=== PATIENT | female | born 1950 | race Caucasian/White ===

== ENCOUNTER → 2017-11-11 08:01 | Outpatient (CLI) | payer MEDICARE, SELFPAY ==
[2017-11-11 08:27] LABS: Absolute Lymphocyte Count 1.12 X10^3/ul (0.83-4.51); Absolute Neutrophil Count 3.6 X10^3/uL (2.0-7.7); Basophil# 0.02 X10^3/uL; Basophil% 0.4 % (0-1); Eosinophil# 0.36 X10^3/uL; Eosinophils% 6.4 % (0-5); Hematocrit 45.5 % (37-47); Hemoglobin 15.9 g/dl (12.0-15.0); Lymphocyte # 1.12 X10^3/ul (4.0); Mean Corp Hgb Conc 34.9 g/gl (32-36); Mean Corpuscular Hgb 30.3 pg (27.0-32.0); Mean Corpuscular Volume 86.7 fL (81-99); Mean Platelet Vol. 10.9 fl (6.2-12.0); Monocyte# 0.45 X10^3/uL; Neutrophil # 3.64 X10^3/uL (2.7-7.7); Platelet Count 216 K/mm3 (150-450); RBC Distribution Width CV 13.3 % (11.6-14.6); RBC Distribution Width SD 41.9 fl (35.1-43.9); Red Blood Count 5.25 M/mm3 (4.2-5.4); White Blood Count 5.6 K/mm3 (4.4-11.0)
[2017-11-11 08:28] LABS: POSITIVE COUNT NO; POSITIVE DIFFERENTIAL NO; POSITIVE MORPHOLOGY NO
[2017-11-11 08:55] LABS: ALB/GLOB Ratio 1.1 RATIO (0.9-2.4); AST(SGOT) 44 U/L (15-37); Alanine Aminotransfer ALT/SGPT 66 U/L (13-56); Albumin, Serum 3.8 g/dL (3.2-5.0); Alkaline Phosphatase 86 U/L (45-117); Anion Gap 10 (5-15); BUN 22 mg/dL (7-18); BUN/Creat Ratio 20.4 RATIO (10-20); Calcium,Total 8.9 mg/dL (8.5-10.1); Chloride 106 mmol/L (98-107); Creatinine, Serum 1.08 mg/dL (0.55-1.02); EST Glomerular Filtration Rate 54 mL/min (>60); Est Glom Filt Rate - Afr Amer 65 mL/min (>60); Globulin 3.5 g/dL (2.2-4.2); Glucose 168 mg/dL (74-106); Potassium 4.1 mmol/L (3.5-5.1); Protein, Total 7.3 g/dL (6.4-8.2); Sodium Level 140 mmol/L (136-145)
[2017-11-11 16:07] LABS: Xtra Tube EP Lab EXTRA TUBE
[2017-11-12 11:35] LABS: Carcinoembryonic Antigen 2139 2.3 ng/mL (0.0-4.7)
== END ==
PROVIDERS: Family Provider Family Medicine; PCP Family Medicine; Visit Provider Internal Medicine Hematology & Oncology
DX: C18.4 Malignant neoplasm of transverse colon (principal); C18.7 Malignant neoplasm of sigmoid colon; C55 Malignant neoplasm of uterus, part unspecified; Z15.09 Genetic susceptibility to other malignant neoplasm
CPT/HCPCS: 36415; 80053; 82378; 85025

== ENCOUNTER 2018-06-29 06:53 | Day surgery (SDC) | payer MEDICARE, SELFPAY ==
[2018-06-29 07:17] VITALS: BP 168/101; PULSE 64; RESP 16; TEMP 36.6; O2SAT 98; BMI 42.7
[2018-06-29 07:40] LABS: Bedside Glucose 136 mg/dL (70-110)
--- NOTE | 2018-06-29 08:06 | H&P.OPEN ---
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 Patient did have ileal rectal anastomosis done previously. Patient states occasionally she may have diarrhea or normal bowel movements but denies any blood. Past Medical/Surgical History - Planned Operation Planned Operative Procedure/s: flexible sigmoidoscopy Date of Operative Procedure: 06/29/18 Permit Signed: Yes S.O.S: No Is This Patient Having a Total Joint: No - Previous Hospitalizations/Surgeries HX Hospitalizations: No HX of Surgeries: LEFT KNEE SURGERY, LEFT TOTAL KNEE 2010. TUBES TIED, TONSILLECTOMY, APPENDECTOMY. HYSTERECTOMY, BSO, LYMPH NODE DISSECTION. LARGE ILLIAC REMOVED 2008. COLECTOMY 2013/ COLON CA. COLONOSCOPY 2015. BIOPSY MOLE MELANOMA/ ARM LEFT, 2016. COLONOSCOPY 04/2017 Any Problems With Anesthesia: No You/Your Family Experience Fever (Hyperthermia) With Anes: No Cholinesterase deficiency: No - Cardiovascular Hx Chest Pain within Last 2 months: No Hx of Irregular Heartbeat and/or Afib: No Hx Heart Attack: No Hx Congestive Heart Failure: No Hx Rheumatic Fever: No Hx Hypertension: Yes - STATES CONTROLLED WITH MED Hx Internal Defibrillator: No Hx Pacemaker: No Hx Cardiac Catheterization: No Hx Cardiac Surgery/Stents/Etc.: No Hx Stress Test: No Hx Pain in Legs when Walking/Leg Cramps: Yes - AT TIMES - Respiratory Chronic Cough: No HX of Shortness of Breath: Yes - SLIGHTLY SOB WITH 2 FLIGHTS STAIRS Hoarseness: No Hx Chronic Obstructive Pulmonary Disease (COPD): No Hx Asthma: No Hx Emphysema: No Hx Sleep Apnea: No Hx Respiratory Tract Infection/Cold (presently): No Do You Snore Loudly (louder than talking or can be heard): No Do You Often Feel Tired/ Fatigued/ Sleepy Dring Daytime?: No Has Anyone Observed You Stop Breathing During Sleep?: No Result (for STOP score): Negative Hx Smoking: No Smoking Status: Never smoker - Gastrointestinal Hx Gastroesophageal Reflux: No Hx Gastrointestinal Disorders: Yes - COLON CA, COLECTOMY Hx Gastrointestinal Bleed: No Hx Ulcer: No Hx Hiatal Hernia: No Difficulty Chewing/Swallowing: No Special diet followed at home: No Hx Unplanned Weight Loss of 20#: No - PLANNED WT LOSS 7 # HX Unplanned Weight Gain of 20#: No - Neurological Hx Seizures: No HX Syncope/Blackout Spells/Unconsciousness: Yes - PASSED OUT 3 YRS AGO, NOT SINCE Hx CVA/Stroke: No Hx Transient Ischemic Attacks (TIA): No Hx Multiple Sclerosis: No Hx Parkinson's Disease: No Hx Head/Neck Injury: No Hx Headaches: No Hx Back Injury/Pain: Yes - BACK PAIN OCCAS Recent Onset of Speech Difficulty: No Restless Legs: No Does patient have nerve stimulator: No - Blood Disorder Hx Leukemia: No Bleeding Tendencies: Yes - BRUISE EASILY Hx Deep Vein Thrombosis: No Hx High Cholesterol: Yes - ON MED Blood Transmitted Disease: No Hx Hepatitis: No Hx Cirrhosis: No Hx Anemia: No Hx Blood Disorders: No - Reproduction Is Patient Lactating: No Hx Hysterectomy: Yes Hx Tubal Ligation: Yes Are You Post Menopause: Yes - Genitourinary Hx Renal Disease: No - Musculoskeletal Hx Arthritis: Yes Hx Rheumatoid Arthritis: No Hx Gout: No Recent Onset of an Orthopedic Problem: No - Endocrine Hx Diabetes: No Thyroid Disease: Yes - MULTINODULAR GOITER PER HX Hx Steroid Therapy: No - Psycho/Social Hx Substance Use: No Hx Alcohol Use: No Hx Anxiety: No Hx Depression: No Mental Illness: No Hx Dementia: No - Miscellaneous Hx Cancer: Yes - UTERINE CA, COLON CA, SKIN CA,LYMPH NODE Recent Exposure to Contagious Disease: No Hx of C-Diff: No Any Loose Teeth: - PARTIAL Allergies rofecoxib [From Vioxx] Allergy (Intermediate, Verified 05/19/18 13:05) Unknown DIZZINESS - Discharge Is Pt Admitted From a Skilled Nursing, or a [facility]: No Who Could Help: family Special Equipment Used at Home: can ready lips After D/C, Where Do you Plan to Go: Return Home - From the PAT History Number of Risk Factors: 4 - Physical Exam General: Alert, Oriented x3, Cooperative, No apparent distress HEENT: Atraumatic Lungs: Normal air movement Cardiovascular: Regular rate Abdomen: Soft, Non Tender, Non-Distended Extremities: No clubbing, No cyanosis, No edema Vital Signs Temp Pulse Resp BP Pulse Ox 97.9 F 64 16 168/101 H 98 06/29/18 07:17 06/29/18 07:17 06/29/18 07:17 11/14/18 07:17 06/29/18 07:17 Oxygen Delivery Method Room Air Weight: 233 lb 7.512 oz Body Mass Index (BMI) 42.7 POC Glucose 06/29/18 07:24 POC Glucose 136 H Assessment/Plan [age]-year-old female with Pickens syndrome for a screening flexible proctoscopy Surgery Risks - Colonoscopy I discussed with the patient the risks of the procedure: Yes Risks Include but are not Limited To: Risks include but are not limited to: Bleeding, perforation requiring further surgery, inability to complete colonoscopy requiring barium enema. Patient no further questions at this time.
[2018-06-29 08:19] VITALS: BP 147/87; BP 178/90; O2SAT 95; O2SAT 96
--- NOTE | 2018-06-29 08:26 | OP.ENDO_ITS ---
Patient Name: Hermelinda López Procedure Date: 06/29/2018 7:56 AM Date of : 1950 Age: 67 Procedure: Colonoscopy Indications: High risk colon cancer surveillance: Personal history of sessile serrated colon polyp (less than 10 mm in size) with no dysplasia, High risk colon cancer surveillance: Personal history of hereditary nonpolyposis colorectal cancer (Pickens Syndrome) Providers: Isabel Santo MD Referring MD: Isabel Santo MD Medicines: None Patient Profile: Last Colonoscopy: June 2017. This is a 67 year old female. She is status post subtotal colectomy in the distant past. Complications: No immediate complications. Procedure: Pre-Anesthesia Assessment: - Prior to the procedure, a History and Physical was performed, and patient medications and allergies were reviewed. The patient's tolerance of previous anesthesia was also reviewed. The risks and benefits of the procedure and the sedation options and risks were discussed with the patient. All questions were answered, and informed consent was obtained. Prior Anticoagulants: The patient has taken no previous anticoagulant or antiplatelet agents. ASA Grade Assessment: II - A patient with mild systemic disease. After reviewing the risks and benefits, the patient was deemed in satisfactory condition to undergo the procedure. After I obtained informed consent, the scope was passed under direct vision. Throughout the procedure, the patient's blood pressure, pulse, and oxygen saturations were monitored continuously. The pediatric colonoscope was introduced through the anus and advanced to the ileorectal anastomosis. The colonoscopy was performed without difficulty. The patient tolerated the procedure well. The quality of the bowel preparation was good. Scope In: 8:10:40 AM Scope Out: 8:15:28 AM Total Procedure Duration Time 0 hours 4 minutes 48 seconds Findings: The perianal and digital rectal examinations were normal. The entire examined rectum appeared normal on direct and retroflexion views. Impression: - The entire examined rectum is normal on direct and retroflexion views. - No specimens collected. Recommendation: - Discharge patient to home. - Continue present medications. - Repeat colonoscopy in 2 years for surveillance. Procedure Code(s): --- Professional --- G0105, Colorectal cancer screening; colonoscopy on individual at high risk Diagnosis Code(s): --- Professional --- Z86.010, Personal history of colonic polyps Z85.038, Personal history of other malignant neoplasm of large intestine Z15.09, Genetic susceptibility to other malignant neoplasm CPT copyright 2017 [employer]. All rights reserved. The codes documented in this report are preliminary and upon inset cutter review may be revised to meet current compliance requirements. MD Isabel See MD 06/29/2018 8:25:40 AM This report has been signed electronically. Number of Addenda: 0 Note Initiated On: 06/29/2018 7:56 AM
== END 2018-06-29 08:44 | disposition home or self-care (01) ==
LOC: EN 06:53 → AC 06:55
PROVIDERS: Family Provider Family Medicine; PCP Family Medicine; Referring Provider Surgery; Visit Provider Surgery
DX: Z12.11 Encounter for screening for malignant neoplasm of colon (principal); Z15.09 Genetic susceptibility to other malignant neoplasm; M19.90 Unspecified osteoarthritis, unspecified site; Z86.010 Personal history of colon polyps; Z85.038 Personal history of other malignant neoplasm of large intestine; Z90.49 Acquired absence of other specified parts of digestive tract; Z85.42 Personal history of malignant neoplasm of other parts of uterus; Z85.828 Personal history of other malignant neoplasm of skin
CPT/HCPCS: G0121; 82962; J7120

== ENCOUNTER → 2018-08-01 09:56 | Outpatient (CLI) | payer MEDICARE, SELFPAY ==
--- NOTE | 2018-08-01 09:59 | BI_ITS ---
MAMMOGRAPHY - BILATERAL SCREENING REASON FOR EXAM: Female, 67 years old. Routine annual screening examination. PERTINENT HISTORY: Grandmother with breast cancer. TECHNIQUE: Digital bilateral breast grover (3D mammographic acquisition) in the CC and MLO projections. 2-D mediolateral oblique (MLO) and craniocaudad (CC) views of both breasts were obtained. CAD: Full Field Digital Mammography with Computer Added Detection was performed. COMPARISON: Comparison is made with prior examination dated July 29, 2017 and July 28, 2016. FINDINGS: Breast Composition: The breasts are almost entirely fatty. There are no dominant masses or suspicious calcifications. No other significant abnormalities are identified. There has been no significant change since the prior study. BI/SCREENING MAMM (CAD), BILAT IMPRESSION: Stable bilateral screening mammogram. Yearly follow-up mammogram recommended. (A) ASSESSMENT CATEGORY: BIRADS Category 1: Negative. A letter regarding these results will be sent to the patient by the facility within 30 days. Approximately 10% of breast cancers are not detected by mammography. A normal mammogram should not delay biopsy of a clinically suspicious abnormality. [id number] Electronically Signed: Howie De Paz MD at 11:05 EST Tel [phone], Service support ,
--- OUTSIDE RECORDS SUMMARY | 2018-11-02 22:23 | XMS RPT_ITS ---
:1950 Author Organization OHIP Support Name Relationship Address Phone SANTA LÓPEZ Unavailable [address] + [place] [address] R Unavailable Unavailable Unavailable LESLIE, SANTA Unavailable [address] + [place] [address] R Unavailable Unavailable Unavailable LESLIE, SANTA Unavailable [address] + [place] [address] R Unavailable Unavailable Unavailable LESILE, SANTA Unavailable Unavailable + LESLIE, SANTA Unavailable Unavailable + LESLIE, SANTA Unavailable Unavailable + LESLIE, SANTA Unavailable [address] + [place] [address] R Unavailable Unavailable Unavailable LESLIE, SANTA Unavailable [address] + [place] [address] R Unavailable Unavailable Unavailable LESLIE, SANTA Unavailable Unavailable + LESLIE, SANTA Unavailable Unavailable + LESLIE, SANTA Unavailable Unavailable + LESLIE, SANTA Unavailable Unavailable + LESLIE, SANTA Unavailable Unavailable + LESLIE, SANTA Unavailable Unavailable + LESLIE, SANTA Unavailable Unavailable + LESLIE, SANTA Unavailable Unavailable + LESLIE, SANTA Unavailable Unavailable + LESLIE, SANTA Unavailable [address] + [place] [address] R Unavailable Unavailable Unavailable LESLIE, SANTA Unavailable [address] + [place] [address] R Unavailable Unavailable Unavailable Care Team Providers Name Role Phone ANGELINA FOSTER, BRITTON Attending Unavailable ROSA ZAFAR, DR. CAIN Lamb Primary Care Unavailable ANGELINA FOSTER, BRITTON Attending Unavailable ROSA ZAFAR, DR. CAIN Lamb Primary Care Unavailable ANGELINA FOSTER, BRITTON Attending Unavailable ROSA ZAFAR, DR. CAIN Lamb Primary Care Unavailable ANGELINA FOSTER, BRITTON Attending Unavailable ROSA ZAFAR, DR. CAIN Lamb Primary Care Unavailable Isckarus, Mansour Attending Unavailable NAUMOFF, CAIN Primary Care Unavailable Prah, Tao Consulting Unavailable Prah, Tao Attending Unavailable NAUMOFF, CAIN Referring Unavailable NAUMOFF, CAIN Primary Care Unavailable Isckarus, Mansour Attending Unavailable NAUMOFF, CAIN Primary Care Unavailable Isckarus, Mansour Attending Unavailable Prah, Tao Consulting Unavailable Isckarus, Mansour Attending Unavailable NAUMOFF, CAIN Referring Unavailable NAUMOFF, CAIN Primary Care Unavailable Prah, Tao Consulting Unavailable Robotham, Isabel Attending Unavailable Robotham, Isabel Referring Unavailable ROSA, CAIN Primary Care Unavailable Robotham, Isabel Attending Unavailable PROBLEMS PROBLEMS DATE TYPE CONDITION / CODE ATTENDING STATUS SOURCE 08/01/2018 Unknown Z12.31 - Encounter Isckarus, Active Mike for screening [facility] mammogram for Hospital malignant neoplasm Repository of breast / Z12.31(ICD-10) 07/18/2018 Unknown Z85.038 - Personal Robotham, Active [place] history of other [facility] malignant neoplasm Hospital of large intestine / Repository Z85.038(ICD-10) 07/18/2018 Unknown Z86.010 - Personal Robotham, Active Mike history of colonic [facility] polyps / Hospital Z86.010(ICD-10) Repository 05/19/2018 Unknown C55 - Malignant Tao Peters Active [facility] neoplasm of uterus, Community part unspecified / Hospital C55(ICD-10) Repository 05/19/2018 Unknown C18.4 - Malignant PraTao cantu Active [facility] neoplasm of Community transverse colon / Hospital C18.4(ICD-10) Repository 05/19/2018 Unknown C18.7 - Malignant PraTao cantu Active [facility] neoplasm of sigmoid Community colon / Hospital C18.7(ICD-10) Repository 11/18/2017 Unknown Z15.09 - Genetic Isckarus, Active [place] susceptibility to Mansour Community other malignant Hospital neoplasm / Repository Z15.09(ICD-10) PROCEDURES PROCEDURES No Procedure Records FoundRESULTS RESULTS SCREENING MAMM (CAD), Observed: 08/01/2018 Status: F Source: [place]KE RIOS 10:00 AM [facility] REPOSITORY [facility] Imaging Services [address] [place] [address] SCREENING MAMM (CAD), BILAT MR#: [id number] Acct: [id number] Name: HERMELINDA LÓPEZ Rep #: [id number] : 1950 F 67 From: Howie De Paz MD PCP: Cain Knapp MD Status: REG CLI Study: SCREENING MAMM (CAD), BILAT Date of Exam: 08/01/18 Exam# [id number] Ordering Dr: Devendra Driver MD MAMMOGRAPHY - BILATERAL SCREENING REASON FOR EXAM: Female, 67 years old. Routine annual screening examination. PERTINENT HISTORY: Grandmother with breast cancer. TECHNIQUE: Digital bilateral breast grover (3D mammographic acquisition) in the CC and MLO projections. 2-D mediolateral oblique (MLO) and craniocaudad (CC) views of both breasts were obtained. CAD: Full Field Digital Mammography with Computer Added Detection was performed. COMPARISON: Comparison is made with prior examination dated July 29, 2017 and July 28, 2016. FINDINGS: Breast Composition: The breasts are almost entirely fatty. There are no dominant masses or suspicious calcifications. No other significant abnormalities are identified. There has been no significant change since the prior study. BI/SCREENING MAMM (CAD), BILAT IMPRESSION: Stable bilateral screening mammogram. Yearly follow-up mammogram recommended. (A) ASSESSMENT CATEGORY: BIRADS Category 1: Negative. A letter regarding these results will be sent to the patient by the facility within 30 days. Approximately 10% of breast cancers are not detected by mammography. A normal mammogram should not delay biopsy of a clinically suspicious abnormality. [id number] Electronically Signed: Howie De Paz MD at 11:05 EST Tel [phone], Service support , CC: Cain Knapp MD; Devendra Driver MD Beam Press Operator: Signed HISTORY AND PHYSICAL Observed: 06/29/2018 Status: F Source: [place] EXAM 2:41 PM [facility] REPOSITORY [facility] Medical Records Department [address] [place] [address] History and Physical 06/29/18 0806 MR#: [id number] Acct: [id number] Name: HERMELINDA LÓPEZ Rep #: [id number] : 1950 67 From: Isabel Santo MD PCP: Cain Knapp MD Status: [facility] Y Location: EN History of Present Illness Date of Admission: 06/29/18 The patient is a 67 year old F presents for a screening 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 Patient did have ileal rectal anastomosis done previously. Patient states occasionally she may have diarrhea or normal bowel movements but denies any blood. Past Medical/Surgical History - Planned Operation Planned Operative Procedure/s: flexible sigmoidoscopy Date of Operative Procedure: 06/29/18 Permit Signed: Yes S.O.S: No Is This Patient Having a Total Joint: No - Previous Hospitalizations/Surgeries HX Hospitalizations: No HX of Surgeries: LEFT KNEE SURGERY, LEFT TOTAL KNEE 2010. TUBES TIED, TONSILLECTOMY, APPENDECTOMY. HYSTERECTOMY, BSO, LYMPH NODE DISSECTION. LARGE ILLIAC REMOVED 2008. COLECTOMY 2013/ COLON CA. COLONOSCOPY 2015. BIOPSY MOLE MELANOMA/ ARM LEFT, 2017. COLONOSCOPY 04/2017 Any Problems With Anesthesia: No You/Your Family Experience Fever (Hyperthermia) With Anes: No Cholinesterase deficiency: No - Cardiovascular Hx Chest Pain within Last 2 months: No Hx of Irregular Heartbeat and/or Afib: No Hx Heart Attack: No Hx Congestive Heart Failure: No Hx Rheumatic Fever: No Hx Hypertension: Yes - STATES CONTROLLED WITH MED Hx Internal Defibrillator: No Hx Pacemaker: No Hx Cardiac Catheterization: No Hx Cardiac Surgery/Stents/Etc.: No Hx Stress Test: No Hx Pain in Legs when Walking/Leg Cramps: Yes - AT TIMES - Respiratory Chronic Cough: No HX of Shortness of Breath: Yes - SLIGHTLY SOB WITH 2 FLIGHTS STAIRS Hoarseness: No Hx Chronic Obstructive Pulmonary Disease (COPD): No Hx Asthma: No Hx Emphysema: No Hx Sleep Apnea: No Hx Respiratory Tract Infection/Cold (presently): No Do You Snore Loudly (louder than talking or can be heard): No Do You Often Feel Tired/ Fatigued/ Sleepy Dring Daytime?: No Has Anyone Observed You Stop Breathing During Sleep?: No Result (for STOP score): Negative Hx Smoking: No Smoking Status: Never smoker - Gastrointestinal Hx Gastroesophageal Reflux: No Hx Gastrointestinal Disorders: Yes - COLON CA, COLECTOMY Hx Gastrointestinal Bleed: No Hx Ulcer: No Hx Hiatal Hernia: No Difficulty Chewing/Swallowing: No Special diet followed at home: No Hx Unplanned Weight Loss of 20#: No - PLANNED WT LOSS 7 # HX Unplanned Weight Gain of 20#: No - Neurological Hx Seizures: No HX Syncope/Blackout Spells/Unconsciousness: Yes - PASSED OUT 3 YRS AGO, NOT SINCE Hx CVA/Stroke: No Hx Transient Ischemic Attacks (TIA): No Hx Multiple Sclerosis: No Hx Parkinson's Disease: No Hx Head/Neck Injury: No Hx Headaches: No Hx Back Injury/Pain: Yes - BACK PAIN OCCAS Recent Onset of Speech Difficulty: No Restless Legs: No Does patient have nerve stimulator: No - Blood Disorder Hx Leukemia: No Bleeding Tendencies: Yes - BRUISE EASILY Hx Deep Vein Thrombosis: No Hx High Cholesterol: Yes - ON MED Blood Transmitted Disease: No Hx Hepatitis: No Hx Cirrhosis: No Hx Anemia: No Hx Blood Disorders: No - Reproduction Is Patient Lactating: No Hx Hysterectomy: Yes Hx Tubal Ligation: Yes Are You Post Menopause: Yes - Genitourinary Hx Renal Disease: No - Musculoskeletal Hx Arthritis: Yes Hx Rheumatoid Arthritis: No Hx Gout: No Recent Onset of an Orthopedic Problem: No - Endocrine Hx Diabetes: No Thyroid Disease: Yes - MULTINODULAR GOITER PER HX Hx Steroid Therapy: No - Psycho/Social Hx Substance Use: No Hx Alcohol Use: No Hx Anxiety: No Hx Depression: No Mental Illness: No Hx Dementia: No - Miscellaneous Hx Cancer: Yes - UTERINE CA, COLON CA, SKIN CA,LYMPH NODE Recent Exposure to Contagious Disease: No Hx of C-Diff: No Any Loose Teeth: - PARTIAL Allergies rofecoxib [From Vioxx] Allergy (Intermediate, Verified 05/19/18 13:05) Unknown DIZZINESS - Discharge Is Pt Admitted From a Retirement, or a Retirement: No Who Could Help: family Special Equipment Used at Home: can ready lips After D/C, Where Do you Plan to Go: Return Home - From the PAT History Number of Risk Factors: 4 - Physical Exam General: Alert, Oriented x3, Cooperative, No apparent distress HEENT: Atraumatic Lungs: Normal air movement Cardiovascular: Regular rate Abdomen: Soft, Non Tender, Non-Distended Extremities: No clubbing, No cyanosis, No edema Vital Signs Temp Pulse Resp BP Pulse Ox 97.9 F 64 16 168/101 H 98 06/29/18 07:17 06/29/18 07:17 06/29/18 07:17 06/29/18 07:17 06/29/18 07:17 Oxygen Delivery Method Room Air Weight: 233 lb 7.512 oz Body Mass Index (BMI) 42.7 POC Glucose POC Glucose 136 H Assessment/Plan [age]-year-old female with Pickens syndrome for a screening flexible proctoscopy Surgery Risks - Colonoscopy I discussed with the patient the risks of the procedure: Yes Risks Include but are not Limited To: Risks include but are not limited to: Bleeding, perforation requiring further surgery, inability to complete colonoscopy requiring barium enema. Patient no further questions at this time. 06/29/18 1441 <Electronically signed by Isabel Santo MD> Date Isabel Santo MD Cosigner Signature: Date (if applicable) CC: Cain Knapp MD; Isabel Santo MD Signed OPERATIVE REPORT - Observed: 06/29/2018 Status: F Source: [place] ENDOSCOPY 8:26 AM [facility] REPOSITORY [facility] Medical Records Department [address] [place] [address] Operative Report - Endoscopy MR#: [id number] Acct: [id number] Name: HERMELINDA LÓPEZ Rep #: [id number] : 1950 67 From: Isabel Santo MD PCP: Cain Knapp MD Status: REG [facility] Patient Name: Hermelinda López Procedure Date: 06/29/2018 7:56 AM Date of : 1950 Age: 67 Procedure: Colonoscopy Indications: High risk colon cancer surveillance: Personal history of sessile serrated colon polyp (less than 10 mm in size) with no dysplasia, High risk colon cancer surveillance: Personal history of hereditary nonpolyposis colorectal cancer (Pickens Syndrome) Providers: Isabel Santo MD Referring MD: Isabel Santo MD Medicines: None Patient Profile: Last Colonoscopy: June 2017. This is a 67 year old female. She is status post subtotal colectomy in the distant past. Complications: No immediate complications. Procedure: Pre-Anesthesia Assessment: - Prior to the procedure, a History and Physical was performed, and patient medications and allergies were reviewed. The patient's tolerance of previous anesthesia was also reviewed. The risks and benefits of the procedure and the sedation options and risks were discussed with the patient. All questions were answered, and informed consent was obtained. Prior Anticoagulants: The patient has taken no previous anticoagulant or antiplatelet agents. ASA Grade Assessment: II - A patient with mild systemic disease. After reviewing the risks and benefits, the patient was deemed in satisfactory condition to undergo the procedure. After I obtained informed consent, the scope was passed under direct vision. Throughout the procedure, the patient's blood pressure, pulse, and oxygen saturations were monitored continuously. The pediatric colonoscope was introduced through the anus and advanced to the ileorectal anastomosis. The colonoscopy was performed without difficulty. The patient tolerated the procedure well. The quality of the bowel preparation was good. Scope In: 8:10:40 AM Scope Out: 8:15:28 AM Total Procedure Duration Time 0 hours 4 minutes 48 seconds Findings: The perianal and digital rectal examinations were normal. The entire examined rectum appeared normal on direct and retroflexion views. Impression: - The entire examined rectum is normal on direct and retroflexion views. - No specimens collected. Recommendation: - Discharge patient to home. - Continue present medications. - Repeat colonoscopy in 2 years for surveillance. Procedure Code(s): --- Professional --- G0105, Colorectal cancer screening; colonoscopy on individual at high risk Diagnosis Code(s): --- Professional --- Z86.010, Personal history of colonic polyps Z85.038, Personal history of other malignant neoplasm of large intestine Z15.09, Genetic susceptibility to other malignant neoplasm CPT copyright 2017 [employer]. All rights reserved. The codes documented in this report are preliminary and upon entry level marketing assistant review may be revised to meet current compliance requirements. MD Isabel See MD 06/29/2018 8:25:40 AM This report has been signed electronically. Number of Addenda: 0 Note Initiated On: 06/29/2018 7:56 AM 06/29/18 0826 Date Isabel Santo MD Cosigner Signature: Date (if indicated) CC: Cain Knapp MD; Isabel Santo MD Date Dictated: 06/29/18 0756 Date Transcribed: Beam Press Operator: WANG Signed BEDSIDE GLUCOSE Collected: 06/29/2018 Status: F Source: [place]KE 7:24 AM [facility] REPOSITORY TYPE CODE TESTS RESULT OUT OF REFERENCE UNITS RANGE LAB L501.080 70-110 mg/dL High BEDSIDE GLU 136 Result Comment: MANAGEMENT OF PATIENT CARE PER NURSING PROTOCOL Performed By: #### L501.080 #### [facility] Laboratory Point of Care [address] [place] [address] TSH Collected: 06/07/2018 Status: F Source: [facility] 3:47 PM [facility] [place] REPOSITORY TYPE CODE TESTS RESULT OUT OF RANGE REFERENCE UNITS LAB TSH(LOINC) 0.36-3.74 mcIU/mL TSH 1.03 Performed By: #### TSH, FT4, FT3 #### [facility] [address] [place] [address] FT4 Collected: 06/07/2018 Status: F Source: [facility] 3:47 PM [facility] [place] REPOSITORY TYPE CODE TESTS RESULT OUT OF RANGE REFERENCE UNITS LAB FT4(LOINC) 0.76-1.46 ng/dL Free T4 0.80 Performed By: #### TSH, FT4, FT3 #### [facility] [address] [place] [address] FT3 Collected: 06/07/2018 Status: F Source: [facility] 3:47 PM [facility] [place] REPOSITORY TYPE CODE TESTS RESULT OUT OF RANGE REFERENCE UNITS LAB FT3(LOINC) 2.30-4.00 pg/mL Free T3 2.90 Performed By: #### TSH, FT4, FT3 #### [facility] [address] [place], [place] [id number] ONCOLOGY VISIT REPORT Observed: 05/19/2018 Status: F Source: [place] 1:49 PM [facility] REPOSITORY [facility] [address] [place] [address] OFFICE VISIT Date of Service: 05/19/18 1304 MR#: [id number] Acct: [id number] Name: HERMELINDA LÓPEZ Rep #: [id number] : 1950 From: Devendra Driver MD Age/Sex: 67/F Location: OMD Status: Signed - Problem List (1) Pickens syndrome Status: Chronic (2) Uterine cancer Status: Chronic Comment: 2002 (3) Cancer of transverse colon Status: Chronic Comment: stage ii, 2013 (4) Cancer of sigmoid colon Status: Chronic Comment: stage II, 2013 - Date of Service Date of Service:: 05/19/18 - Chief Complaint Pickens syndrome follow-up - History of Present Illness 67 YOF with Pickens Syndrome and H/O: 1. 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 Date of diagnosis: April 2014. S/P total colectomy with ileorectal anastomosis. 2. Invasive moderately differentiated adenocarcinoma of the uterus, endometrioid type, with superficial myometrial invasion and confined to the inner one-third of the myometrium (T1B, N0, M0). S/P hysterectomy, BSO and lymph node dissection. Date of diagnosis: 12/18/2002. 3. 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 Date of diagnosis: 10/01/2005. S/P 7 cycles of carbo/Taxol, completed 02/25/2006. 4. Recurrent adenocarcinoma involving the left iliac node. S/P CT-guided core biopsy 09/28/2008. S/P XRT completed 02/01/2009. 5. Multinodular goiter. F/U with Dr Marion (ENT) - Past Medical/Social History Past Medical History Other Past Medical History: Deaf in Right Ear; wears hearing aid left ear Cancer: Colon cancer,Uterine cancer,Skin Other Cancer History: History of chemo (2005), radiation (2008 for lymph node involvement) 2013-large intestine removed d/t colon cancer 2 sons from Colon Cancer Past Surgical History Surgical: Colon resection,Hysterectomy,Knee replacement Other Surgical History: total hysterectomy 2002 (uterine ca) Large intestine removed to remove colon cancer 2013 Family History Paternal Past Medical History: Congestive heart failure Maternal Past Medical History: Unknown Maternal History of Cancer: Bladder cancer,Skin cancer Social History Smoking Status Never smoker Review of Systems Constitutional:: Denies: Fever, Sweats, Weight loss, Appetite change, Chills Cardiovascular:: Reports: Dyspnea on exertion - Chronic. Denies: Chest pain, Palpitations, Orthopnea, PND, Shortness of breath Respiratory: Reports: Shortness of breath upon exertion. Denies: Cough, Hemoptysis, Shortness of Breath, Wheezing Gastrointestinal:: Reports: Diarrhea, Constipation - Bouts of diarrhea and constipation O depending on what I eat. Denies: Abdominal pain, Nausea, Vomiting, Hematochezia Genitourinary: Denies: Dysuria, Hematuria, 15, Flank pain Musculoskeletal:: Denies: Back pain, Myalgia, Arthralgia Skin: Denies: Rash, Skin Changes, Wounds Neurological:: Reports: Hearing loss - Chronic. Denies: Headache, Dizziness, Visual changes, Tinnitus Psychiatric: Denies: Anxiety, Depression, Homicidal Ideations, Suicidal Ideations Vital Signs Height 5 ft 2 in Weight: 111.856 kg Weight in Pounds 246.6 lbs Pulse Ox 98 - Physical Exam General: Alert, Oriented x3, No apparent distress, - - Hard of hearing Obese ECOG 1 HEENT: Atraumatic, PERRLA, EOMI, Normocephalic Oropharynx:: Dry mucosa Neck:: Supple, Trachea midline. Negative for: JVD, bilateral Cardiac:: Regular rate, Regular rhythm, Normal S1, Normal S2. Negative for: Murmur Lungs: Clear to auscultation, Excusion symmetrical. Negative for: Rhonchi, Wheezes Abdomen:: Soft, Non-tender, Non-distended. Negative for: Hepatosplenomegaly Extremities:: - - Lower extremities with evidence for chronic venous insufficiency no ulcerations. Negative for: Cyanosis, Edema Neurological: Neuro grossly intact Skin:: Negative for: Lesions, Rash, Petechiae, Ecchymosis Psychiatric:: Appropriate affect, Euthymic Lymphatics:: Negative for: Cervical lymphadenopathy, Supraclavicular lymphadenopathy, Axillary lymphadenopathy Laboratory Data: Reviewed in EMR CBC, CMP Pathology Data: Urine cytology November 2017 no malignant cells seen Assessment and Plan Pickens syndrome is an autosomal dominant disorder caused by a germline mutation in one of several DNA mismatch repair genes. Pickens syndrome is characterized by an increased risk of colorectal cancer (CRC). Individuals with Pickens syndrome also have an increased risk of extracolonic malignancies, the most common of which is endometrial cancer. Other sites of cancer include the ovary, stomach, small bowel, hepatobiliary system, renal pelvis, and ureter, brain, and skin. There may also be an increased risk of breast, prostate, and pancreatic cancer in individuals with Pickens syndrome. Individuals with Pickens syndrome should undergo screening for CRC and extracolonic cancers. - Annual colonoscopy starting between the ages of 20 and 25 years, or two to five years prior to the earliest age of CRC diagnosis in the family, whichever comes first. In patients with Pickens syndrome undergoing surgery for CRC total colectomy with ileorectal anastomosis and annual endoscopic surveillance of the remaining rectum - Annual screening for endometrial and ovarian cancer beginning at age 30 to 35 years, or three to five years earlier than the earliest age of diagnosis of these cancers in the family - Upper endoscopy with biopsy of the gastric antrum starting at 30 to 35 years and treatment of Helicobacter pylori infection when found on biopsy. Repeat upper endoscopy every two to three years in individuals with risk factors for gastric cancer. - Annual urinalysis examination beginning at age 30 to 35 years. - Annual physical examination including careful skin and neurological examination beginning at age 25 to 30 years. - Aspirin significantly reduces the incidence of cancer in Pickens syndrome. However, further studies are needed to identify the optimal dose and to clarify the overall benefits in CRC prevention and cardiovascular endpoints compared with potential risks such as bleeding. Recommendations: Screenin- F/U with Dr Santo for lower GI endoscopy 06/2018 +/- EGD (last colonoscopy was 06/2017, EGD was 06/2017) 2- Mammo due 07/2018. 3- Urine cytology is due 11/2018. 4- Dermatology for skin cancer screen. annual to schedule 5- F/U with Dr Marion (ENT) reg. Thyroid as instructed Prevention: Take one baby ASA daily. Patient was seen impression and recommendations reviewed follow- up in 6 months Medications: Prescriptions This Visit Medication Instructions Recorded Furosemide [Lasix] 20 mg PO DAILY 05/13/17 Glimepiride [Amaryl] 1 mg PO DAILY 11/18/17 Primary Care Provider: Referring Provider: 05/19/18 2343 <Electronically signed by Devendra Driver MD> Date Devendra Driver MD Cosigner Signature: Date (if applicable) CC: CBC W/DIFF, AUTOMATED Collected: 05/12/2018 Status: F Source: [place] 8:27 AM [facility] REPOSITORY Order Comment: Reason for Laboratory Test . TYPE CODE TESTS RESULT OUT OF RANGE REFERENCE UNITS LAB L100.1000 4.4-11.0 K/mm3 Normal WBC 5.5 LAB L100.1200 4.2-5.4 M/mm3 Normal RBC 5.10 LAB L100.1300 12.0-15.0 g/dl High HGB 15.6 LAB L100.1400 37-47 % Normal HCT 44.3 LAB L100.1500 81-99 fL Normal MCV 86.9 LAB L100.1600 27.0-32.0 pg Normal MCH 30.6 LAB L100.1700 32-36 g/gl Normal MCHC 35.2 LAB L100.1810 11.6-14.6 % Normal RDW CV 13.6 LAB L100.1820 35.1-43.9 fl Normal RDW SD 42.6 LAB L100.1900 150-450 K/mm3 Normal PLT 213 LAB L100.2000 6.2-12.0 fl Normal MPV 11.0 LAB L100.2100 47-70 % Normal NEUT% 58.6 LAB L100.2200 19-41 % Normal LY% 26.0 LAB L100.2300 0-10 % Normal MONO% 7.5 LAB L100.2400 0-5 % High EO% 7.3 LAB L100.2500 0-1 % Normal BASO% 0.4 LAB L100.2550 0.0-0.9 % Normal IM GRAN % 0.200 Result Comment: IG% - Immature Granulocytes (promyelocytes, myelocytes and metamyelocytes) > 1% indicates that a LEFT SHIFT is Present. LAB L100.2620 2.0-7.7 X10 3/uL Normal Absolute Neut 3.2 LAB L100.2720 0.83-4.51 X10 3/ul Normal Absolute Lymph 1.42 Performed By: #### L100.0100, L500.4050 #### [facility] [address] [facility]. [place], [place], [address] COMPREHENSIVE METABOLIC Collected: 05/12/2018 Status: F Source: [facility] 8:27 AM [facility] REPOSITORY Order Comment: Reason for Laboratory Test . TYPE CODE TESTS RESULT OUT OF RANGE REFERENCE UNITS LAB L501.0100 74-106 mg/dL High GLU 132 Result Comment: Fasting Glucose result greater than or equal to 126 mg/dL suggests DIABETES MELLITUS per A.D.A. criteria. Please note revised GLUCOSE reference range effective 2017. LAB L501.1000 7-18 mg/dL High BUN 21 LAB L501.1100 0.55-1.02 mg/dL High CREAT,SERUM 1.09 Result Comment: The validity of the calculated GFR AND GFRAA in patients over 70 years has not been determined. Clinical correlation is essential. LAB L501.1110 >60 mL/min Low EST GFR 53 Result Comment: Non- GFR Calc LAB L501.1115 >60 mL/min Normal EST GFR - AA 64 Result Comment: GFR Calc LAB L501.1255 ml/min Normal Estimated CRCL 39.61 LAB L501.1300 10-20 RATIO Normal BUN/CRE 19.3 LAB L501.1500 6.4-8. g/dL Normal 2 T PROT 7.1 LAB L501.1800 3.2-5. g/dL Normal 0 ALB 3.9 LAB L501.1950 2.2-4. g/dL Normal 2 GLOB 3.2 LAB L501.2000 0.9-2. RATIO Normal 4 A/G 1.2 LAB L501.2200 8.5-10 mg/dL Normal .1 CA 8.9 LAB L501.4100 15-37 U/L Normal AST 23 LAB L501.4305 45-117 U/L Normal ALK P 76 LAB L501.4405 13-56 U/L Normal ALT 38 LAB L501.4600 0.20-1 mg/dL Normal .00 T BILI 0.90 LAB L501.5300 136-14 mmol/L Normal 5 NA 139 LAB L501.5600 3.5-5. mmol/L Normal 1 K 4.1 LAB L501.5900 98-107 mmol/L Normal CL 106 LAB L501.6100 21.0-3 mmol/L Normal 2.0 CO2 26.0 LAB L501.6200 5-15 Normal GAP 7 Performed By: #### L100.0100, L500.4050 #### [facility] [address] [facility]. [place], [place], [address] NM THYROID IMAGING Observed: 03/21/2018 Status: F Source: [place] W/UPTAKE MULTIPLE 1:00 PM [facility] REPOSITORY ORIGINAL NM THYROID IMAGING W/UPTAKE MULTIPLE Clinical Statement: HYPERTHYROIDISM Technique: Radiopharmaceutical: I 123 PO Dose: 261uCi Anterior and anterior oblique pinhole images Iodine uptake measurements at 6 and 24 hours Comparison study: Thyroid ultrasound 02/15/2018 Report: The 6 hour iodine uptake is 6.9 The 24 hour iodine uptake is 12.0 The thyroid gland appears normal in size. There is decreased iodine uptake which produces suboptimal imaging of the thyroid. There is a heterogenous appearance of the thyroid which correlates with findi ngs on the comparison ultrasound. Impression: Decreased iodine uptake (6.9% and 12.0% at 6 and 24 hours, respectively) and heterogenous appearance of the thyroid. The low iodine uptake is discordant with the clinical history of hyperthy roidism. Correlation with symptoms and laboratory values recommended. I have personally reviewed the images of this examination and agree with the resident's findings and interpretation. Interpreted By: Alejo Roblero MD Preliminary Report By: Claudio Kelsey MD Electronically Signed By: Alejo Roblero MD Dictated Date: 03/22/2018 9:48:20 AM Prelim Date: 03/22/2018 3:08:16 PM Sign Date: 03/22/2018 4:56:18 PM US THYROID Observed: 02/15/2018 Status: F Source: [place] 2:00 PM [facility] REPOSITORY ORIGINAL US THYROID CLINICAL STATEMENT: HYPERTHYROIDISM COMPARISON: 04/27/2017 FINDINGS: Size right thyroid lobe: 5.1 x 2.0 x 2.0 cm Size left thyroid lobe: 5.8 x 1.7 x 1.6 cm Size isthmus: 0.4 cm Estimated total number of nodules greater than or equal to 1 cm: 5 Previously visualized nodule in isthmus is no longer visualized. Nodule 1: Size: 2.0 x 1.9 x 1.2 cm, minimally decreased in size Location: Left Lower Composition: mixed cystic and solid: 1 point Echogenicity: hypoechoic: 2 points Shape: wider than tall: 0 points Margins: smooth: 0 points Echogenic foci: macrocalcifications: 1 point ACR Total Points: 4; ACR TI-RADS risk category: TR4 - moderately suspicious nodule. Nodule 2: Size: 1.8 x 1.7 x 1.2 cm, slightly decreased in size Location: Left Lower Composition: solid or almost completely solid: 2 points Echogenicity: isoechoic: 1 point Shape: wider than tall: 0 points Margins: ill-defined: 0 points Echogenic foci: none: 0 points ACR Total Points: 3; ACR TI-RADS risk category: TR3 - mildly suspicious nodule. Nodule 3: Size: 1.6 x 1.2 x 0.7 cm, slightly increased in size Location: Right Lower. Previously this was labeled to be within the isthmus Composition: solid or almost completely solid: 2 points Echogenicity: isoechoic: 1 point, most of the lesion Shape: wider than tall: 0 points Margins: smooth: 0 points Echogenic foci: none: 0 points ACR Total Points: 3; ACR TI-RADS risk category: TR3 - mildly suspicious nodule. Nodule 4: Size: 1.9 x 1.8 x 0.9 cm, slightly increased in size Location: Right Lower Composition: solid or almost completely solid: 2 points Echogenicity: hypoechoic: 2 points Shape: wider than tall: 0 points Margins: smooth: 0 points Echogenic foci: none: 0 points ACR Total Points: 4; ACR TI-RADS risk category: TR4 - moderately suspicious nodule. IMPRESSION: 1. Nodule 1: ACR TI-RADS 2017 Category 4. Recommend: Ultrasound- guided fine needle aspiration 2. Nodule 2: ACR TI-RADS 2017 Category 3. Recommend: Follow- up ultrasound in 1 year. 3. Nodule 3: ACR TI-RADS 2017 Category 3. Recommend: Follow- up ultrasound in 1 year. 4. Nodule 4: ACR TI-RADS 2017 Category 4. Recommend: Ultrasound- guided fine needle aspiration ACR TI-RADS 2017 Recommendations: TR1: No FNA or follow up TR2: No FNA or follow up TR3: FNA if >/= 2.5 cm, follow up if 1.5 - 2.4 cm in 1, 3, and 5 years TR4: FNA if >/= 1.5 cm, follow up if 1.0 - 1.4 cm in 1, 2, 3, and 5 years TR5: FNA if >/= 1.0 cm, follow up if 0.5 - 0.9 cm every year for 5 years *ACR TI-RADS recommends that no more than two nodules with the highest ACR TI-RADS total point should be biopsied and no more than four nodules should be followed. Interpreted By: Leonie Mcgarry MD Preliminary Report By: Leonie Mcgarry MD Electronically Signed By: Leonie Mcgarry MD Dictated Date: 02/17/2018 9:16:02 AM Prelim Date: 02/17/2018 9:16:02 AM Sign Date: 02/17/2018 10:37:35 AM CBC Collected: 02/11/2018 Status: F Source: [facility] 8:57 AM [facility] [place] REPOSITORY TYPE CODE TESTS RESULT OUT OF REFERENCE UNITS RANGE LAB WBC(LOINC) 4.60-10.80 10 3/mcL WBC 6.80 LAB RBCCT(LOINC 4.20-5.40 10 6/mcL ) RBC 5.27 LAB HGB(LOINC) 12.0-16.0 G/dL Hgb 16.0 LAB HCT(LOINC) 37.0-47.0 % Hct 46.2 LAB MCV(LOINC) 80.0-94.0 fL MCV 87.7 LAB MCH(LOINC) 27.0-31.2 pg MCH 30.3 LAB MCHC(LOINC) 33.0-37.0 G/dL MCHC 34.6 LAB RDW(LOINC) 11.5-14.5 % RDW 13.5 LAB PLT(LOINC) 130-400 10 3/mcL Platelet 223 LAB MPV(LOINC) 7.4-10.4 fL MPV 9.4 Performed By: #### CBC, ADIFF, ANEU, CMP, GFR, FT4, FT3, TSH, TSIG #### [address] [address] #### VIDH, MCRSO #### [address] [address] .AUTO DIFF Collected: 02/11/2018 Status: F Source: [facility] 8:57 AM [facility] [place] REPOSITORY TYPE CODE TESTS RESULT OUT OF REFERENCE UNITS RANGE LAB REYES(LOINC) 37.0-80.0 % Neutrophil % 63.4 LAB LYM(LOINC) 10.0-50.0 % Lymphocyte % 22.1 LAB MON(LOINC) 1.7-13.0 % Monocyte % 7.4 LAB EO(LOINC) 0.0-7.0 % Eosinophil % 6.6 LAB BAS(LOINC) 0.0-2.5 % Basophil % 0.5 LAB ABLYM(LOIN 0.77-3.85 10 3/mcL C) Lymphocyte, 1.50 Absolute LAB SRIKANTH(LOINC 0.15-1.00 10 3/mcL ) Monocyte, 0.50 Absolute LAB AEOS(LOINC 0.00-0.40 10 3/mcL ) Eosinophil, 0.40 Absolute LAB ABAS(LOINC 0.00-0.19 10 3/mcL ) Basophil, 0.00 Absolute Performed By: #### CBC, ADIFF, ANEU, CMP, GFR, FT4, FT3, TSH, TSIG #### [address] [address] #### [facility], [facility] #### [place] [id number] .NEUABS Collected: 02/11/2018 Status: F Source: [facility] 8:57 AM [facility] [place] REPOSITORY TYPE CODE TESTS RESULT OUT OF REFERENCE UNITS RANGE LAB ANEU(LOINC) 2.85-6.16 10 3/mcL Neutrophil, 4.30 Absolute Performed By: #### CBC, ADIFF, ANEU, CMP, GFR, FT4, FT3, TSH, TSIG #### [address] [address] #### ALTA, MCRSO #### [place] [address] CMP Collected: 02/11/2018 Status: F Source: [facility] 8:57 AM [facility] [place] REPOSITORY TYPE CODE TESTS RESULT OUT OF REFERENCE UNITS RANGE LAB GLU(LOINC) 80-115 mg/dL Glucose High Level 209 LAB NA(LOINC) 136-146 mEq/L Sodium Level 139 LAB K(LOINC) 3.5-5.1 mEq/L Potassium Level 4.5 LAB CL(LOINC) 98-107 mEq/L Chloride 100 LAB CO2(LOINC) 23-31 mEq/L CO2 28 LAB EBAL(LOINC mEq/L ) Electrolyte Balance 11.0 LAB BUN(LOINC) 7.0-18.0 mg/dL BUN High 19.3 LAB CRE(LOINC) 0.6-1.2 mg/dL Creatinine Lvl (s) 1.0 LAB BC(LOINC) 7-27 ratio BUN/Creatinine 19 Ratio LAB CA(LOINC) 8.4-10.2 mg/dL Calcium Lvl 9.9 LAB PROT(LOINC 6.0-8.3 G/dL ) Total Protein 6.9 LAB ALB(LOINC) 3.4-4.8 G/dL Albumin Level 4.3 LAB GLB(LOINC) G/dL Globulin 2.6 LAB AG(LOINC) 1.1-2.5 ratio A/G Ratio 1.7 LAB BILT(LOINC 0.2-1.0 mg/dL ) Bili Total 0.7 LAB AP(LOINC) 40-135 IU/L Alk Phos 85 LAB AST(LOINC) 10-40 IU/L AST/SGOT 21 LAB ALT(LOINC) 10-35 IU/L ALT/SGPT 30 Performed By: #### CBC, ADIFF, ANEU, CMP, GFR, FT4, FT3, TSH, TSIG #### [facility] [address] [place], [place] [address] #### VI, [facility] #### [address] [address] .GFR Collected: 02/11/2018 Status: F Source: [facility] 8:57 AM [facility] REPOSITORY TYPE CODE TESTS RESULT OUT OF REFERENCE UNITS RANGE LAB GFRAA(LOINC ml/min/1.73 ) sqm GFR >60 Gambian Result Comment: GFR Population mean for , Non- Americans Ages 20-29 = 116 mL/min/1.73 sq.m. Ages 30-39 = 107 mL/min/1.73 sq.m. Ages 40-49 = 99 mL/min/1.73 sq.m. Ages 50-59 = 93 mL/min/1.73 sq.m. Ages 60-69 = 85 mL/min/1.73 sq.m. Ages 70+ = 75 mL/min/1.73 sq.m. Chronic Kidney Disease: Less than 60 mL/min/1.73 square meters End Stage Renal Disease: Less than 15 mL/min/1.73 square meters LAB GFRNO(LOINC) ml/min/1.73sqm GFR Non- 56 Result Comment: GFR Population mean for , Non- Americans Ages 20-29 = 116 mL/min/1.73 sq.m. Ages 30-39 = 107 mL/min/1.73 sq.m. Ages 40-49 = 99 mL/min/1.73 sq.m. Ages 50-59 = 93 mL/min/1.73 sq.m. Ages 60-69 = 85 mL/min/1.73 sq.m. Ages 70+ = 75 mL/min/1.73 sq.m. Chronic Kidney Disease: Less than 60 mL/min/1.73 square meters End Stage Renal Disease: Less than 15 mL/min/1.73 square meters Performed By: #### CBC, ADIFF, ANEU, CMP, GFR, FT4, FT3, TSH, TSIG #### [address] [address] #### VISHYAM, MCRSO #### [place] [address] FT4 Collected: 02/11/2018 Status: F Source: [facility] 8:57 AM [facility] [place] REPOSITORY TYPE CODE TESTS RESULT OUT OF RANGE REFERENCE UNITS LAB FT4(LOINC) 0.6-1.7 ng/mL Free T4 1.1 Performed By: #### CBC, ADIFF, ANEU, CMP, GFR, FT4, FT3, TSH, TSIG #### [address] [address] #### [place], [facility] #### [place] [address] FT3 Collected: 02/11/2018 Status: F Source: [facility] 8:57 AM [facility] [place] REPOSITORY TYPE CODE TESTS RESULT OUT OF RANGE REFERENCE UNITS LAB FT3(LOINC) 2.3-4.0 pg/mL Free T3 3.8 Performed By: #### CBC, ADIFF, ANEU, CMP, GFR, FT4, FT3, TSH, TSIG #### [address] [address] #### AL[place], [facility] #### [place] [address] TSH Collected: 02/11/2018 Status: F Source: [facility] 8:57 AM [facility] [place] REPOSITORY TYPE CODE TESTS RESULT OUT OF RANGE REFERENCE UNITS LAB TSH(LOINC) 0.27-4.20 mcIU/mL Low TSH 0.04 Result Comment: Below normal(expected)range Performed By: #### CBC, ADIFF, ANEU, CMP, GFR, FT4, FT3, TSH, TSIG #### [address] [address] #### VIDH, [place]CR[place] #### [place] [address] VIDH Collected: 02/11/2018 Status: F Source: [facility] 8:57 AM [facility] [place] REPOSITORY TYPE CODE TESTS RESULT OUT OF RANGE REFERENCE UNITS LAB VIDH(LOINC) ng/mL Vit. D 28 25-Hydroxy Result Comment: Interpretive Values Based on Total 25(OH)D: Severe Deficiency <20 ng/mL Mild to Moderate Deficiency 20-30 ng/mL Optimum Levels 30-100 ng/mL Toxicity Possible >100 ng/mL Performed By: #### CBC, ADIFF, ANEU, CMP, GFR, FT4, FT3, TSH, TSIG #### [place] [address] #### VIDH, MCRSO #### [place] [address] MCRS1 Collected: 02/11/2018 Status: F Source: [facility] 8:57 [facility] REPOSITORY TYPE CODE TESTS RESULT OUT OF REFERENCE UNITS RANGE LAB MCRSO(LOIN 0-35 IU/mL C) Microsomal Ab <10 Result Comment: This result represents Anti-TPO antibodies which are synonymous with microsomal antibodies. Performed By: #### CBC, ADIFF, ANEU, CMP, GFR, FT4, FT3, TSH, TSIG #### [place] [address] #### VIDH, MCRSO #### [place] [address] TSI Collected: 02/11/2018 Status: F Source: [facility] 8:57 [facility] REPOSITORY TYPE CODE TESTS RESULT OUT OF REFERENCE UNITS RANGE LAB TSI(LOINC) <150 Thyroid Stim. 26 Imm-Glob. Result Comment: Performed By: [facility] [address] [place] [address] Mechanical Fitter: Claudette Mcleod#: [id number] Phone#: Performed By: #### CBC, ADIFF, ANEU, CMP, GFR, FT4, FT3, TSH, TSIG #### [address] [place], [place] [address] #### VIDH, [facility] #### [facility] [address] [place], [place] [address] ONCOLOGY VISIT REPORT Observed: 11/18/2017 Status: F Source: [place] 11:56 AM [facility] REPOSITORY [facility] [place] [address] OFFICE VISIT Date of Service: 11/18/17 1118 MR#: [id number] Acct: [id number] Name: HERMELINDA LÓPEZ Rep #: [id number] : 1950 From: Devendra Driver MD Age/Sex: 66/F Location: OMD Status: Signed - Problem List (1) Pickens syndrome Status: Chronic (2) Uterine cancer Status: Chronic Comment: 2002 (3) 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 Date of diagnosis: April 2014. S/P total colectomy with ileorectal anastomosis. 2. Invasive moderately differentiated adenocarcinoma of the uterus, endometrioid type, with superficial myometrial invasion and confined to the inner one-third of the myometrium (T1B, N0, M0). S/P hysterectomy, BSO and lymph node dissection. Date of diagnosis: 12/18/2002. 3. 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 Date of diagnosis: 10/01/2005. S/P 7 cycles of carbo/Taxol, completed 02/25/2006. 4. Recurrent adenocarcinoma involving the left iliac node. S/P CT-guided core biopsy 09/28/2008. S/P XRT completed 02/01/2009. 5. Multinodular goiter. F/U with Dr Marion (ENT) - Past Medical/Social History Past Medical History Other Past Medical History: Deaf in Right Ear; wears hearing aid left ear Cancer: Colon cancer,Uterine cancer Other Cancer History: History of chemo (2005), radiation (2008 for lymph node involvement) 2013-large intestine removed d/t colon cancer 2 sons from Colon Cancer Past Surgical History Surgical: Colon resection,Hysterectomy,Knee replacement Other Surgical History: total hysterectomy 2002 (uterine ca) Large intestine removed to remove colon cancer 2013 Family History Paternal Past Medical History: Congestive heart failure Maternal Past Medical History: Unknown Maternal History of Cancer: Bladder cancer,Skin cancer Social History Smoking Status Never smoker Review of Systems Constitutional:: Denies: Fever, Sweats, Weight loss, Appetite change, Chills Cardiovascular:: Denies: Chest pain, Palpitations, Dyspnea on exertion, Orthopnea, PND, Shortness of breath Respiratory: Denies: Cough, Hemoptysis, Shortness of Breath, Wheezing Gastrointestinal:: Denies: Abdominal pain, Nausea, Vomiting, Diarrhea, Constipation, Hematochezia Genitourinary: Denies: Dysuria, Hematuria, 15, Flank pain Musculoskeletal:: Reports: Arthritis - DJD, Arthralgia. Denies: Back pain, Myalgia Skin: Denies: Rash, Skin Changes, Wounds Neurological:: Reports: Hearing loss - Unchanged. Denies: Headache, Dizziness, Visual changes, Tinnitus Psychiatric: Denies: Anxiety, Depression, Homicidal Ideations, Suicidal Ideations Vital Signs Height 5 ft 2 in Weight: 114.94 kg Weight in Pounds 253.4 lbs Pulse Ox 95 - Physical Exam General: Alert, Oriented x3, No apparent distress, - - Obese ECOG 1 HEENT: Atraumatic, PERRLA, EOMI, Normocephalic Oropharynx:: Dry mucosa Neck:: Supple, Trachea midline. Negative for: JVD, bilateral Cardiac:: Regular rate, Regular rhythm, Normal S1, Normal S2. Negative for: Murmur Lungs: Clear to auscultation, Excusion symmetrical. Negative for: Rhonchi, Wheezes Abdomen:: Soft, Non-tender, Non-distended. Negative for: Hepatosplenomegaly Extremities:: - - DJD. Negative for: Cyanosis, Edema Neurological: Neuro grossly intact Skin:: Negative for: Lesions, Rash, Petechiae, Ecchymosis Psychiatric:: Appropriate affect, Euthymic Lymphatics:: Negative for: Cervical lymphadenopathy, Supraclavicular lymphadenopathy, Axillary lymphadenopathy Laboratory Data: Reviewed in EMR CBC and CMP Assessment and Plan Pickens syndrome is an autosomal dominant disorder caused by a germline mutation in one of several DNA mismatch repair genes. Pickens syndrome is characterized by an increased risk of colorectal cancer (CRC). Individuals with Pickens syndrome also have an increased risk of extracolonic malignancies, the most common of which is endometrial cancer. Other sites of cancer include the ovary, stomach, small bowel, hepatobiliary system, renal pelvis, and ureter, brain, and skin. There may also be an increased risk of breast, prostate, and pancreatic cancer in individuals with Pickens syndrome. Individuals with Pickens syndrome should undergo screening for CRC and extracolonic cancers. - Annual colonoscopy starting between the ages of 20 and 25 years, or two to five years prior to the earliest age of CRC diagnosis in the family, whichever comes first. In patients with Pickens syndrome undergoing surgery for CRC total colectomy with ileorectal anastomosis and annual endoscopic surveillance of the remaining rectum - Annual screening for endometrial and ovarian cancer beginning at age 30 to 35 years, or three to five years earlier than the earliest age of diagnosis of these cancers in the family - Upper endoscopy with biopsy of the gastric antrum starting at 30 to 35 years and treatment of Helicobacter pylori infection when found on biopsy. Repeat upper endoscopy every two to three years in individuals with risk factors for gastric cancer. - Annual urinalysis examination beginning at age 30 to 35 years. - Annual physical examination including careful skin and neurological examination beginning at age 25 to 30 years. - Aspirin significantly reduces the incidence of cancer in Pickens syndrome. However, further studies are needed to identify the optimal dose and to clarify the overall benefits in CRC prevention and cardiovascular endpoints compared with potential risks such as bleeding. Recommendations: Screenin- F/U with Dr Santo for lower GI endoscopy 06/2018 +/- EGD (last colonoscopy was 06/2017, EGD was 06/2017) 2- Mammo due 07/2018. 3- Urine cytology is due now for 2018. 4- Dermatology for skin cancer screen. annual scheduled 5- F/U with Dr Marion (ENT) reg. Thyroid as instructed Prevention: Take one baby ASA daily. Medications: Prescriptions This Visit Medication Instructions Recorded Furosemide [Lasix] 20 mg PO DAILY 05/13/17 Primary Care Provider: Referring Provider: 11/18/17 9676 <Electronically signed by Devendra Driver MD> Date Devendra Driver MD Cosigner Signature: Date (if applicable) CC: CYTOLOGY, BODY FLUID / Collected: 11/18/2017 Status: F Source: [place] 11:52 AM [facility] REPOSITORY Order Comment: Reason for Laboratory Test ROUTINE CHECK - URINE Specimen Source: URINE TYPE CODE TESTS RESULT OUT OF RANGE REFERENCE UNITS LAB L350.1000 SEE Normal PATHOLOGY CYTOLOGY,BF REPORT /CSF Result Comment: Specimen submitted to Anatomical Pathology Department for testing. Performed By: #### L350.1000 #### [facility] [address] [place], [address] CYTOSPIN ON FLUID Observed: 11/18/2017 Status: F Source: [place] 12:00 AM [facility] REPOSITORY Patient: HERMELINDA LÓPEZ : 1950 (66/F) Acct Num: [id number] Phys: Tao Peters MD Unit Num: [id number] Loc: OMD Specimen: [id number] Received: 11/18/17 - 1324 Spec Type: CYSPIN FL TISSUES TISSUES: Urine COMMENT Clinical correlation and appropriate follow up are necessary. CYTOLOGY GROSS Received is 70 ml of bright yellow fluid labeled with the patient's name and and designated per the requisition as urine. Submitted for cytology preparation. 11/18/17 TC:5 CPT: 54342 CYTOLOGY STUDY Slides are reviewed. The specimen predominantly consists of benign squamous cells, a few urothelial cells, neutrophils and organisms consistent with bacteria. DIAGNOSIS CYTOLOGY Urine for cytology (cytospin): Negative for malignant cells. SJ:jos 11/19/17 HEADER OPERATION: Not noted PRE-OP DIAGNOSIS: Pickens syndrome, history of cancer TISSUE SUBMITTED: Urine for cytology Signed Pavel Adrian 11/19/17 <signature on file> Performed By: #### PCYSPIN #### [facility] [address] [place], [address] CBC W/DIFF, AUTOMATED Collected: 11/11/2017 Status: F Source: [place] 8:07 AM [facility] REPOSITORY TYPE CODE TESTS RESULT OUT OF RANGE REFERENCE UNITS LAB L100.1000 4.4-11.0 K/mm3 Normal WBC 5.6 LAB L100.1200 4.2-5.4 M/mm3 Normal RBC 5.25 LAB L100.1300 12.0-15.0 g/dl High HGB 15.9 LAB L100.1400 37-47 % Normal HCT 45.5 LAB L100.1500 81-99 fL Normal MCV 86.7 LAB L100.1600 27.0-32.0 pg Normal MCH 30.3 LAB L100.1700 32-36 g/gl Normal MCHC 34.9 LAB L100.1810 11.6-14.6 % Normal RDW CV 13.3 LAB L100.1820 35.1-43.9 fl Normal RDW SD 41.9 LAB L100.1900 150-450 K/mm3 Normal PLT 216 LAB L100.2000 6.2-12.0 fl Normal MPV 10.9 LAB L100.2100 47-70 % Normal NEUT% 65.0 LAB L100.2200 19-41 % Normal LY% 20.0 LAB L100.2300 0-10 % Normal MONO% 8.0 LAB L100.2400 0-5 % High EO% 6.4 LAB L100.2500 0-1 % Normal BASO% 0.4 LAB L100.2550 0.0-0.9 % Normal IM GRAN % 0.200 Result Comment: IG% - Immature Granulocytes (promyelocytes, myelocytes and metamyelocytes) > 1% indicates that a LEFT SHIFT is Present. LAB L100.2620 2.0-7.7 X10 3/uL Normal Absolute Neut 3.6 LAB L100.2720 0.83-4.51 X10 3/ul Normal Absolute Lymph 1.12 Performed By: #### L100.0100 #### [facility] [address] [place], [address] COMPREHENSIVE METABOLIC Collected: 11/11/2017 Status: F Source: [place] 8:07 AM [facility] REPOSITORY Order Comment: Reason for Laboratory Test ROUTINE CHECK TYPE CODE TESTS RESULT OUT OF RANGE REFERENCE UNITS LAB L501.0100 74-106 mg/dL High GLU 168 Result Comment: Fasting Glucose result greater than or equal to 126 mg/dL suggests DIABETES MELLITUS per A.D.A. criteria. Please note revised GLUCOSE reference range effective 2017. LAB L501.1000 7-18 mg/dL High BUN 22 LAB L501.1100 0.55-1.02 mg/dL High CREAT,SERUM 1.08 Result Comment: The validity of the calculated GFR AND GFRAA in patients over 70 years has not been determined. Clinical correlation is essential. LAB L501.1110 >60 mL/min Low EST GFR 54 Result Comment: Non- GFR Calc LAB L501.1115 >60 mL/min Normal EST GFR - AA 65 Result Comment: GFR Calc LAB L501.1300 10-20 RATIO High BUN/CRE 20.4 LAB L501.1500 6.4-8.2 g/dL T Normal PROT 7.3 LAB L501.1800 3.2-5.0 g/dL Normal ALB 3.8 LAB L501.1950 2.2-4.2 g/dL Normal GLOB 3.5 LAB L501.2000 0.9-2.4 RATIO Normal A/G 1.1 LAB L501.2200 8.5-10.1 mg/dL CA Normal 8.9 LAB L501.4100 15-37 U/L High AST 44 LAB L501.4305 45-117 U/L Normal ALK P 86 LAB L501.4405 13-56 U/L High ALT 66 Result Comment: Please note revised ALT reference range effective 2017. LAB L501.4600 0.20-1.00 mg/dL Normal T BILI 0.90 LAB L501.5300 136-145 mmol/L Normal NA 140 LAB L501.5600 3.5-5.1 mmol/L Normal K 4.1 LAB L501.5900 98-107 mmol/L Normal CL 106 LAB L501.6100 21.0-32.0 mmol/L Normal CO2 24.0 LAB L501.6200 5-15 Normal GAP 10 Performed By: #### L500.4050 #### [facility] [address] [place], [place], [address] #### L3100.2275 #### [facility] (refer to report for specific site) refer to report for address and phone number CEA SERIAL MONITOR Collected: 11/11/2017 Status: F Source: LAGRANGE 8:07 AM [facility] REPOSITORY Order Comment: Reason for Laboratory Test ROUTINE CHECK TYPE CODE TESTS RESULT OUT OF RANGE REFERENCE UNITS LAB L3100.2310 0.0-4.7 ng/mL Normal CEA 2139 2.3 Result Comment: Adilene ECLIA methodology Nonsmokers <3.9 Smokers <5.6 Performed at: [address] [id number] Mechanical Fitter: Willy Guillory PhD, Phone: [phone] LAB L3764.4421 Normal CEA SM GRAPH Result Comment: Scanned image report available in EMR Performed By: #### L500.4050 #### [facility] [address], [place], [address] #### L3100.2275 #### [facility] (refer to report for specific site) refer to report for address and phone number ALLERGIES ALLERGIES DATE TYPE / CODE NAME / CODE REACTION SEVERITY SOURCE 05/19/2018 Drug rofecoxib/F0 Unknown MO [facility] Allergy/4160 [id number]([facility] [address](SNOMED ORM) Repository CT) ENCOUNTERS ENCOUNTERS ADMIT/DISCHARGE ACCOUNT NUMBER ADMITTING ENCOUNTER LOCATION SOURCE CLASS 08/01/2018 [id number] Ambulatory [facility] ding:OPBI Repository 06/29/2018/06/29/20 [id number] Ambulatory [address] ding:ENRoom: Repository AC17 06/29/2018/06/29/20 [id number] Ambulatory BMSBuilding: [place] [address] BMS.CF.[facility] Repository 06/07/2018/06/07/20 [id number] Ambulatory [address] ding:OLAB [facility] Repository 05/19/2018 [id number] Ambulatory BMSBuilding: [place] BMS.CF.[facility] Repository 05/19/2018 [id number] Ambulatory [facility] ding:OMD Repository 03/21/2018/03/21/20 [id number] Ambulatory [address] ding:RAD Foundation Repository 02/15/2018/02/16/20 [id number] Ambulatory [address] ding:RAD [facility] Repository 02/11/2018/02/12/20 [id number] Ambulatory [address] ding:OLAB [facility] Repository 11/18/2017 [id number] Ambulatory BMSBuilding: [place] BMS.CF.[facility] Repository 11/11/2017 [id number] Ambulatory [facility] ding:LAB Repository PAYERS PAYERS ENCOUNTER GUARANTOR PAYER SUBSCRIBER SOURCE 08/01/2018 HERMELINDA Zheng Primary Insurance:AETNA HERMELINDA L Mike [id number] MCRPolicy Number: GEISERDOB: Formerly [facility] ANGELICA GARCIABLBTQTEffective [id number], [place] Date:8044-15-63Uo Box Repository [address]Kvt: [phone] [place] [phone] () [address]WP: 08/01/2018 Secondary NOT GIVENUNK Mike Insurance:SELF PAY Community INSURANCEPolicy Number: Hospital Effective Repository Date:2017-11-18 06/29/2018 HERMELINDA Zheng Primary Insurance:AETNA HERMELINDA Zheng [place] [id number] MCRPolicy Number: GEISERDOB: Formerly [facility] ANGLEICA HUTTONBTQTEffective [id number], [place] Date:8441-96-32Ih Box Repository [address]Rgc: [phone] [place] [phone] () [phone]: 06/29/2018 Secondary NOT GIVENUNK [place] Insurance:SELF PAY Community INSURANCEPolicy Number: Hospital Effective Repository Date:2018-05-23 06/29/2018 HERMELINDA L Primary Insurance:AETNICK Zheng [place] [id number] MCRPolicy Number: GEISERDOB: Community ANGELICA OLIVIERQWILYffective [id number], [place] Date:0567-24-02Yg Box Repository [address]Uvj: [phone] CHE[place] [phone] (HP) [phone]: 06/29/2018 Secondary NOT GIVENUNK [place] Insurance:SELF PAY Community INSURANCEPolicy Number: Hospital Effective Repository Date:2018-06-29 06/07/2018 HERMELINDA Zheng Primary Insurance:AETNA HERMELINDA L [facility] GEISERDOB: [facility]OB: [facility] [place] Number: [id number] Repository ANGELICA Eng [facility], Date[facility]2018-06-07 - [place], [place] [address]Qtr: [id number] Name:[facility] [address]Cll: [address] CHEMA Bateman (HP)Tel: [phone]: [phone]) (HP) (WP) [phone] (WP) 05/19/2018 HERMELINDA Zheng Primary Insurance:BLU Zheng Mike [id number] MCRPolicy Number: GEISERDOB: [place] OLIVIERQWILYffective [id number], [place] Date:9267-48-58Ch Box Repository [address]Ylv: [phone] [place] [phone] (HP) [phone]: 05/19/2018 Secondary NOT GIVENUNK [place] Insurance:SELF PAY Community INSURANCEPolicy Number: Hospital Effective Repository Date:2018-05-19 05/19/2018 HERMELINDA L Primary Insurance:AETNA HERMELINDA Zheng Mike [id number] MCRPolicy Number: GEISERDOB: Formerly [facility] ANGELICA HUTTONBTQTEffective [id number], [place] Date:6052-43-23Ep Box Repository [address]Dru: [phone], [place] [phone] (HP) [phone]: 05/19/2018 Secondary NOT GIVENUNK Mike Insurance:SELF PAY Community INSURANCEPolicy Number: Hospital Effective Repository Date:2016-11-10 03/21/2018 HERMELINDA L Primary Insurance:AETNA HERMELINDA L [facility] GEISERDOB: MEDICARE HMO AMEPolicy GEISERDOB: [facility] [place] Number: [id number] Repository ANGELICA OLIVIERQWILYffeanthony [facility], Date:2018-03-10 [place], [place] [address]Mdf: [id number] Name:[facility] [address]Nwz: [id number] [place] [address] (HP)Tel: [phone]: [phone]) (HP) (WP) [phone] (WP) 02/15/2018 HERMELINDA L Primary Insurance:AETNA HERMELINDA Zheng [facility] GEISERDOB: MEDICARE HMO AMEPolicy GEISERDOB: [facility] [place] Number: [id number] Repository ANGELICA OLIVIERQWILYffective [facility], Date:2018-02-10 - [place], [place] [address]Jfc: [id number] Name:[facility] [address]Hoa: [address] [place] [address] (HP)Tel: [phone]: [phone]) (HP) (WP) [phone] (WP) 02/11/2018 HERMELINDA L Primary Insurance:AETNA HERMELINDA Zheng [facility] GEISERDOB[facility] GE[facility]: [facility] [place] Number: [id number] Repository ANGELICA ALMANZA, Date:2018-02-11 - [place] [address]Jyk: [id number] Name:[place] [address]Wss: [address] CHEMA Bateman (HP)Tel: [phone]: [phone] (HP) (WP) [phone] (WP) 11/18/2017 HERMELINDA L Primary Insurance:AETNA HERMELINDA Zheng Mike [id number] Cristian MCRPolicy Number: GEISERDOB: Community [place]var[place] SOYQTEffective [id number], Date:6326-53-39Eh Box Repository [place] [address]Eit: [id number] [place] [address]WP: [phone] (HP) [phone] 11/18/2017 Secondary NOT GIVENUNK [place] Insurance:SELF PAY Community INSURANCEPolicy Number: Hospital Effective Repository Date:2017-11-18 11/11/2017 HERMELINDA L Primary Insurance:AETNA HERMELINDA Zheng Mike [id number] Cristian MCRPolicy Number: GEISERDOB: Community [place] SOYQTEffective [id number], Date:0368-74-32OJ BOX Repository [place] [address]Qsg: [id number] [place] [address]WP: [phone] (HP) [phone] 11/11/2017 Secondary NOT GIVENUNK Mike Insurance:SELF PAY Community INSURANCEPolicy Number: Hospital Effective Repository Date:2017-11-11
== END ==
PROVIDERS: Family Provider Family Medicine; PCP Family Medicine; Visit Provider Internal Medicine Hematology & Oncology
DX: Z12.31 Encounter for screening mammogram for malignant neoplasm of breast (principal)
CPT/HCPCS: 77063; 77067

== ENCOUNTER → 2019-08-07 09:43 | Outpatient (CLI) | payer MEDICARE, SELFPAY ==
[2018-11-24 13:09] VITALS: BMI 43.5
--- NOTE | 2019-08-07 09:43 | BI_ITS ---
MAMMOGRAPHY - BILATERAL SCREENING 3-D TOMOSYNTHESIS REASON FOR EXAM: Female, 68 years old. FM HX MAT GMA 40, P/H OF UTERINE AND COLON CA 2013, MELANOMA EXCISED FROM ARM 07/2017 PERTINENT HISTORY: Maternal grandmother with breast cancer.. TECHNIQUE: 2-D mammograms and 3-D Tomosynthesis of the breast (s) were performed. CAD was performed. COMPARISON: 08/01/2018, 07/29/2017 FINDINGS: The breast composition is almost entirely fat. Small benign nodule in the left upper outer quadrant measuring 4.9 x 6.9 MM dating back to 07/29/2017, likely benign due to intramammary lymph node. Scattered benign calcifications are seen. No dense spiculated masses or suspicious microcalcifications are identified. No architectural distortion is identified. There is no skin thickening or retraction. There has been no significant change since the prior study. BI/SCREEN MAMM (CAD) W/LATASHA BILAT IMPRESSION: No mammographic signs of malignancy. Routine yearly mammograms recommended. ASSESSMENT CATEGORY: BIRADS Category 2: Benign. A letter regarding these results will be sent to the patient by the facility within 30 days. FOLLOW UP RECOMMENDATION: Yearly follow up mammogram recommended. (A) Approximately 10% of breast cancers are not detected by mammography. A normal mammogram should not delay biopsy of a clinically suspicious abnormality. Electronically Signed: Chino Wills MD at 21:37 EST Tel [phone], Service support ,
== END ==
PROVIDERS: Family Provider Family Medicine; PCP Family Medicine; Referring Provider Internal Medicine Hematology & Oncology; Visit Provider Internal Medicine Hematology & Oncology
DX: Z12.31 Encounter for screening mammogram for malignant neoplasm of breast (principal); Z80.3 Family history of malignant neoplasm of breast
CPT/HCPCS: 77063; 77067

== ENCOUNTER 2020-07-03 06:40 | Day surgery (SDC) | payer MEDICARE, SELFPAY ==
[2020-06-11 09:22] VITALS: BMI 45.5
--- NOTE | 2020-07-03 07:00 | HP_ITS ---
Intake Vital Signs 06/11/20 Height 5 ft 2 in 06/11/20 Weight: 249 lb 06/11/20 BMI 45.5 06/11/20 BP 160/89 H 06/11/20 Blood Pressure Location Rt brachial 06/11/20 Position Sitting Intake Visit Reasons: C-Scope Rectal Bleeding Chief Complaint: c-scope/egd Senior Editor Required: No Is patient in pain?: No Allergies rofecoxib [From Vioxx] Allergy (Intermediate, Verified 06/11/20 09:23) Unknown Medications Atenolol [Tenormin (Beta Yolanda)] 50 mg PO BID 02/26/14 [History Confirmed 02/26/20] Atorvastatin Calcium [Lipitor] 40 mg PO DAILY 02/26/14 [History Confirmed 02/26/20] Calcium Carbonate/Vitamin D3 [Calcium 600 + Vit D Tablet] 2 ea PO DAILY 02/26/14 [History Confirmed 02/26/20] Multivitamins,Ther W-Minerals [Multivitamin With Minerals (BKC)] 1 tab PO DAILY 02/26/14 [History Confirmed 02/26/20] Naproxen Sodium [Aleve] 1 - 2 mg PO DAILY PRN 02/26/14 [History Confirmed 02/26/20] Furosemide [Lasix] 20 mg PO DAILY 05/13/17 [History Confirmed 02/26/20] Cholecalciferol (Vitamin D3) [Vitamin D3] 5,000 unit PO DAILY 05/19/18 [History Confirmed 02/26/20] Cyanocobalamin [Vitamin B12] 500 mcg PO DAILY@0800 05/19/18 [History Confirmed 02/26/20] Methimazole [Tapazole] 2.5 mg PO DAILY 05/19/18 [History Confirmed 02/26/20] metFORMIN HCl [Glucophage] 500 mg PO BIDCM 05/19/18 [History Confirmed 02/26/20] Betamethasone/Propylene Glyc [Betamethasone Dp Aug 0.05% Oin] 15 gm TP DAILY PRN 11/24/18 [History Confirmed 02/26/20] nystatin 100,000 unit/gram topical powder TOPICAL 02/26/20 [History Confirmed 02/26/20] cyclosporine 0.05 % eye drops in a dropperette 1 drp OPHTHALMIC Q12H 06/11/20 [History Confirmed 06/11/20] PFSH Medical History Cancer of sigmoid colon (Chronic) Cancer of transverse colon (Chronic) Uterine cancer (Chronic) Pickens syndrome (Chronic) Foot fracture, right (Acute) Hyperlipidemia (Acute) Iliac node removal (Acute) Melanoma (Acute) Hypertension (Chronic) Surgical History History of appendectomy (Acute) History of colectomy (Acute) History of hysterectomy (Acute) History of tonsillectomy (Acute) History of tubal ligation (Acute) Family History Son Colon cancer Father Heart disease Grandmother Breast cancer Social History (Updated 06/11/20 @ 10:[address] Isabel Santo MD) Smoking Status: Never smoker HPI HPI HPI: AUGUSTIN NELSON, is a 69 F who presents to the office today for HPI HPI Surgical H&P: Yes HPI: AUGUSTIN NELSON, is a 69 F who presents to the office today for EGD and proctoscopy for Pickens syndrome. The patient has had blood per rectum twice once on 10 May and another in May on the only a little bit when she wipes. Patient denies any abdominal pain or any reflux or heartburn. Patient states she does have a little bit of a cough with the colder air. Patient states she has diarrhea about 11 times a day ever since her surgery in 2013 is wondering if there is anything that she could eat or take to help this. She had been told to try some higher fiber foods. ROS General General: Yes weight change and colon cancer; no fatigue, breast cancer or weakness HEENT HEENT: No difficulty swallowing, eye injury, eye surgery, swollen glands or hoarseness Endo Endocrine: Yes thyroid disease and diabetes mellitus; no thyroid cancer, Hair loss, heat intolerance or cold intolerance Breast Breast: No left breast lump, right breast lump, nipple discharge, breast pain, abnormal mammogram, abnormal US or breast enlargement Musc Musculoskeletal: Yes back problems and arthritis; no rheumatoid arthritis, gout or joint pain Cardio Cardiovascular: Yes high blood pressure; no pacemaker, heart disease, atrial fibrillation, heart attack, heart stent, palpitations, shortness of breat with exertion or chest pain Psych Psychiatric: No depression, anxiety or hearing voices Resp Respiratory: Yes shortness of breath, No sleep apnea, No cough, No COPD, No asthma, No emphysema, No wheezing Gastro Gastrointestinal: No abdominal pain, No nausea or vomiting, Yes diarrhea, No constipation, No blood in stool, No acid reflux, No hemorrhoids, No ulcers, No gallbladder problem, No black,tarry stools Neuro Neurologic: No weakness Exam Const General: cooperative, healthy appearing, comfortable Chest Breast Palpation: No nipple discharge Resp Effort & Inspection: normal respiratory effort Cardio Rate: regular rate GI Palpation: soft, no guarding, nontender Rectal Exam: other (Deferred) Assessment & Plan Problems 1. Pickens syndrome Z15.09 Plan Did discuss with patient due to her total colectomy with the ileorectal pouch she is going to have diarrhea would recommend Imodium; however, patient states she initially did take Imodium and that never did work after the surgery. Did discuss with patient would not recommend high-fiber foods etc. she can make the diarrhea worse recommend maybe trying lower fiber diarrhea. Patient also question whether weight loss would help. Did discuss that weight loss would help with her diabetes and not think it would do a lot for her diarrhea as the stool in the small bowel is typically liquid and the large bowel does remove a large amount of liquid from the stool so without having a large bowel she will have diarrhea. Patient expressed understanding. I have discussed the above with the patient. I have offered the patient EGD and proctoscopy for screening for Pickens syndrome for evaluation. I have explained the risks/benefits of the procedure and described the procedure. I have discussed the risks with the patient, including but not limited to: infection, bleeding, perforation of the GI tract requiring emergency surgery, inability to complete the procedure, injury to any internal organs, complications of anesthesia, etc. - the patient understands and agrees to proceed. I have answered all the patient's questions to the patient's satisfaction and the patient has no further questions. The patient has been given instructions for the colon cleansing preparation-1 day of clears, MiraLAX Dulcolax split prep with only 2 Dulcolax as patient has a hard time doing the enemas. Isabel Santo M.D. Pager: [phone] [facility] [address] [place] [address], [facility], [address] [place] [id number] Office: [phone] . Plan Detail Follow Up We will schedule EGD and colonoscopy Coding Level of Care Code Off vis,est,level 3 Diagnoses Pickens syndrome Z15.09 COVID (Procedure Consent) Procedure Criteria Procedure Criteria: Yes Elective The surgeon/proceduralist and patient have discussed in detail the risk of exposure to and/or potential harm posed by the COVID-19 virus with having a surgery/procedure at this time versus the risk of? delaying the surgery/procedure. It is not possible to know either the risk of delaying the surgery or procedure or chance of getting an infection with perfect accuracy, but a joint decision was made between the patient and the surgeon/proceduralist ?to proceed at this time with the scheduled surgery/procedure as indicated on the consent form. I have re-examined the patient. There are no clinical changes since date of exam.
[2020-07-03 07:23] VITALS: BP 146/79; PULSE 72; RESP 16; TEMP 36.6; O2SAT 98; BMI 44.9
[2020-07-03] MEDS: Lactated Ringers 1,000 ML 100 ML IV (07:36)
--- NOTE | 2020-07-03 08:00 | IMM_PTH ---
PATIENT: AUGUSTIN NELSON LOC: EN U#:[id number] AGE/SX: 69/F ROOM: RE07/03/[address]: Dr. Isabel Santo MD : 1950 BED: DIS: 07/03/2020 SPEC #: [id number] RECD: 07/04/20 09:10 STATUS: BASILIO REJeremy #: [id number] FILIPPO: 07/03/20 08:[address]: Isabel Santo DEPT: IMMUNOHISTOCHEMISTRY RECD BY: Jaelyn Bautista ENTERED: 07/04/20 09:10 SP TYPE: IMMUNO OTHR DR: Dr. Irving Knapp MD Tissues: A - Stomach, NOS C - Esophageal mucous membrane Procedures: H Pylori (initial) PHYSICIAN & [place] [address] SPECIMEN INFORMATION: Tissue Source: A - Antrum biopsy, C - GE junction biopsy Clinical Info: Pickens syndrome Specimen Number: [id number] A & C CPT code: 27208 x2 METHODOLOGY: Deparaffinized sections of prefer/formalin-fixed tissue or PAP/DQ stained slides are incubated with monoclonal/polyclonal antibodies/oligonucleotide probes. Localization is made via biotin free immunoperoxidase method. Appropriate controls are performed and reacted as expected. Results on target cell population are indicated in the following table: RESULTS: ANTIBODY / CLONE RESULT Block A H Pylori (polyclonal) negative Block C P53 (DO-7) negative These tests were developed and their performance characteristics determined by [facility]. They may not have been cleared or approved by the U.S. Food and Drug Administration. The FDA has determined that such clearance or approval is not necessary. The above immunohistochemical/dualISH markers are ordered and reviewed by the pathologist. INTERPRETATION: A. Antrum, biopsy: Negative for Helicobacter pylori organisms. C. GE junction, biopsy: No evidence of dysplasia. AM:jos 07/08/20
--- NOTE | 2020-07-03 08:00 | EGD_PTH ---
PATIENT: AUGUSTIN NELSON LOC: EN U#:[id number] AGE/SX: 69/F ROOM: RE07/03/[address]: Dr. Isabel Santo MD : 1950 BED: DIS: 07/03/2020 SPEC #: [id number] RECD: 07/03/20 13:27 STATUS: BASILIO ZEKE #: [id number] FILIPPO: 07/03/20 08:[address]: Isabel Santo DEPT: SURGICAL PATHOLOGY RECD BY: Karla Brennan ENTERED: 07/04/20 07:32 SP TYPE: EGD BIOPSY LOUISE DR: Dr. Irving Knapp MD Tissues: A - Gastric mucous membrane B - Gastric mucous membrane C - Gastric mucous membrane Procedures: Special Stain Group II Surgery Specimen Level IV Alcian Blue/PAS (control) HEADER OPERATION: Colonoscopy, EGD ([facility]) PRE-OP DIAGNOSIS: Pickens syndrome TISSUE SUBMITTED: A - Antrum biopsy for histo and H. pylori, B - Gastric polyp biopsy, C - GE junction biopsy MICROSCOPIC DIAGNOSIS A. Gastric antrum, biopsy: Chronic gastritis. See comment. B. Gastric polyp, biopsy: Suggestive of hyperplastic polyp. See comment. C. GE junction, biopsy: Chronic inflammation. Focal changes of reflux. Focal goblet cell metaplasia. No evidence of dysplasia. See comment. AM:jos 07/05/20 COMMENT A. The results of immunohistochemistry for Helicobacter pylori will be reported separately ([id number]). B. The specimen consists of superficial gastric mucosa only. C. Immunohistochemistry ([id number]) supports the above diagnosis. Alcian blue/PAS stain with matched control supports the above diagnosis. MICROSCOPIC DESCRIPTION Slides are reviewed. GROSS DESCRIPTION A - Received in fixative is one container labeled with the patient's name and designated antrum biopsy. The specimen consists of one irregular fragment of light caicedo soft tissue that measures 0.5 x 0.3 x 0.1 cm. The specimen is totally submitted in one cassette. B - Received in fixative is one container labeled with the patient's name and designated gastric polyp biopsy. The specimen consists of one irregular fragment of light caicedo soft tissue that measures 0.3 x 0.3 x 0.1 cm. The specimen is totally submitted in one cassette. C - Received in fixative is one container labeled with the patient's name and designated GE junction biopsy. The specimen consists of one irregular fragment of light caicedo soft tissue that measures 0.3 x 0.2 x 0.1 cm. The specimen is totally submitted in one cassette. / AM:jos 07/04/20 TC:3 CPT: 13754 x3, 97463
[2020-07-03 08:06] LABS: Bedside Glucose 189 mg/dL (70-110)
[2020-07-03 08:29] VITALS: BP 146/79; BP 149/104; PULSE 70; RESP 16; TEMP 36.5; O2SAT 95
[2020-07-03 08:35] VITALS: BP 141/93; BP 146/79; PULSE 68; RESP 16; O2SAT 96
[2020-07-03 08:40] VITALS: BP 146/79; BP 151/91; PULSE 68; RESP 16; O2SAT 95
[2020-07-03 08:45] VITALS: BP 135/92; BP 146/79; PULSE 68; RESP 16; TEMP 36.6; O2SAT 98
[2020-07-03 09:05] VITALS: BP 146/79
--- NOTE | 2020-07-03 09:36 | OP.EGD_ITS ---
Patient Name: Hermelinda López Procedure Date: 07/03/2020 7:30 AM Date of : 1950 Age: 69 Procedure: Upper GI endoscopy Indications: Screening procedure, Hereditary nonpolyposis colorectal cancer (Pickens Syndrome) Providers: Isabel Santo MD Referring MD: Irving Knapp Medicines: Monitored Anesthesia Care Patient Profile: This is a 69 year old female. Complications: No immediate complications. Procedure: Pre-Anesthesia Assessment: - Prior to the procedure, a History and Physical was performed, and patient medications and allergies were reviewed. The patient's tolerance of previous anesthesia was also reviewed. The risks and benefits of the procedure and the sedation options and risks were discussed with the patient. All questions were answered, and informed consent was obtained. Prior Anticoagulants: The patient has taken no previous anticoagulant or antiplatelet agents. ASA Grade Assessment: Per anesthesia. After reviewing the risks and benefits, the patient was deemed in satisfactory condition to undergo the procedure. After obtaining informed consent, the endoscope was passed under direct vision. Throughout the procedure, the patient's blood pressure, pulse, and oxygen saturations were monitored continuously. The gastroscope was introduced through the mouth, and advanced to the second part of duodenum. The upper GI endoscopy was accomplished without difficulty. The patient tolerated the procedure well. Scope In: 8:08:53 AM Scope Out: 8:16:25 AM Total Procedure Duration Time 0 hours 7 minutes 32 seconds Findings: The Z-line was variable. Biopsies were taken with a cold forceps for histology. A few less than 5 mm sessile polyps with no bleeding and no stigmata of recent bleeding were found in the gastric body. The polyp was removed with a cold biopsy forceps. Resection and retrieval were complete. Striped mildly erythematous mucosa without bleeding was found in the gastric antrum. Biopsies were taken with a cold forceps for histology. Biopsies were taken with a cold forceps for Helicobacter pylori cultures. The examined duodenum was normal. The cardia and gastric fundus were normal on retroflexion. Impression: - Z-line variable. Biopsied. - A few gastric polyps. Resected and retrieved. - Erythematous mucosa in the antrum. Biopsied. - Normal examined duodenum. Recommendation: - Await pathology results. - Discharge patient to home. - Resume previous diet. - Continue present medications. - Repeat upper endoscopy in 2 years for screening purposes. Procedure Code(s): --- Professional --- 65544, PT, Esophagogastroduodenoscopy, flexible, transoral; with biopsy, single or multiple Diagnosis Code(s): --- Professional --- K22.8, Other specified diseases of esophagus K31.7, Polyp of stomach and duodenum K31.89, Other diseases of stomach and duodenum Z13.810, Encounter for screening for upper gastrointestinal disorder C18.9, Malignant neoplasm of colon, unspecified Z15.09, Genetic susceptibility to other malignant neoplasm CPT copyright 2017 [employer]. All rights reserved. The codes documented in this report are preliminary and upon director sales and trade marketing review may be revised to meet current compliance requirements. MD Isabel See MD 07/03/2020 8:37:51 AM This report has been signed electronically. Number of Addenda: 0 Note Initiated On: 07/03/2020 7:30 AM
--- NOTE | 2020-07-03 09:36 | OP.CCLET_ITS ---
07/03/2020 Irving Knapp Re : Upper GI endoscopy procedure for Hermelinda López Dear Ra This procedure was performed on Friday, July 03, 2020. My impressions and recommendations are as follows: Impressions : - Z-line variable. Biopsied. - A few gastric polyps. Resected and retrieved. - Erythematous mucosa in the antrum. Biopsied. - Normal examined duodenum. Recommendations : - Await pathology results. - Discharge patient to home. - Resume previous diet. - Continue present medications. - Repeat upper endoscopy in 2 years for screening purposes. My findings are described in the full procedure note, which is enclosed. If I can be of further assistance, please feel free to contact me at Doctor phone number(s): , Work: . Sincerely, MD Isabel See MD 07/03/2020 8:37:51 AM This report has been signed electronically.
--- NOTE | 2020-07-03 09:37 | OP.COLON_ITS ---
Patient Name: Hermelinda López Procedure Date: 07/03/2020 8:16 AM Date of : 1950 Age: 69 Procedure: Colonoscopy Indications: High risk colon cancer surveillance: Personal history of colon cancer, High risk colon cancer surveillance: Personal history of hereditary nonpolyposis colorectal cancer (Pickens Syndrome) Providers: Isabel Santo MD Referring MD: Irving Knapp Medicines: Monitored Anesthesia Care Patient Profile: This is a 69 year old female. Last Colonoscopy: June 2018. Complications: No immediate complications. Procedure: Pre-Anesthesia Assessment: - Prior to the procedure, a History and Physical was performed, and patient medications and allergies were reviewed. The patient's tolerance of previous anesthesia was also reviewed. The risks and benefits of the procedure and the sedation options and risks were discussed with the patient. All questions were answered, and informed consent was obtained. Prior Anticoagulants: The patient has taken no previous anticoagulant or antiplatelet agents. ASA Grade Assessment: Per anesthesia. After reviewing the risks and benefits, the patient was deemed in satisfactory condition to undergo the procedure. After I obtained informed consent, the scope was passed under direct vision. Throughout the procedure, the patient's blood pressure, pulse, and oxygen saturations were monitored continuously. The pediatric colonoscope was introduced through the anus and advanced to the ileocolonic anastomosis. The colonoscopy was performed without difficulty. The patient tolerated the procedure well. The quality of the bowel preparation was good. Scope In: 8:18:37 AM Scope Out: 8:24:29 AM Total Procedure Duration Time 0 hours 5 minutes 52 seconds Findings: Hemorrhoids were found on perianal exam. The exam was otherwise without abnormality. Non-bleeding internal hemorrhoids were found. The hemorrhoids were Grade I (internal hemorrhoids that do not prolapse). Impression: - Hemorrhoids found on perianal exam. - The examination was otherwise normal. - Non-bleeding internal hemorrhoids. - No specimens collected. Recommendation: - Repeat colonoscopy in 2 years for screening purposes. - Continue present medications. Procedure Code(s): --- Professional --- G0105, PT, Colorectal cancer screening; colonoscopy on individual at high risk Diagnosis Code(s): --- Professional --- Z85.038, Personal history of other malignant neoplasm of large intestine Z15.09, Genetic susceptibility to other malignant neoplasm K64.0, First degree hemorrhoids CPT copyright 2017 [employer]. All rights reserved. The codes documented in this report are preliminary and upon supervisor pigment making review may be revised to meet current compliance requirements. MD Isabel See MD 07/03/2020 8:42:13 AM This report has been signed electronically. Number of Addenda: 0 Note Initiated On: 07/03/2020 8:16 AM
--- NOTE | 2020-07-03 09:37 | OP.CCLET_ITS ---
07/03/2020 Irving Knapp Re : Colonoscopy procedure for Hermelinda López Dear Ra This procedure was performed on Friday, July 03, 2020. My impressions and recommendations are as follows: Impressions : - Hemorrhoids found on perianal exam. - The examination was otherwise normal. - Non-bleeding internal hemorrhoids. - No specimens collected. Recommendations : - Repeat colonoscopy in 2 years for screening purposes. - Continue present medications. My findings are described in the full procedure note, which is enclosed. If I can be of further assistance, please feel free to contact me at Doctor phone number(s): , Work: . Sincerely, MD Isabel See MD 07/03/2020 8:42:13 AM This report has been signed electronically.
== END 2020-07-03 09:15 | disposition home or self-care (01) ==
LOC: EN 06:40 → AC 06:41
PROVIDERS: PCP Family Medicine; Referring Provider Family Medicine; Visit Provider Surgery
PROC: 0DJD8ZZ Inspection of Lower Intestinal Tract, Via Natural or Artificial Opening Endoscopic (ICD-10-PCS; CPT 45378; principal; 2020-07-03 07:55)
DX: Z12.11 Encounter for screening for malignant neoplasm of colon (principal); K64.0 First degree hemorrhoids; K22.8 Other specified diseases of esophagus; K31.7 Polyp of stomach and duodenum; K31.89 Other diseases of stomach and duodenum; E78.5 Hyperlipidemia, unspecified; I10 Essential (primary) hypertension; E11.9 Type 2 diabetes mellitus without complications; E03.9 Hypothyroidism, unspecified; Z80.0 Family history of malignant neoplasm of digestive organs; Z20.828 Contact with and (suspected) exposure to other viral communicable diseases; Z79.899 Other long term (current) drug therapy; Z79.84 Long term (current) use of oral hypoglycemic drugs; Z85.038 Personal history of other malignant neoplasm of large intestine; Z85.42 Personal history of malignant neoplasm of other parts of uterus; Z85.820 Personal history of malignant melanoma of skin; Z85.3 Personal history of malignant neoplasm of breast; Z15.09 Genetic susceptibility to other malignant neoplasm
CPT/HCPCS: 43239; G0105; 82962; 87426; 88305; 88313; 88342; J7120

== ENCOUNTER → 2020-08-13 10:50 | Outpatient (CLI) | payer MEDICARE, SELFPAY ==
[2020-02-19 12:53] VITALS: BMI 44.9
--- NOTE | 2020-08-13 10:52 | BI_ITS ---
MAMMOGRAPHY - BILATERAL SCREENING REASON FOR EXAM: Female, 69 years old. Routine annual screening examination. PERTINENT HISTORY: AM HX OF MATERNAL GRANDMOTHER @ AGE 40 - NO PREV SURG''S - HX OF UTERINE 2001 Tamp; COLON CANCER 2013 - MELANOMA OF THE ARM 07/2017 TECHNIQUE: Digital bilateral breast latasha (3D mammographic acquisition) in the CC and MLO projections. 2-D mediolateral oblique (MLO) and craniocaudad (CC) views of both breasts were obtained. CAD: Full Field Digital Mammography with Computer Added Detection was performed. COMPARISON: 08/07/2019 and 08/01/2018 FINDINGS: Breast Composition: The breasts are almost entirely fatty. There are no dominant masses or suspicious calcifications. No other significant abnormalities are identified. BI/SCREEN MAMM (CAD) W/LATASHA BILAT IMPRESSION: Stable bilateral screening mammogram. Yearly follow-up mammogram recommended. (A) ASSESSMENT CATEGORY: BIRADS Category 2: Benign. A letter regarding these results will be sent to the patient by the facility within 30 days. Approximately 10% of breast cancers are not detected by mammography. A normal mammogram should not delay biopsy of a clinically suspicious abnormality. [id number] Electronically Signed: Alan Scott, at 15:22 EST Tel , Service support ,
== END ==
PROVIDERS: PCP Family Medicine; Referring Provider Internal Medicine Hematology & Oncology; Visit Provider Internal Medicine Hematology & Oncology
DX: Z12.31 Encounter for screening mammogram for malignant neoplasm of breast (principal); C18.7 Malignant neoplasm of sigmoid colon
CPT/HCPCS: 77063; 77067

== ENCOUNTER → 2021-08-14 10:32 | Outpatient (CLI) | payer MEDICARE, SELFPAY ==
[2021-02-24 13:37] VITALS: BMI 45.8
--- NOTE | 2021-08-14 10:34 | BI_ITS ---
MAMMOGRAPHY - BILATERAL SCREENING 3-D TOMOSYNTHESIS REASON FOR EXAM: Female, 70 years old. ANNUAL SCREENING PERTINENT HISTORY: No significant family history. TECHNIQUE: 2-D mammograms and 3-D Tomosynthesis of the breast (s) were performed. CAD was performed. COMPARISON: 08/13/2020 FINDINGS: The breast composition is composed of scattered fibroglandular density. Scattered benign calcifications are seen. No dense spiculated masses or suspicious microcalcifications are identified. No architectural distortion is identified. There is no skin thickening or retraction. There has been no significant change since the prior study. BI/SCRN MAMM (CAD)W/LATASHA BILAT IMPRESSION: No mammographic signs of malignancy. Routine yearly mammograms recommended. ASSESSMENT CATEGORY: BIRADS Category 1: Negative. A letter regarding these results will be sent to the patient by the facility within 30 days. FOLLOW UP RECOMMENDATION: Yearly follow up mammogram recommended. (A) Approximately 10% of breast cancers are not detected by mammography. A normal mammogram should not delay biopsy of a clinically suspicious abnormality. Electronically Signed: Cong Adams MD at 11:28 EST Tel , Service support ,
== END ==
PROVIDERS: PCP Family Medicine; Visit Provider Internal Medicine Hematology & Oncology
DX: Z12.31 Encounter for screening mammogram for malignant neoplasm of breast (principal); C18.7 Malignant neoplasm of sigmoid colon; C55 Malignant neoplasm of uterus, part unspecified
CPT/HCPCS: 77063; 77067

== ENCOUNTER 2021-08-25 14:51 | Outpatient (CLI) | payer MEDICARE, SELFPAY ==
--- NOTE | 2021-08-25 14:52 | VDLE_ITS ---
Reason For Study: SWELLING/ RT POP MASS RIGHT LEFT GSV is normal. CFV is compressible, spontaneous, phasic, CFV is compressible, spontaneous, phasic, competent, and demonstrates normal competent and demonstrates normal augmentation. augmentation. FV is compressible, spontaneous, phasic, competent and demonstrates normal augmentation. POP V is compressible, spontaneous, phasic, competent and demonstrates normal augmentation. T/P Trunk is compressible. PTV is compressible. RT PerV is compressible. There is an unvascularized, hyperechoic structure noted in the Pop Space measuring .94 x 1.01cm. Procedure Exam performed in department. This is a venous duplex using B-mode, color flow and spectral Doppler. A preliminary report was called and/or faxed to [facility]ELAS[facility]. VL/Venous Duplex US, Unilateral Interpretation Summary There is no evidence of right lower extremity deep vein thrombosis. Right great saphenous vein appears patent and compressible segmentally. Right popliteal space hyper echoic structure measuring at least 0.94 x 1.01 cm. Vascular flow was not identified. Etiology is not dete rmined and clinical correlation or additional imaging would be appropriate. Normal flow patterns left common femoral vein Ordering Physician: Leni Velasquez Referring Physician: CAIN LEE Performed By: Vidhya Howell, ABRAM, RVT
--- NOTE | 2021-08-25 15:20 | RAD_ITS ---
EXAM: XR RIGHT KNEE COMPLETE, 4 OR MORE VIEWS : 1950 CLINICAL INDICATION: popliteal mass -- popliteal fossa TECHNIQUE: Four or more views of the right knee. This report was created using [employer] [place] technology. COMPARISON: None. FINDINGS: BONES/JOINTS: Moderate tricompartmental degenerative changes. No acute fracture. No subluxation. Normal alignment. No sclerotic or destructive changes observed. SOFT TISSUES: No soft tissue mass is appreciated by plain film. No soft tissue swelling or gas. No radiopaque foreign body. RAD/Knee 4 or More Views IMPRESSION: No acute findings. Moderate tricompartmental degenerative changes. at 0319 Reported and signed by: Kal Siegel MD Electronically Signed: Kal Siegel MD at 3:18 EST Tel , Service support ,
== END 2021-08-25 23:59 | disposition short-term general hospital (02) ==
PROVIDERS: PCP Family Medicine; Visit Provider Nurse Practitioner Family
DX: R22.41 Localized swelling, mass and lump, right lower limb (principal); M17.11 Unilateral primary osteoarthritis, right knee
CPT/HCPCS: 73564; 93971

== ENCOUNTER 2021-09-04 13:48 | Outpatient (CLI) | payer MEDICARE, SELFPAY ==
--- NOTE | 2021-09-04 13:53 | CT_ITS ---
STUDY: CT RIGHT KNEE WITHOUT CONTRAST REASON FOR EXAM: Female, 70 years old. Right knee mass. RADIATION DOSAGE (If Supplied By Facility): CTDIvol = ( 15.35 ) mGy, DLP = ( 549.49 ) mGycm TECHNIQUE: The patient was scanned in a multi detector CT scanner. Transaxial imaging was performed without intravenous contrast administration. Sagittal and coronal images were reconstructed. Individualized dose optimization techniques were used for this CT. COMPARISON: None. FINDINGS: Degenerative spur formation along the distal medial femoral condyle as well as the medial tibial plateau. Moderate degree of narrowing of the medial compartment of the knee joint. Degenerative spur formation along the lateral femoral condyle and lateral tibial plateau. There is preservation of the articular joint space of the lateral knee compartment. Moderate degree of osteoarthritis of the patellofemoral joint with spur formation. Normal proximal tibiofibular articulation. There is no joint effusion. There is no demonstrated abnormal enhancement. The quadriceps tendon is grossly normal. The patellar tendon is grossly normal. Normal Hoffa''s fat pad. The soft tissues are unremarkable. CT/Extremity Lower WITH Contrast IMPRESSION: Degenerative changes as described. No mass lesion is seen. Electronically Signed: Howie De Paz MD at 15:00 EST , Service support ,
[2021-09-04 14:40] LABS: CREATININE FINGERSTICK 0.9 mg/dL (0.55-1.02); EGFR FINGERSTICK > 60.0000 mL/min (>60)
== END 2021-09-04 23:59 | disposition short-term general hospital (02) ==
LOC: CT 13:51
PROVIDERS: PCP Family Medicine; Referring Provider Nurse Practitioner Family; Visit Provider Nurse Practitioner Family
DX: R22.41 Localized swelling, mass and lump, right lower limb (principal)
CPT/HCPCS: 73701; Q9967; A4216

== ENCOUNTER 2022-07-06 05:55 | Day surgery (SDC) | payer MEDICARE, SELFPAY ==
[2022-07-06 06:47] VITALS: BP 171/97; PULSE 119; RESP 16; TEMP 36.6; O2SAT 95; BMI 42.6
[2022-07-06] MEDS: Lactated Ringers 1,000 ML 15 ML IV (06:55)
--- NOTE | 2022-07-06 06:55 | EKG12_ITS ---
Test Reason : PRE OP Blood Pressure : / mmHG Vent. Rate : 111 BPM Atrial Rate : 111 BPM P-R Int : 156 ms QRS Dur : 088 ms QT Int : 330 ms P-R-T Axes : 037 040 026 degrees QTc Int : 448 ms Sinus tachycardia Otherwise normal ECG When compared with ECG of 09-JAN-2011 08:37, Vent. rate has increased BY 50 BPM Confirmed by PEDRO FOSTER, KI ([id number]), editor magazine ZECHARIAH MARINELLI ([id number]) on 07/10/2022 11:13:03 AM Referred By: Noah Brambila Confirmed By:KI VASQUEZ MD
--- NOTE | 2022-07-06 07:16 | PCM.HP.BLA ---
History and Physical Date of Admission: 07/06/22 Date of Service:? 04/21/22 MR#: [id number] Acct: [id number] Name:AUGUSTIN TAMAYO Rep #: [id number] : 1950 ? ? Provider: Dr. Isabel Santo MD Age/Sex:? 71/F ? ? Location: [facility] Status: Signed Intake Vital Signs ? 04/21/2209:12 Height 5 ft 2 in Weight: 238 lb 4 oz BMI 43.5 BP 128/83 H Blood Pressure Location Rt brachial Position Sitting Respiration 18 Pulse 87 Pulse Source NIBP Temp 97 F L Temp Source Temporal Pulse Oximetry (%) 97 Oxygen Delivery Method room air Intake Visit Reasons:?EGD/CSCOPE Chief Complaint: discuss EGD/ c-scope Senior Director Marketing Required: No Is patient in pain?: No Allergies rofecoxib [From Vioxx] Allergy (Intermediate, Verified 04/21/22 09:13) Unknown Medications atorvastatin 10 mg tablet 40 mg PO DAILY 02/26/14 [History Confirmed 04/21/22] calcium carbonate 600 mg-vitamin D3 10 mcg (400 unit) tablet 2 ea PO DAILY 02/26/14 [History Confirmed 04/21/22] multivitamin,zz-myjx-klkweonb 27 mg-0.4 mg tablet 1 tab PO DAILY 02/26/14 [History Confirmed 04/21/22] furosemide 20 mg tablet 20 mg PO DAILY 05/13/17 [History Confirmed 04/21/22] cholecalciferol (vitamin D3) 125 mcg (5,000 unit) capsule 5,000 unit PO DAILY 05/19/18 [History Confirmed 04/21/22] cyanocobalamin (vitamin B-12) 500 mcg tablet 500 mcg PO DAILY@0800 05/19/18 [History Confirmed 04/21/22] methimazole 5 mg tablet 2.5 mg PO DAILY hyperthyroid 05/19/18 [History Confirmed 04/21/22] nystatin 100,000 unit/gram topical powder 1 dose topical PRN PRN Rash/Topical Irritation 02/26/20 [History Confirmed 04/21/22] cyclosporine 0.09 % eye drops in a dropperette (Cequa) 1 drp ophthalmic (eye) Q12H 08/25/21 [History Confirmed 04/21/22] triamcinolone acetonide 0.1 % topical cream 1 applic topical DAILY 08/25/21 [History Confirmed 04/21/22] dulaglutide 1.5 mg/0.5 mL subcutaneous pen injector (Trulicity) 1.5 mg subcut QWEEK 02/23/22 [History Confirmed 04/21/22] irbesartan 150 mg tablet ea PO 04/21/22 [History Confirmed 04/21/22] Is last menstrual period known: No Post menopausal: Yes Patient : No PFSH Medical History? Cancer of sigmoid colon Cancer of transverse colon Foot fracture, right Hyperlipidemia Hypertension Iliac node removal Pickens syndrome Mass of right knee Melanoma Uterine cancer Surgical History? History of appendectomy History of colectomy History of hysterectomy History of tonsillectomy History of tubal ligation Family History? Son Colon cancer ?? ? oldest and youngest sons had colon cancerFather Heart diseaseGrandmother Breast cancerBrother Colon cancer Multiple sclerosis PacemakerSister?? NHL (non-Hodgkin's lymphoma) Social History? Smoking Status:? Never smoker second hand exposure:? No alcohol intake:? never substance use type:? does not use caffeine:? Yes reginald/zoroastrianism:? Nazarene seatbelt use:? always do you feel safe at home:? Yes HPI HPI HPI: 71-year-old female presents for screening EGD and colonoscopy due to Pickens syndrome.? Patient is deaf but is able to communicate very well by reading lips.? 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 Patient states her diarrhea has improved quite a bit from previous due to coming off the metformin as she only has diarrhea or loose stools maybe once or twice a day versus the previous 11.? Patient denies any chronic abdominal pain/nausea/vomiting/reflux. ROS General General: Yes colon cancer; No fatigue HEENT HEENT: No difficulty swallowing Resp Respiratory: No shortness of breath Gastro Gastrointestinal: No abdominal pain, No nausea or vomiting, Yes diarrhea (Improved after coming off metformin), No blood in stool and No acid reflux Exam Const General: cooperative, healthy appearing and comfortable Orientation: oriented x3 HENMT Ears: hearing grossly impaired bilaterally (Patient is deaf but reads lips very well) Resp Effort & Inspection: normal respiratory effort Cardio Rate: regular rate GI Inspection: non-distended Palpation: soft and nontender COVID (Procedure Consent) Procedure Criteria Procedure Criteria: Yes Elective The surgeon/proceduralist and patient have discussed in detail the risk of exposure to and/or potential harm posed by the COVID-19 virus with having a surgery/procedure at this time versus the risk of? delaying the surgery/procedure. It is not possible to know either the risk of delaying the surgery or procedure or chance of getting an infection with perfect accuracy, but a joint decision was made between the patient and the surgeon/proceduralist ?to proceed at this time with the scheduled surgery/procedure as indicated on the consent form. Assessment and Plan Assessment and Plan (1) Pickens syndrome: ?Status:?Chronic ? ? ? Orders: Orders Colonoscopy 04/21/22 ? ? EGD 04/21/22 ? ? Plan I have discussed the above with the patient. I have offered the patient EGD and proctoscopy (as patient has not ileorectal anastomosis status post total colectomy) for evaluation. I have explained the risks/benefits of the procedure and described the procedure.? I have discussed the risks with the patient, including but not limited to:? infection, bleeding, perforation of the GI tract requiring emergency surgery, inability to complete the procedure, injury to any internal organs, complications of anesthesia, etc. - the patient understands and agrees to proceed. I have answered all the patient's questions to the patient's satisfaction and the patient has no further questions. The patient has been given instructions for the colon cleansing preparation. ? Patient unable to do the enemas prefers to use the MiraLAX Dulcolax split prep only used 2 Dulcolax tabs 1 day of clears. Isabel Santo M.D. Pager: [phone] [facility] [address] [place] [address], [address] [place] [address] Office: [phone] Coding Level of Care Code Off vis,est,level 3 Diagnoses Pickens syndrome? Z15.09 04/22/22 1513 <Electronically signed by Isabel Santo MD> Date Isabel Santo MD
[2022-07-06 07:20] LABS: Bedside Glucose 202 mg/dL (74-106)
--- NOTE | 2022-07-06 07:30 | IMM_PTH ---
PATIENT: AUGUSTIN NELSON LOC: EN U#:[id number] AGE/SX: 71/F ROOM: RE07/06/[address]: Dr. Isabel Santo MD : 1950 BED: DIS: 07/06/2022 SPEC #: [id number] RECD: 07/06/22 13:42 STATUS: BASILIO REQ #: [id number] FILIPPO: 07/06/22 07:[address]: Isabel Santo DEPT: IMMUNOHISTOCHEMISTRY RECD BY: Jaelyn Bautista ENTERED: 07/06/22 13:43 SP TYPE: IMMUNO OTHR DR: Dr. Noah Brambila, DO Tissues: A - Stomach, NOS Procedures: H Pylori (initial) PHYSICIAN & INSTITUTION [place] [id number] SPECIMEN INFORMATION: Tissue Source: A ? Antrum biopsy Clinical Info: Pickens syndrome Specimen Number: [id number] CPT code: 49949 METHODOLOGY: Deparaffinized sections of prefer/formalin-fixed tissue or PAP/DQ stained slides are incubated with monoclonal/polyclonal antibodies/oligonucleotide probes. Localization is made via biotin free immunoperoxidase method. Appropriate controls are performed and reacted as expected. Results on target cell population are indicated in the following table: RESULTS: ANTIBODY / CLONE RESULT Block A H Pylori (polyclonal) negative These tests were developed and their performance characteristics determined by [facility]. They may not have been cleared or approved by the U.S. Food and Drug Administration. The FDA has determined that such clearance or approval is not necessary. The above immunohistochemical/dualISH markers are ordered and reviewed by the Pathologist. INTERPRETATION: Antrum, biopsy: Negative for Helicobacter pylori organisms. AM:jos 07/07/2022
--- NOTE | 2022-07-06 07:30 | EGD_PTH ---
PATIENT: AUGUSTIN NELSON LOC: EN U#:[id number] AGE/SX: 71/F ROOM: RE07/06/[address]: Dr. Isabel Santo MD : 1950 BED: DIS: 07/06/2022 SPEC #: [id number] RECD: 07/06/22 10:49 STATUS: BASILIO ZEKE #: [id number] FILIPPO: 07/06/22 07:[address]: Isabel Santo DEPT: SURGICAL PATHOLOGY RECD BY: Karla Brennan ENTERED: 07/06/22 11:45 SP TYPE: EGD BIOPSY OT DR: Dr. Noah Brambila, DO Tissues: A - Gastric mucous membrane B - Gastric mucous membrane C - Stomach, NOS D - Rectum, NOS E - Rectum, NOS F - Rectum, NOS Procedures: Special Stain Group II Surgery Specimen Level IV Alcian Blue/PAS (control) HEADER OPERATION: Colonoscopy, EGD (MAC), biopsy, polypectomy PRE-OP DIAGNOSIS: Pickens syndrome TISSUE SUBMITTED: A ? Antrum biopsy for histo and H. pylori, B ? Gastric polyp biopsy, C ? Gastroesophageal junction biopsy, D ? Ileorectal polyp x2, E ? Rectal polyp 1 cm, F ? Rectal polyp base biopsies MICROSCOPIC DIAGNOSIS A. Gastric antrum, biopsy: Mild chronic gastritis. See comment. B. Gastric polyp, biopsy: Fundic gland polyp. C. Gastroesophageal junction, biopsy: Chronic inflammation. No evidence of goblet cell metaplasia. See comment. D. Ileorectal polyp, biopsy: Fragments of hyperplastic polyp with focal adenomatous change. E. Rectal polyp, biopsy: Tubular adenoma. F. Rectal polyp base, biopsy: Fragments of colonic mucosa with hyperplastic change. AM:jos 07/07/2022 COMMENT A. The results of immunohistochemistry for Helicobacter pylori will be reported separately ([id number]). C. Alcian blue/PAS stain with matched control supports the above diagnosis. MICROSCOPIC DESCRIPTION Slides are reviewed. GROSS DESCRIPTION A - Received in fixative is one container labeled with the patient's name and designated antrum biopsy. The specimen consists of one irregular fragment of light caicedo soft tissue that measures 0.3 x 0.3 x 0.1 cm. The specimen is totally submitted in one cassette. B - Received in fixative is one container labeled with the patient's name and designated gastric polyp biopsy. The specimen consists of one irregular fragment of light caicedo soft tissue that measures 0.4 x 0.4 x 0.1 cm. The specimen is totally submitted in one cassette. C - Received in fixative is one container labeled with the patient's name and designated GE junction biopsy. The specimen consists of two irregular fragments of light caicedo soft tissue that in aggregate measure 0.5 x 0.2 x 0.1 cm. The specimen is totally submitted in one cassette. D - Received in fixative is one container labeled with the patient's name and designated ileorectal polyp. The specimen consists of multiple irregular fragments of light caicedo soft tissue that in aggregate measure 1 x 0.5 x 0.1 cm. The specimen is totally submitted in one cassette. E - Received in fixative is one container labeled with the patient's name and designated rectal polyp. The specimen consists of a pink-red polyp measuring 1 x 1.2 x 1 cm. The apparent base is inked. The polyp is serially sectioned and submitted entirely in one cassette. F - Received in fixative is one container labeled with the patient's name and designated rectal polyp base biopsy. The specimen consists of multiple irregular fragments of light caicedo soft tissue that in aggregate measure 1.2 x 0.5 x 0.1 cm. The specimen is totally submitted in one cassette. / SJ:rg 07/06/2022 TC:1 CPT: 22405 x6, 72148
[2022-07-06 08:18] VITALS: BP 171/97; BP 98/82; PULSE 96; RESP 18; TEMP 36.4; O2SAT 95
[2022-07-06 08:20] VITALS: BP 122/88; BP 171/97; PULSE 96; RESP 18; O2SAT 93
--- NOTE | 2022-07-06 08:21 | OP.EGD_ITS ---
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 Complications: No immediate complications. Procedure: Pre-Anesthesia Assessment: - Prior to the procedure, a History and Physical was performed, and patient medications and allergies were reviewed. The patient's tolerance of previous anesthesia was also reviewed. The risks and benefits of the procedure and the sedation options and risks were discussed with the patient. All questions were answered, and informed consent was obtained. Prior Anticoagulants: The patient has taken no previous anticoagulant or antiplatelet agents. ASA Grade Assessment: Per anesthesia. After reviewing the risks and benefits, the patient was deemed in satisfactory condition to undergo the procedure. After obtaining informed consent, the endoscope was passed under direct vision. Throughout the procedure, the patient's blood pressure, pulse, and oxygen saturations were monitored continuously. The colonoscope was introduced through the mouth, and advanced to the second part of duodenum. The upper GI endoscopy was accomplished without difficulty. The patient tolerated the procedure well. Scope In: 7:32:35 AM Scope Out: 7:39:25 AM Total Procedure Duration Time 0 hours 6 minutes 50 seconds Findings: The Z-line was irregular and was found 37 cm from the incisors. Biopsies were taken with a cold forceps for histology. Mildly erythematous mucosa without bleeding was found in the gastric antrum. Biopsies were taken with a cold forceps for histology. Biopsies were taken with a cold forceps for Helicobacter pylori testing. The examined duodenum was normal. The cardia and gastric fundus were normal on retroflexion. A few less than 5 mm semi-sessile polyps with no bleeding and no stigmata of recent bleeding were found in the gastric body. The polyp was removed with a cold biopsy forceps. Resection and retrieval were complete. Impression: - Z-line irregular, 37 cm from the incisors. Biopsied. - Erythematous mucosa in the antrum. Biopsied. - Normal examined duodenum. - A few gastric polyps. Resected and retrieved. Recommendation: - Await pathology results. - Repeat upper endoscopy in 2 years for screening purposes. - Continue present medications. Procedure Code(s): --- Professional --- 11194, PT, Esophagogastroduodenoscopy, flexible, transoral; with biopsy, single or multiple Diagnosis Code(s): --- Professional --- K22.8, Other specified diseases of esophagus K31.89, Other diseases of stomach and duodenum Z13.810, Encounter for screening for upper gastrointestinal disorder CPT copyright 2017 [employer]. All rights reserved. The codes documented in this report are preliminary and upon icd 9 coder review may be revised to meet current compliance requirements. MD Isabel See MD 07/06/2022 8:20:44 AM This report has been signed electronically. Number of Addenda: 0 Note Initiated On: 07/06/2022 7:20 AM
--- NOTE | 2022-07-06 08:21 | OP.CCLET_ITS ---
07/06/2022 Noah Brambila Do Re : Upper GI endoscopy procedure for Hermelinda López Dear Dr. Brambila This procedure was performed on Wednesday, July 06, 2022. My impressions and recommendations are as follows: Impressions : - Z-line irregular, 37 cm from the incisors. Biopsied. - Erythematous mucosa in the antrum. Biopsied. - Normal examined duodenum. - A few gastric polyps. Resected and retrieved. Recommendations : - Await pathology results. - Repeat upper endoscopy in 2 years for screening purposes. - Continue present medications. My findings are described in the full procedure note, which is enclosed. If I can be of further assistance, please feel free to contact me at Doctor phone number(s): , Work: . Sincerely, MD Isabel See MD 07/06/2022 8:20:44 AM This report has been signed electronically.
--- NOTE | 2022-07-06 08:27 | OP.CCLET_ITS ---
07/06/2022 Noah Brambila Do Re : Colonoscopy procedure for Hermelinda López Dear Dr. Brambila This procedure was performed on Wednesday, July 06, 2022. My impressions and recommendations are as follows: Impressions : - One 4 mm polyp at the anastomosis, removed with a hot snare. Resected and retrieved. - One less than 5 mm polyp at the anastomosis, removed with a cold biopsy forceps. Resected and retrieved. - One 10 mm polyp in the rectum, removed with a hot snare. Resected and retrieved. - Two less than 5 mm polyps in the rectum, removed with a cold biopsy forceps. Resected and retrieved. - The examination was otherwise normal. Recommendations : - Discharge patient to home. - Resume previous diet. - Continue present medications. - Await pathology results. - Repeat colonoscopy 6 month- 1 year for surveillance based on pathology results. My findings are described in the full procedure note, which is enclosed. If I can be of further assistance, please feel free to contact me at Doctor phone number(s): , Work: . Sincerely, MD Isabel See MD 07/06/2022 8:27:05 AM This report has been signed electronically.
--- NOTE | 2022-07-06 08:27 | OP.COLON_ITS ---
Patient Name: Hermelinda López Procedure Date: 07/06/2022 7:41 AM Date of : 1950 Age: 71 Procedure: Colonoscopy Indications: Pickens Syndrome Providers: Isabel Santo MD Referring MD: Noah Brambila Do Medicines: Monitored Anesthesia Care Patient Profile: This is a 71 year old female. Last Colonoscopy: within the past 3 years. Complications: No immediate complications. Procedure: Pre-Anesthesia Assessment: - Prior to the procedure, a History and Physical was performed, and patient medications and allergies were reviewed. The patient's tolerance of previous anesthesia was also reviewed. The risks and benefits of the procedure and the sedation options and risks were discussed with the patient. All questions were answered, and informed consent was obtained. Prior Anticoagulants: The patient has taken no previous anticoagulant or antiplatelet agents. ASA Grade Assessment: Per anesthesia. After reviewing the risks and benefits, the patient was deemed in satisfactory condition to undergo the procedure. After I obtained informed consent, the scope was passed under direct vision. Throughout the procedure, the patient's blood pressure, pulse, and oxygen saturations were monitored continuously. The colonoscope was introduced through the anus and advanced to the ileocolonic anastomosis. The colonoscopy was performed without difficulty. The patient tolerated the procedure well. The quality of the bowel preparation was good. Scope In: 7:41:47 AM Scope Out: 8:09:33 AM Total Procedure Duration Time 0 hours 27 minutes 46 seconds Findings: The perianal and digital rectal examinations were normal. A 4 mm polyp was found in the anastomosis. The polyp was semi-sessile. The polyp was removed with a hot snare. Resection and retrieval were complete. A less than 5 mm polyp was found in the anastomosis. The polyp was sessile. The polyp was removed with a cold biopsy forceps. Resection and retrieval were complete. A 10 mm polyp was found in the rectum. The polyp was pedunculated. The polyp was removed with a hot snare. Resection and retrieval were complete. Two sessile polyps were found in the rectum. The polyps were less than 5 mm in size. These polyps were removed with a cold biopsy forceps. Resection and retrieval were complete. The exam was otherwise without abnormality. Impression: - One 4 mm polyp at the anastomosis, removed with a hot snare. Resected and retrieved. - One less than 5 mm polyp at the anastomosis, removed with a cold biopsy forceps. Resected and retrieved. - One 10 mm polyp in the rectum, removed with a hot snare. Resected and retrieved. - Two less than 5 mm polyps in the rectum, removed with a cold biopsy forceps. Resected and retrieved. - The examination was otherwise normal. Recommendation: - Discharge patient to home. - Resume previous diet. - Continue present medications. - Await pathology results. - Repeat colonoscopy 6 month- 1 year for surveillance based on pathology results. Procedure Code(s): --- Professional --- 71884, PT, Colonoscopy, flexible; with removal of tumor(s), polyp(s), or other lesion(s) by snare technique 15721, 59, Colonoscopy, flexible; with biopsy, single or multiple Diagnosis Code(s): --- Professional --- D12.6, Benign neoplasm of colon, unspecified K62.1, Rectal polyp Z15.09, Genetic susceptibility to other malignant neoplasm CPT copyright 2017 [employer]. All rights reserved. The codes documented in this report are preliminary and upon invoice coder review may be revised to meet current compliance requirements. MD Isabel See MD 07/06/2022 8:27:05 AM This report has been signed electronically. Number of Addenda: 0 Note Initiated On: 07/06/2022 7:41 AM
[2022-07-06 08:30] VITALS: BP 132/85; BP 171/97; PULSE 95; RESP 18; O2SAT 93
[2022-07-06 08:35] VITALS: BP 152/85; BP 171/97; PULSE 90; RESP 18; TEMP 36.4; O2SAT 95
[2022-07-06 08:55] VITALS: BP 171/97
== END 2022-07-06 09:06 | disposition home or self-care (01) ==
LOC: EN 05:57 → AC 06:00
PROVIDERS: Visit Provider Surgery
PROC: 0DJ08ZZ Inspection of Upper Intestinal Tract, Via Natural or Artificial Opening Endoscopic (ICD-10-PCS; CPT 43235; principal; 2022-07-06 07:25)
DX: Z12.11 Encounter for screening for malignant neoplasm of colon (principal); D12.8 Benign neoplasm of rectum; K31.89 Other diseases of stomach and duodenum; K29.50 Unspecified chronic gastritis without bleeding; K31.7 Polyp of stomach and duodenum; E78.5 Hyperlipidemia, unspecified; I10 Essential (primary) hypertension; Z79.899 Other long term (current) drug therapy; Z15.09 Genetic susceptibility to other malignant neoplasm; Z85.038 Personal history of other malignant neoplasm of large intestine
CPT/HCPCS: 45385; 45380; 43239; 82962; 88305; 88313; 88342; 93005; J7120; A4216; J2405

== ENCOUNTER → 2022-08-18 | Outpatient (CLI) | payer MEDICARE, SELFPAY ==
--- NOTE | 2022-08-18 09:41 | BI_ITS ---
MAMMOGRAPHY - BILATERAL SCREENING REASON FOR EXAM: Female, 71 years old. Routine annual screening examination. PERTINENT HISTORY: Grandmother with breast cancer. Past history of uterine carcinoma and colon carcinoma. TECHNIQUE: Digital bilateral breast latasha (3D mammographic acquisition) in the CC and MLO projections. 2-D mediolateral oblique (MLO) and craniocaudad (CC) views of both breasts were obtained. CAD: Full Field Digital Mammography with Computer Added Detection was performed. COMPARISON: Comparison is made with prior study dated 08/14/2021 and 08/13/2020. FINDINGS: Breast Composition: There are scattered areas of fibroglandular density. There are no dominant masses or suspicious calcifications. No other significant abnormalities are identified. There has been no significant change since the prior study. BI/SCRN MAMM (CAD)W/LATASHA BILAT IMPRESSION: Stable bilateral screening mammogram. Yearly follow-up mammogram recommended. (A) ASSESSMENT CATEGORY: BIRADS Category 1: Negative. A letter regarding these results will be sent to the patient by the facility within 30 days. Approximately 10% of breast cancers are not detected by mammography. A normal mammogram should not delay biopsy of a clinically suspicious abnormality. [id number] Electronically Signed: Howie De Paz MD at 12:41 EST ,
== END | disposition home or self-care (01) ==
LOC: OPBI 09:39
PROVIDERS: Visit Provider Internal Medicine Hematology & Oncology
DX: Z12.31 Encounter for screening mammogram for malignant neoplasm of breast (principal)
CPT/HCPCS: 77063; 77067

== ENCOUNTER → 2023-03-01 | Outpatient (CLI) | payer MEDICARE, SELFPAY ==
--- NOTE | 2023-03-01 09:35 | US_ITS ---
Ultrasound right upper quadrant CLINICAL HISTORY: Pain COMPARISON: TECHNIQUE: A limited abdominal sonogram was performed. FINDINGS: Study is limited secondary to overlying bowel gas. Liver: Liver measures 19.1 cm in greatest longitudinal dimension. There is diffuse increased echogenicity in the liver suggestive of fatty infiltration. There is a negative Richards''s sign. Gallbladder: 2 large gallstones are noted measuring 1.9 cm and 3.5 cm in greatest dimension. Common bile duct appears within normal limits. Right kidney: The kidney measures 10.7 x 4.2 x 5.0 cm and appears unremarkable. Limited evaluation of the pancreas appears unremarkable although the pancreatic tail is obscured by bowel gas. US/Abdomen Limited IMPRESSION: Limited study secondary to overlying bowel gas. Gallstones. Hepatomegaly and fatty infiltration of the liver. Electronically Signed: Gilberto Baugh, at 11:02 EDT ,
== END | disposition home or self-care (01) ==
PROVIDERS: Referring Provider Internal Medicine Hematology & Oncology; Visit Provider Internal Medicine Hematology & Oncology
DX: R10.11 Right upper quadrant pain (principal)
CPT/HCPCS: 76705

== ENCOUNTER 2023-07-07 06:56 | Day surgery (SDC) | payer MEDICARE, SELFPAY ==
--- NOTE | 2023-07-06 08:30 | COLBX_PTH ---
PATIENT: AUGUSTIN NELSON LOC: EN U#:[id number] AGE/SX: 72/F ROOM: RE07/07/[address]: Dr. Isabel Santo MD : 1950 BED: DIS: 07/07/2023 SPEC #: [id number] RECD: 07/07/23 12:07 STATUS: BASILIO ZEKE #: [id number] FILIPPO: 07/06/23 08:[address]: Isabel Santo DEPT: SURGICAL PATHOLOGY RECD BY: Geovanna Salas ENTERED: 07/07/23 12:07 SP TYPE: COLON BX OTHR DR: Dr. Noah Brambila, DO Tissues: Rectum, NOS Procedures: Surgery Specimen Level IV HEADER OPERATION: Proctoscopy with polyp biopsy PRE-OP DIAGNOSIS: Pickens syndrome, polyps, total colectomy TISSUE SUBMITTED: Rectal polyp MICROSCOPIC DIAGNOSIS Rectal polyp, biopsy: Tubular adenoma. AM:jos 07/09/2023 MICROSCOPIC DESCRIPTION Slides are reviewed. GROSS DESCRIPTION Received in fixative is one container labeled with the patient's name and designated rectal polyp. The specimen consists of one irregular fragment of light caicedo soft tissue that measures 0.5 x 0.5 x 0.1 cm. The specimen is totally submitted in one cassette. / AM:jos 07/07/2023 TC:5 CPT: 52553
--- NOTE | 2023-07-07 07:20 | H&P.OPEN ---
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 Patient had a colonoscopy 06/2022 had 4-5 polyps?tubular adenoma and hyperplastic polyps- removed at that time. Patient presents for surveillance. Patient denies any chronic abdominal pain nausea or vomiting. Patient denies any blood in her stool. 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 Chronic kidney disease Diabetes Family hx of colon cancer Foot fracture, right High cholesterol History of Kelly's palsy History of renal disease Hyperlipidemia Hypertension Iliac node removal Leg cramps Pickens syndrome Mass of right knee Melanoma Non-smoker Profound hearing loss Restless legs Shortness of breath on exertion Thyroid disease Uterine cancer Wears hearing aid Wears partial dentures Home Medications atorvastatin 10 mg tablet 40 mg PO DAILY 02/26/14 [History Last Taken 06/01/16] calcium carbonate 600 mg-vitamin D3 10 mcg (400 unit) tablet 2 ea PO DAILY 02/26/14 [History Last Taken Unknown] multivitamin,md-gdhv-zliwnxth 27 mg-0.4 mg tablet 1 tab PO DAILY 02/26/14 [History Last Taken Unknown] furosemide 20 mg tablet 20 mg PO DAILY 05/13/17 [History Last Taken Unknown] cholecalciferol (vitamin D3) 125 mcg (5,000 unit) capsule 5,000 unit PO DAILY 05/19/18 [History Last Taken Unknown] cyanocobalamin (vitamin B-12) 500 mcg tablet 500 mcg PO DAILY@0800 05/19/18 [History Last Taken Unknown] methimazole 5 mg tablet 2.5 mg PO DAILY hyperthyroid 05/19/18 [History Last Taken Unknown] cyclosporine 0.09 % eye drops in a dropperette (Cequa) 1 drp ophthalmic (eye) BID 08/25/21 [History Last Taken Unknown] dulaglutide 1.5 mg/0.5 mL subcutaneous pen injector (Trulicity) 3 mg subcut QWEEK 02/23/22 [History Last Taken Unknown] irbesartan 150 mg tablet 1 ea PO DAILY 04/21/22 [History Last Taken Unknown] aspirin 81 mg tablet,delayed release (Adult Low Dose Aspirin) 81 mg PO DAILY 02/22/23 [History Last Taken Unknown] metronidazole 0.75 % topical cream 1 applic topical DAILY 05/20/23 [History Last Taken Unknown] Allergy/AdvReac Type Severity Reaction Status Date / Time rofecoxib [From Vioxx] Allergy Intermediate Dizziness Verified 07/07/23 07:22 Family History (Updated 05/20/23 @ 13:08 by Yuli Smiley) Son Colon cancer, Onset Age: 32 oldest (37) and youngest (32) sons with colon cancer Father Heart disease Grandmother Breast cancer Brother Colon cancer Multiple sclerosis Pacemaker Sister NHL (non-Hodgkin's lymphoma) Surgical History (Updated 07/07/23 @ 07:[address] Isable Santo MD) History of appendectomy History of colectomy History of hysterectomy History of tonsillectomy History of tubal ligation Hx of colonoscopy Social History Smoking Status: Never smoker second hand exposure: No alcohol intake: never substance use type: does not use caffeine: Yes reginald/jehovah's witness: Nazarene seatbelt use: always do you feel safe at home: Yes Past Medical/Surgical History Planned Operation Planned Operative Procedure/s: CSCOPE S.O.S: No Previous Hospitalizations/Surgeries HX Hospitalizations: No HX of Surgeries: LEFT KNEE SURGERY, LEFT TOTAL KNEE 2011 TUBES TIED, TONSILLECTOMY, APPENDECTOMY HYSTERECTOMY, BSO, LYMPH NODE DISSECTION LARGE ILLIAC REMOVED 2008 COLECTOMY 2013/ COLON CA COLONOSCOPY 2016 BIOPSY MOLE MELANOMA/ ARM LEFT, 2017 COLONOSCOPY 04/2017 EGD flex sigmoidoscopy Any Problems With Anesthesia: No You/Your Family Experience Fever (Hyperthermia) With Anes: No Cholinesterase deficiency: No Cardiovascular Hx Chest Pain within Last 2 months: No Hx of Irregular Heartbeat and/or Afib: No Hx Heart Attack: No Hx Congestive Heart Failure: No Hx Rheumatic Fever: No Hx Hypertension: Yes Hx Internal Defibrillator: No Hx Pacemaker: No Hx Cardiac Catheterization: No Hx Cardiac Surgery/Stents/Etc.: No Hx Stress Test: No Hx Pain in Legs when Walking/Leg Cramps: Yes (AT TIMES) Respiratory Chronic Cough: No HX of Shortness of Breath: Yes (SLIGHTLY SOB WITH 2 FLIGHTS STAIRS) Hoarseness: No Hx Chronic Obstructive Pulmonary Disease (COPD): No Hx Asthma: No Hx Emphysema: No Hx Sleep Apnea: No Hx Respiratory Tract Infection/Cold (presently): No Do You Snore Loudly (louder than talking or can be heard): No Do You Often Feel Tired/ Fatigued/ Sleepy Dring Daytime?: No Has Anyone Observed You Stop Breathing During Sleep?: No Result (for STOP score): Negative Hx Smoking: No Smoking Status: Never smoker Gastrointestinal Hx Gastrointestinal Disorders: Yes (COLON CA, COLECTOMY 2013) Hx Gastrointestinal Bleed: No (hx blood with bowel movement) Hx Ulcer: No Hx Hiatal Hernia: No Difficulty Chewing/Swallowing: No Special diet followed at home: No (diabetic) Hx Unplanned Weight Loss of 20#: No (.) HX Unplanned Weight Gain of 20#: No Neurological Hx Seizures: No HX Syncope/Blackout Spells/Unconsciousness: Yes (PASSED OUT 6 YRS AGO, NOT SINCE) Hx Transient Ischemic Attacks (TIA): No Hx Multiple Sclerosis: No Hx Parkinson's Disease: No Hx Head/Neck Injury: No (hx bells palsy, left eye) Hx Headaches: No Hx Back Injury/Pain: Yes (BACK PAIN OCCAS) Recent Onset of Speech Difficulty: No Restless Legs: No Does patient have nerve stimulator: No Blood Disorder Hx Leukemia: No Bleeding Tendencies: Yes (BRUISE EASILY) Hx Deep Vein Thrombosis: No Hx High Cholesterol: Yes (ON MED) Blood Transmitted Disease: No Hx Hepatitis: No Hx Cirrhosis: No Hx Anemia: No Hx Blood Disorders: No Reproduction Is Patient Lactating: No Hx Hysterectomy: Yes Hx Tubal Ligation: Yes Are You Post Menopause: Yes Genitourinary Hx Renal Disease: No Musculoskeletal Hx Arthritis: Yes Hx Rheumatoid Arthritis: No Hx Gout: No Recent Onset of an Orthopedic Problem: No Endocrine Hx Diabetes: Yes (oral med) Insulin: No Thyroid Disease: Yes (MULTINODULAR GOITER PER HX) Hx Steroid Therapy: No Psycho/Social Hx Substance Use: No Hx Alcohol Use: No Hx Anxiety: No Hx Depression: No Mental Illness: No Hx Dementia: No Miscellaneous Hx Cancer: Yes (UTERINE CA, COLON CA, SKIN CA,LYMPH NODE) Recent Exposure to Contagious Disease: No Hx of C-Diff: No Any Loose Teeth: Yes (PARTIAL) Allergies rofecoxib [From Vioxx] Allergy (Intermediate, Verified 07/07/23 07:22) Dizziness DIZZINESS Discharge Is Pt Admitted From a Retirement, or a Skilled Nursing: No After D/C, Where Do you Plan to Go: Return Home From the PAT History Number of Risk Factors: 5 Physical Exam Const alert, oriented x3 and no apparent distress General Appearance: cooperative and comfortable HEENT normocephalic Resp normal respiratory effort Cardio regular rate GI soft to palpation, non-tender and non-distended Assessment & Plan Assessment/Plan (1) H/O rectal polypectomy: (2) Pickens syndrome: Surgery Risks - Colonoscopy I discussed with the patient the risks of the procedure: Yes Risks Include but are not Limited To: Risks include but are not limited to: Bleeding, perforation requiring further surgery, inability to complete colonoscopy requiring barium enema.
[2023-07-07 07:25] VITALS: BP 150/95; PULSE 106; RESP 16; TEMP 36.3; O2SAT 97; BMI 42.0
[2023-07-07] MEDS: Lactated Ringers 1,000 ML 15 ML IV (07:30)
[2023-07-07 08:31] VITALS: BP 132/101; BP 150/95; PULSE 99; RESP 18; TEMP 36.7; O2SAT 95
--- NOTE | 2023-07-07 08:34 | OP.COLON_ITS ---
Patient Name: Hermelinda López Procedure Date: 07/07/2023 8:01 AM Date of : 1950 Age: 72 Procedure: Colonoscopy Indications: High risk colon cancer surveillance: Personal history of colon cancer, Pickens Syndrome Providers: Isabel Santo MD Referring MD: Isabel Santo MD Medicines: Monitored Anesthesia Care Patient Profile: Last Colonoscopy: June 2022. Complications: No immediate complications. Procedure: Pre-Anesthesia Assessment: - Prior to the procedure, a History and Physical was performed, and patient medications and allergies were reviewed. The patient's tolerance of previous anesthesia was also reviewed. The risks and benefits of the procedure and the sedation options and risks were discussed with the patient. All questions were answered, and informed consent was obtained. Prior Anticoagulants: The patient has taken no anticoagulant or antiplatelet agents except for aspirin. ASA Grade Assessment: Per anesthesia. After reviewing the risks and benefits, the patient was deemed in satisfactory condition to undergo the procedure. After I obtained informed consent, the scope was passed under direct vision. Throughout the procedure, the patient's blood pressure, pulse, and oxygen saturations were monitored continuously. The Colonoscope was introduced through the anus and advanced to the rectum for evaluation. This was the intended extent. The colonoscopy was performed without difficulty. The patient tolerated the procedure well. The quality of the bowel preparation was good. Scope In: 8:16:41 AM Scope Out: 8:23:36 AM Total Procedure Duration Time 0 hours 6 minutes 55 seconds Findings: The perianal and digital rectal examinations were normal. A less than 5 mm polyp was found in the rectum. The polyp was sessile. The polyp was removed with a cold biopsy forceps. Resection and retrieval were complete. J pouch widely patent Impression: - One less than 5 mm polyp in the rectum, removed with a cold biopsy forceps. Resected and retrieved. Recommendation: - Discharge patient to home. - Resume previous diet. - Continue present medications. - Await pathology results. - Repeat colonoscopy in 1 year for surveillance based on pathology results. Procedure Code(s): --- Professional --- 54115, 52,PT, Colonoscopy, flexible; with biopsy, single or multiple Diagnosis Code(s): --- Professional --- Z85.038, Personal history of other malignant neoplasm of large intestine D12.8, Benign neoplasm of rectum Z15.09, Genetic susceptibility to other malignant neoplasm CPT copyright 2021 [employer]. All rights reserved. The codes documented in this report are preliminary and upon lithographic proofer apprentice review may be revised to meet current compliance requirements. MD Isabel See MD 07/07/2023 8:34:27 AM This report has been signed electronically. Number of Addenda: 0 Note Initiated On: 07/07/2023 8:01 AM
[2023-07-07 08:35] VITALS: BP 135/83; BP 150/95; PULSE 96; RESP 18; O2SAT 95
--- NOTE | 2023-07-07 08:35 | OP.CCLET_ITS ---
07/07/2023 Noah Brambila, Do Re : Colonoscopy procedure for Hermelinda López Dear Dr. Brambila This procedure was performed on Friday, July 07, 2023. My impressions and recommendations are as follows: Impressions : - One less than 5 mm polyp in the rectum, removed with a cold biopsy forceps. Resected and retrieved. Recommendations : - Discharge patient to home. - Resume previous diet. - Continue present medications. - Await pathology results. - Repeat colonoscopy in 1 year for surveillance based on pathology results. My findings are described in the full procedure note, which is enclosed. If I can be of further assistance, please feel free to contact me at Doctor phone number(s): , Work: . Sincerely, MD Isabel See MD 07/07/2023 8:34:27 AM This report has been signed electronically.
[2023-07-07 08:40] VITALS: BP 129/76; BP 150/95; PULSE 94; RESP 18; O2SAT 98
[2023-07-07 08:44] VITALS: BP 120/80; BP 150/95; PULSE 91; RESP 18; TEMP 36.6; O2SAT 97
[2023-07-07 09:02] VITALS: BP 150/95
[2023-07-07 09:04] LABS: Bedside Glucose 197 mg/dL (74-106)
== END 2023-07-07 09:25 | disposition home or self-care (01) ==
LOC: EN 06:57 → AC 06:59
PROVIDERS: Visit Provider Surgery
PROC: 0DJD8ZZ Inspection of Lower Intestinal Tract, Via Natural or Artificial Opening Endoscopic (ICD-10-PCS; CPT 45378; principal; 2023-07-07 08:25)
DX: Z12.11 Encounter for screening for malignant neoplasm of colon (principal); E11.22 Type 2 diabetes mellitus with diabetic chronic kidney disease; N18.9 Chronic kidney disease, unspecified; E78.00 Pure hypercholesterolemia, unspecified; E03.9 Hypothyroidism, unspecified; I12.9 Hypertensive chronic kidney disease with stage 1 through stage 4 chronic kidney disease, or unspecified chronic kidney disease; Z80.0 Family history of malignant neoplasm of digestive organs; Z90.49 Acquired absence of other specified parts of digestive tract; Z15.09 Genetic susceptibility to other malignant neoplasm; Z86.010 Personal history of colon polyps; Z87.19 Personal history of other diseases of the digestive system; D12.8 Benign neoplasm of rectum; Z79.82 Long term (current) use of aspirin; Z79.899 Other long term (current) drug therapy; Z79.85 Long-term (current) use of injectable non-insulin antidiabetic drugs
CPT/HCPCS: 45380; 82962; 88305; J7120; J2405

== ENCOUNTER → 2023-08-20 | Outpatient (CLI) | payer MEDICARE, SELFPAY ==
--- NOTE | 2023-08-20 10:32 | BI_ITS ---
MAMMOGRAPHY - BILATERAL SCREENING REASON FOR EXAM: Female, 72 years old. Routine annual screening examination. PERTINENT HISTORY: Grandmother with breast cancer. TECHNIQUE: Digital bilateral breast latasha (3D mammographic acquisition) in the CC and MLO projections. 2-D mediolateral oblique (MLO) and craniocaudad (CC) views of both breasts were obtained. CAD: Full Field Digital Mammography with Computer Added Detection was performed. COMPARISON: Comparison is made with prior study dated August 18, 2022 and August 14, 2021. FINDINGS: Breast Composition: The breasts are almost entirely fatty. There are no dominant masses or suspicious calcifications. Stable 3.9 mm well-defined nodule in the axillary region of the left breast suggestive of a small lymph node. No other significant abnormalities are identified. There has been no significant change since the prior study. BI/SCRN MAMM (CAD)W/LATASHA BILAT IMPRESSION: Stable bilateral screening mammogram. Yearly follow-up mammogram recommended. (A) ASSESSMENT CATEGORY: BIRADS Category 2: Benign. A letter regarding these results will be sent to the patient by the facility within 30 days. Approximately 10% of breast cancers are not detected by mammography. A normal mammogram should not delay biopsy of a clinically suspicious abnormality. [id number] Electronically Signed: Howie De Paz MD at 15:20 EST ,
== END | disposition home or self-care (01) ==
LOC: OPBI 10:30
PROVIDERS: Referring Provider Internal Medicine Hematology & Oncology; Visit Provider Internal Medicine Hematology & Oncology
DX: Z12.31 Encounter for screening mammogram for malignant neoplasm of breast (principal)
CPT/HCPCS: 77063; 77067

== ENCOUNTER 2024-05-26 19:57 | Observation (INO) | payer MEDICARE, SELFPAY ==
[2024-05-26 19:58] VITALS: BP 175/111; PULSE 100; RESP 18; TEMP 36.1; O2SAT 97; BMI 39.4
--- NOTE | 2024-05-26 20:35 | CT_ITS ---
STUDY: CT BRAIN WITHOUT CONTRAST REASON FOR EXAM: Female, 73 years old patient with dizziness. RADIATION DOSAGE (If Supplied By Facility): CTDIvol = ( 44.99 ) mGy, DLP = ( 796.11 ) mGycm TECHNIQUE: Transaxial CT imaging of the brain was performed without administration of intravenous contrast material. Individualized dose optimization techniques were used for this CT. COMPARISON: No relevant priors. FINDINGS: Normal soft tissue structures. Normal calvarium. There is mild cerebral atrophy with widening of the extra-axial spaces and ventricular dilatation. There are areas of decreased attenuation within the white matter tracts of the supratentorial brain, consistent with microvascular disease changes. Normal basal ganglia and thalami. Normal brainstem. Normal cerebellum. There is no intracranial hemorrhage. There is mild atherosclerotic calcification of the intracranial arteries. Normal visualized paranasal sinuses. CT/Brain/Head without Contrast IMPRESSION: 1. Chronic involutional changes of the brain. 2. No CT evidence of acute intracranial hemorrhage. Electronically Signed: Angeles Garcia MD at 21:53 EDT ,
--- NOTE | 2024-05-26 20:36 | EDS_ITS ---
HPI History of Present Illness Chief Complaint: Dizziness Detail of Chief Complaint: Dizziness Informant: patient Narrative Narrative: Patient presents to the emergency department with complaint of dizziness x 1 week. Patient states that dizziness is been off-and-on but felt like it was getting worse today. She describes a sensation of just feeling off balance and no vertigo type symptoms. She denies headache. She denies fever or recent illness. She has been eating and drinking normally. She denies nausea or vomiting. She denies abdominal pain. Patient very hard of hearing but does read lips well. Family members also helping give history. She wears a hearing aid in the left ear. She has minimal hearing from the right ear. [facility] Medical History Arthritis Cancer Cancer of sigmoid colon Cancer of transverse colon Chronic kidney disease Diabetes Family hx of colon cancer Foot fracture, right High cholesterol History of Kelyl's palsy History of renal disease Hyperlipidemia Hypertension Iliac node removal Leg cramps Pickens syndrome Mass of right knee Melanoma Non-smoker Profound hearing loss Restless legs Shortness of breath on exertion Thyroid disease Uterine cancer Wears hearing aid Wears partial dentures Home Medications ?Medication ?Instructions ?Recorded ?Last Taken ?Type atorvastatin 10 mg tablet 40 mg PO DAILY 02/26/14 06/01/16 History calcium 600 mg (as 2 ea PO DAILY 02/26/14 Unknown History carbonate)-vitamin D3 10 mcg (400 unit) tablet multivitamin,[id number]-bvio-[id number] 27 1 tab PO DAILY 02/26/14 Unknown History mg-0.4 mg tablet furosemide 20 mg tablet 20 mg PO DAILY 05/13/17 Unknown History cholecalciferol (vitamin D3) 125 5,000 unit PO DAILY 05/19/18 Unknown History mcg (5,000 unit) capsule cyanocobalamin (vitamin B-12) 500 500 mcg PO DAILY@0800 05/19/18 Unknown History mcg tablet methimazole 5 mg tablet 2.5 mg PO DAILY hyperthyroid 05/19/18 Unknown History cyclosporine 0.09 % eye drops in a 1 drp ophthalmic (eye) BID 08/25/21 Unknown History dropperette (Cequa) dulaglutide 1.5 mg/0.5 mL 3 mg subcut QWEEK 02/23/22 Unknown History subcutaneous pen injector (Trulicity) irbesartan 150 mg tablet 1 ea PO DAILY 04/21/22 Unknown History aspirin 81 mg tablet,delayed 81 mg PO DAILY 02/22/23 Unknown History release (Adult Low Dose Aspirin) metronidazole 0.75 % topical cream 1 applic topical DAILY 05/20/23 Unknown History dapagliflozin propanediol 10 mg 10 mg PO DAILY 08/26/23 Unknown History tablet (Farxiga) Allergy/AdvReac Type Severity Reaction Status Date / Time rofecoxib (From Vioxx) Allergy Intermediate Dizziness Verified 05/26/24 19:58 Family History Son Colon cancer, Onset Age: 32 oldest (37) and youngest (32) sons with colon cancer Father Heart disease Grandmother Breast cancer Brother Colon cancer Multiple sclerosis Pacemaker Sister NHL (non-Hodgkin's lymphoma) Surgical History History of appendectomy History of colectomy History of hysterectomy History of tonsillectomy History of tubal ligation Hx of colonoscopy Social History Smoking Status: Never smoker second hand exposure: No alcohol intake: never substance use type: does not use caffeine: Yes reginald/holiness: Nazarene seatbelt use: always do you feel safe at home: Yes ROS ROS ED Review of Systems ROS Unobtainable: other Constitutional Constitutional ED: Reports lethargy; Denies chills, fever(s), sweats or weight loss Eyes Eyes: Denies blurry vision, change in vision or diplopia ENT ENT ED: Denies rhinorrhea or sore throat Cardiovascular Cardiovascular: Denies chest pain, orthopnea or racing heartbeat Respiratory/Chest Respiratory/Chest: Denies cough, dyspnea, dyspnea on exertion, orthopnea or sputum Gastrointestinal Gastrointestinal: Denies abdominal pain, diarrhea, nausea or vomiting Genitourinary Genitourinary ED: Denies dysuria, hematuria or urinary frequency Musculoskeletal Musculoskeletal: Denies arthralgias, back pain, myalgias or neck pain Integumentary Denies abscess, Abrasions or rash Neurologic Neurologic: Reports other Details: Dizziness ; Denies headache(s) or weakness Psychiatric Psychiatric: Denies anxiety, depression or suicidal thoughts Endocrine Endocrinology: Denies polydipsia, polyphagia or polyuria Hematologic/Lymphatic Hematologic/Lymphatic: Denies easy bleeding, easy bruising or lymphadenopathy Allergic/Immunologic Allergic/Immunologic ED: Denies mouth swelling, tongue swelling or urticaria EXAM Physical Exam Const Vital Signs: 05/26/24 19:58 05/26/24 21:35 05/26/24 21:57 Temperature 97 F L Temperature Source Temporal Pulse Rate 100 105 H Pulse Rate [Lying] 101 H Pulse Rate [Sitting (for 1 minute prior to obtaining)] 104 H Pulse Rate [Standing (for 1 minute prior to obtaining)] 114 H Respiratory Rate 18 18 Blood Pressure 175/111 H 146/105 H Blood Pressure [Lying] 148/86 H Blood Pressure [Sitting (for 1 minute prior to obtaining)] 148/82 H Blood Pressure [Standing (for 1 minute prior to obtaining)] 146/102 H Blood Pressure Mean 132 118 Blood Pressure Mean [Lying] 106 Blood Pressure Mean [Sitting (for 1 minute prior to obtaining)] 104 Blood Pressure Mean [Standing (for 1 minute prior to obtaining)] 116 Pulse Ox 97 94 Oxygen Delivery Method Room Air Room Air Positive well nourished and well developed General Appearance ED: well developed and NAD HEENT Reports TM's clear and moist mucous membranes normocephalic and atraumatic; Negative for trauma or tenderness Tympanic Membrane ED: Yes TM's clear Eyes PERRL and EOMs intact bilaterally General Eye ED: Negative for pale conjunctiva or scleral icterus Neck no lymphadenopathy, supple and no JVD General: Negative for tenderness Chest Wall inspection of chest normal and palpation of chest normal Chest: Negative for tenderness Resp normal respiratory effort and clear to auscultation bilaterally Effort and Inspection: Negative for respiratory distress or pain with movement Auscultation: Negative for rhonchi, wheezes or diminished lung sounds Cardio regular rate, regular rhythm, S1 normal heart sound, S2 normal heart sound and no murmurs Peripheral Pulses: pulses 2+ throughout GI normal to inspection, nondistended, normoactive bowel sounds, soft to palpation, non-tender, non-distended and no masses Back/Spine no CVA tenderness and no thoracic nor lumbar tenderness Extremity normal to inspection General Extremety ED: Negative for edema General Extremity: Negative for edema Neuro oriented x3, CN's II-XII intact bilaterally, no sensory deficits noted and gait normal Neuro Narrative: Finger-nose and heel culver testing within normal limits, negative Romberg, negative for drift. Patient had Hallpike maneuver performed and there was no evidence of symptoms or nystagmus. Sensorium / Orientation: awake, alert, oriented to person, oriented to place and oriented to time Motor Exam: strength 5/5 throughout and strength abnormal Psych mental status grossly normal Skin no rashes or lesions noted and no wounds MDM MDM MDM Narrative Medical decision making narrative: Patient with complaint of dizziness and feeling off balance for approximately 5 days. Negative Hallpike on exam. No obvious ataxia on exam. With ambulation however she does seem to fall to the right slightly and this is what she is complaining of. She did not drive yesterday because she did not feel safe to drive. IV line established. CT brain obtained showed no acute findings. CBC with differential showed a white count of 8.9 with hemoglobin 16.6 and platelet count of 254. Chemistries unremarkable. BUN 24 and creatinine 1.48. Troponin was 4. Urinalysis was normal. At this point etiology of her dizziness and fe eling off balance unclear although concern for possibility of posterior stroke. Will discuss case with hospitalist to evaluate patient for admission for further workup including possibly MRI to evaluate further. Lab Data Attestation: I reviewed the patient's lab results. Labs: Laboratory Results - last 24 hr 05/26/24 05/26/24 20:30 21:52 WBC 8.9 RBC 5.71 H Hgb 16.6 H Hct 50.8 H MCV 89.0 MCH 29.1 MCHC 32.7 RDW Std Deviation 45.1 H RDW Coeff of Wilfred 14.2 Plt Count 254 MPV 10.5 Immature Gran % (Auto) 0.300 Neut % (Auto) 71.9 H Lymph % (Auto) 17.8 L [place] % (Auto) 6.6 Eos % (Auto) 2.8 Baso % (Auto) 0.6 Absolute Neuts (auto) 6.4 Absolute Lymphs (auto) 1.58 Nucleated RBC % 0 Sodium 139 Potassium 3.7 Chloride 107 Carbon Dioxide 25.0 Anion Gap 8 BUN 24 H Creatinine 1.48 H Estim Creat Clear Calc 36.99 Est GFR (MDRD) Af Amer 44 L Est GFR (MDRD) Non-Af 37 L BUN/Creatinine Ratio 16.2 Glucose 169 H Calcium 9.5 Troponin I High Sens 4 Urine Color Yellow Urine Clarity Clear Urine pH 6.0 Ur Specific [place] 1.020 Urine Protein Negative Urine Glucose (UA) 1000 H Urine Ketones Negative Urine Occult Blood Negative Urine Nitrite Negative Urine Bilirubin Negative Urine Urobilinogen Normal Ur Leukocyte Esterase Negative Urine RBC 0 SEEN Urine WBC 0 SEEN Ur Squamous Epith Cells 0 SEEN Urine Bacteria 0 SEEN Urine Mucus 0 SEEN Radiography Diagnostic Testing: Clinical Impression(s) from Imaging Studies Brain CT 05/26/24 20:35 IMPRESSION: 1. Chronic involutional changes of the brain. 2. No CT evidence of acute intracranial hemorrhage. Electronically Signed: Angeles Garcia MD at 21:53 EDT Reading Location ID and State: [id number] [facility] , Service support , EKG Initial EKG: Attestation: I personally reviewed and interpreted this EKG as follows: Comments: Sinus rhythm with rate of 94 bpm with no acute ST segment changes Discharge Plan Triage Chief Complaint: Dizziness ED Provider: Malik Yanes Dx/Rx/DC Orders Clinical Impression: Dizziness, Dysequilibrium, History of hypertension Prescriptions: No Action Cequa 0.09 % dropperette 1 drp ophthalmic (eye) BID Trulicity 1.5 mg/0.5 mL pen injector 3 mg subcut QWEEK irbesartan 150 mg tablet 1 ea PO DAILY Patient Comments: TAKE 1 TABLET BY MOUTH EVERY DAY -CONSIDER STARTING WITH A 1/2 TABLET FOR 4 DAYS TO ADJUST aspirin [Adult Low Dose Aspirin] 81 mg tablet,delayed release (DR/EC) 81 mg PO DAILY metronidazole 0.75 % cream 1 applic topical DAILY dapagliflozin propanediol [Farxiga] 10 mg tablet 10 mg PO DAILY atorvastatin 10 MG tablet 40 mg PO DAILY multivitamin,[id number]-[id number] 1 TABLET tablet 1 tab PO DAILY calcium carbonate-vitamin D3 1 EACH tablet 2 ea PO DAILY furosemide 20 MG tablet 20 mg PO DAILY methimazole 5 MG tablet 2.5 mg PO DAILY Rx Instructions: ON HOLD FOR 3 MONTHS cyanocobalamin (vitamin B-12) 500 MCG tablet 500 mcg PO DAILY@0800 cholecalciferol (vitamin D3) 5,000 UNIT capsule 5,000 unit PO DAILY Primary Care Provider: Noah Brambila Referrals: Noah Brambila DO [Primary Care Provider] - Print Language: Croatian Disposition Disposition: Acute Care Hospital [facility]
--- NOTE | 2024-05-26 20:36 | ED.RN ---
PT C/O INTERMITTENT DIZZINESS FOR THE LAST SEVERAL DAYS. STATES IT FEELS LIKE SHE IS OFF BALANCE. DENIES NAUSEA AND HEADACHE BUT STATES HER STOMACH FEELS FUNNY
[2024-05-26 20:58] LABS: Absolute Lymphocyte Count 1.58 X10^3/uL (0.83-4.51); Absolute Neutrophil Count 6.4 X10^3/uL (2.0-7.7); Basophil# 0.05 X10^3/uL; Basophil% 0.6 % (0-1); Eosinophil# 0.25 X10^3/uL; Eosinophils% 2.8 % (0-5); Hematocrit 50.8 % (37-47); Hemoglobin 16.6 g/dL (12.0-15.0); Lymphocyte # 1.58 X10^3/ul (0.83-4.51); Lymphocyte % 17.8 % (19-41); Mean Corp Hgb Conc 32.7 g/dL (32-36); Mean Corpuscular Hgb 29.1 pg (27.0-32.0); Mean Platelet Vol. 10.5 fl (6.2-12.0); Monocyte# 0.59 X10^3/uL; Monocyte% 6.6 % (0-10); NRBC Flagged by Analyzer 0 % (0-5); Neutrophil # 6.39 X10^3/uL (2.7-7.7); Neutrophil % 71.9 % (47-70); Platelet Count 254 K/mm3 (150-450); RBC Distribution Width CV 14.2 % (11.6-14.6); RBC Distribution Width SD 45.1 fl (35.1-43.9); Red Blood Count 5.71 M/mm3 (4.2-5.4); White Blood Count 8.9 K/mm3 (4.4-11.0)
[2024-05-26 21:23] LABS: Anion Gap 8 (5-15); BUN 24 mg/dL (7-18); BUN/Creat Ratio 16.2 RATIO (10-20); Calcium,Total 9.5 mg/dL (8.5-10.1); Chloride 107 mmol/L (98-107); Creatinine, Serum 1.48 mg/dL (0.55-1.02); EST Glomerular Filtration Rate 37 mL/min (>60); Est Glom Filt Rate - Afr Amer 44 mL/min (>60); Estimated Creatinine Clearance 36.99 ml/min; Glucose 169 mg/dL (74-106); Potassium 3.7 mmol/L (3.5-5.1); Sodium Level 139 mmol/L (136-145); Troponin-I HS 4 pg/mL (3.0-54.0)
[2024-05-26 21:35] VITALS: BP 146/102; BP 148/82; BP 148/86; PULSE 101; PULSE 104; PULSE 114
[2024-05-26 21:56] LABS: Bacteria 0 SEEN /hpf (None Seen); Mucous, Urine 0 SEEN /hpf (<or=2+); Red Blood Cells-Urine 0 SEEN /hpf (0-5); Squamous Epithelial Cells - UA 0 SEEN /hpf (5-10); White Blood Cells 0 SEEN /hpf (0-5)
[2024-05-26 21:57] VITALS: BP 146/105; PULSE 105; RESP 18; O2SAT 94
[2024-05-26 21:58] LABS: Color, Urine Yellow (Yellow); Glucose, Dipstick 1000 mg/dl (Normal); Ketone-Dipstick Negative (Negative); Leukocyte Esterase-Dipstick Negative /ul (Negative); Nitrite-Dipstick Negative (Negative); Occult Blood-Urine Negative /ul (Negative); Protein-Dipstick Negative (Negative); Urine Bilirubin Dipstick Negative (Negative); Urine Clarity Clear (Clear); Urine Urobilinogen Normal (Normal)
--- NOTE | 2024-05-26 22:49 | HP.PCM.HOS_ITS ---
[facility] - General General Date of Admission: 05/26/24 Date of Service: 05/26/24 Chief Complaint: Dizziness. HPI Narrative AUGUSTIN LÓPEZ, is a 73 F with a past medical history of essential hypertension, hyperlipidemia, hyperthyroidism; on Methimazole, obesity; with BMI of 39.5 this admission, DM-2; of unknown control on Mounjaro and dapagliflozin, history of uterine cancer; s/p hysterectomy, history of Pickens syndrome; s/p colectomy, history of appendectomy, history of rectal polypectomy, history of melanoma; s/p excision (2016), CKD; stage III, history of Kelly's palsy (2014), RLS, history of severe presbycusis; with hearing aid in Left ear (and deaf in Right ear - but excellent lip reading skill) and OA; with history of Right foot fracture who presents to [facility] ER complaining of dizziness. Ms. López reports her symptoms began approximately one week prior to admission with a sensation of dizziness that has been intermittent but then got worse today after she was very close to a marching band with extremely loud drummers that almost knocked her over due to the vibration even though she is deaf in her Right ear. She admits to feeling of-balance and she states she is feeling like she feels like she is going to fall toward her Right side. She denies associated fever, chills, nausea, vomiting, headache, chest pain, SOB or other recent illness. In the ER she had a negative CT of the head along with an unremarkable [place]-Hallpike maneuver with the ER physician worried for possible posterior CVA resulting in call to the hospitalist service to admit this patient to PCU under observation status for a stay that is expected to be less than 2 midnights. 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 Home Medications ?Medication ?Instructions ?Recorded ?Last Taken ?Type calcium 600 mg (as 2 ea PO DAILY 02/26/14 Unknown History carbonate)-vitamin D3 10 mcg (400 unit) tablet multivitamin,[id number]-byvm-[id number] 27 1 tab PO DAILY 02/26/14 Unknown History mg-0.4 mg tablet cholecalciferol (vitamin D3) 125 5,000 unit PO DAILY 05/19/18 Unknown History mcg (5,000 unit) capsule cyanocobalamin (vitamin B-12) 500 500 mcg PO DAILY@0800 05/19/18 Unknown History mcg tablet methimazole 5 mg tablet 2.5 mg PO DAILY hyperthyroid 05/19/18 Unknown History cyclosporine 0.09 % eye drops in a 1 drp ophthalmic (eye) BID 08/25/21 Unknown History dropperette (Cequa) irbesartan 150 mg tablet 1 ea PO DAILY 04/21/22 Unknown History aspirin 81 mg tablet,delayed 81 mg PO DAILY 02/22/23 Unknown History release (Adult Low Dose Aspirin) dapagliflozin propanediol 10 mg 10 mg PO DAILY 08/26/23 Unknown History tablet (Farxiga) atorvastatin 40 mg tablet 40 mg PO DAILY 05/26/24 Unknown History tirzepatide 5 mg/0.5 mL 5 mg subcut QWEEK 05/26/24 Unknown History subcutaneous pen injector (Mounjaro) Allergy/AdvReac Type Severity Reaction Status Date / Time rofecoxib (From Vioxx) Allergy Intermediate Dizziness Verified 05/26/24 19:58 Family History Son Colon cancer, Onset Age: 32 oldest (37) and youngest (32) sons with colon cancer Father Heart disease Grandmother Breast cancer Brother Colon cancer Multiple sclerosis Pacemaker Sister NHL (non-Hodgkin's lymphoma) Surgical History Hx of colonoscopy History of colectomy History of hysterectomy History of appendectomy History of tonsillectomy History of tubal ligation Social History Smoking Status: Never smoker second hand exposure: No alcohol intake: never substance use type: does not use caffeine: Yes reginald/caodaism: Nazarene seatbelt use: always do you feel safe at home: Yes ROS ROS Narrative Review of Systems: Constitutional: Patient denies fever or chills. Eyes: Patient denies changes in vision or discharge from eyes. ENT: Patient admits to severe presbycusis but she denies runny nose, sore throat or ear pain. Resp: Patient denies SOB or cough. CV: Patient denies chest pain, palpitations or heart racing. GI: Patient denies abdominal pain, nausea, vomiting, diarrhea or constipation. : Patient denies dysuria or hematuria. MSK: Patient denies arthralgias or myalgias. Skin: Patient denies rash, abscess or jaundice. Psych: Patient denies symptoms of uncontrolled depression or anxiety. Neuro: Patient admits to intermittent dizziness as per HPI. Hematology: Patient denies easy bleeding or easy bruisability. Endocrinology: Patient denies polyuria, polydipsia or polyphagia. 14 point ROS otherwise negative except for positives noted above. Vital Signs Vital Signs Vital Signs: 05/26/24 19:58 05/26/24 21:35 05/26/24 21:57 Temperature 97 F L Temperature Source Temporal Pulse Rate 100 105 H Pulse Rate [Lying] 101 H Pulse Rate [Sitting (for 1 minute prior to obtaining)] 104 H Pulse Rate [Standing (for 1 minute prior to obtaining)] 114 H Respiratory Rate 18 18 Blood Pressure 175/111 H 146/105 H Blood Pressure [Lying] 148/86 H Blood Pressure [Sitting (for 1 minute prior to obtaining)] 148/82 H Blood Pressure [Standing (for 1 minute prior to obtaining)] 146/102 H Blood Pressure Mean 132 118 Blood Pressure Mean [Lying] 106 Blood Pressure Mean [Sitting (for 1 minute prior to obtaining)] 104 Blood Pressure Mean [Standing (for 1 minute prior to obtaining)] 116 Pulse Ox 97 94 Oxygen Delivery Method Room Air Room Air Weight Weight: 215 lb 12.8 oz Body Mass Index (BMI) 39.4 Physical Exam Const alert, oriented x3 and no apparent distress Constitutional Narrative: Patient is morbidly obese. General Appearance: cooperative HEENT normocephalic, head/scalp atraumatic, hearing grossly normal bilaterally and moist oral mucous membranes Eyes PERRL and EOMs intact bilaterally Neck no lymphadenopathy and supple Resp normal respiratory effort, no retractions, no use of accessory muscles and clear to auscultation bilaterally Cardio regular rate and regular rhythm GI normal to inspection, nondistended, normoactive bowel sounds, soft to palpation, non-tender and non-distended Extremity normal to inspection, full ROM and no clubbing, cyanosis or edema Skin Skin Narrative: Patient has no evidence of jaundice, rash or abscess. Neuro oriented x3, CN's II-XII intact bilaterally, moves all extremities and no focal motor deficits Sensorium / Orientation: awake, alert, oriented to person, oriented to place and oriented to time Speech: speech normal Psych affect normal Results Medical Records Data Attestation: I reviewed the patient's medical records Lab / Micro Data Attestation: I reviewed the patient's lab results. 05/26/24 20:30 05/26/24 20:30 Labs: Laboratory Results - last 24 hr 05/26/24 20:30: WBC 8.9, RBC 5.71 H, Hgb 16.6 H, Hct 50.8 H, MCV 89.0, MCH 29.1, MCHC 32.7, RDW Std Deviation 45.1 H, RDW Coeff of Wilfred 14.2, Plt Count 254, MPV 10.5, Immature Gran % (Auto) 0.300, Neut % (Auto) 71.9 H, Lymph % (Auto) 17.8 L, [place] % (Auto) 6.6, Eos % (Auto) 2.8, Baso % (Auto) 0.6, Absolute Neuts (auto) 6.4, Absolute Lymphs (auto) 1.58, Nucleated RBC % 0, Sodium 139, Potassium 3.7, Chloride 107, Carbon Dioxide 25.0, Anion Gap 8, BUN 24 H, Creatinine 1.48 H, Estim Creat Clear Calc 36.99, Est GFR (MDRD) Af Amer 44 L, Est GFR (MDRD) Non-Af 37 L, BUN/Creatinine Ratio 16.2, Glucose 169 H, Calcium 9.5, Troponin I High Sens 4 05/26/24 21:52: Urine Color Yellow, Urine Clarity Clear, Urine pH 6.0, Ur Specific [place] 1.020, Urine Protein Negative, Urine Glucose (UA) 1000 H, Urine Ketones Negative, Urine Occult Blood Negative, Urine Nitrite Negative, Urine Bilirubin Negative, Urine Urobilinogen Normal, Ur Leukocyte Esterase Negative, Urine RBC 0 SEEN, Urine WBC 0 SEEN, Ur Squamous Epith Cells 0 SEEN, Urine Bacteria 0 SEEN, Urine Mucus 0 SEEN Imaging Radiology Impression Brain CT 05/26/24 20:35 IMPRESSION: 1. Chronic involutional changes of the brain. 2. No CT evidence of acute intracranial hemorrhage. Electronically Signed: Angeles Gracia MD at 21:53 EDT Reading Location ID and State: [address] [place] [address] , Service support , Assessment & Plan Assessment/Plan (1) Dizziness: (2) Dysequilibrium: (3) History of hypertension: (4) High cholesterol: (5) Obesity (BMI 30-39.9): PLAN: Plan 1. Dizziness; with ER physician concerned for possible posterior circulation CVA - Admit to PCU under observation status. Check MRI of the brain to confirm no CVA or compromise of posterior circulation. Check carotid doppler to evaluate for stenosis. Check echocardiogram to evaluate LVEF. Continue BASA and statin. Finally, we will consult [facility] to see this patient on- rounds in the AM for further recommendations with help appreciated in advance. 2. Essential hypertension - Hold scheduled antihypertensives until CVA definitively ruled out on MRI. 3. Hyperlipidemia - Resume statin and check Lipid Profile. 4. Hyperthyroidism; on Methimazole - Maintain Methimazole on current dose and schedule plus check TSH. 5. Obesity; with BMI of 39.5 this admission - Weight loss will be recommended. 6. DM-2; of unknown control - ADA diet. FSBS q. AC/HS plus SSI. Check HgbA1c to objectively evaluate quality of diabetic control. 7. History of uterine cancer; s/p hysterectomy - Noted. 8. History of Pickens syndrome; s/p colectomy - Noted. 9. History of appendectomy - Noted. 10. History of rectal polypectomy - Noted. 11. History of melanoma; s/p excision (2016) - Noted. 12. CKD; stage III - Stable. Check renal indices daily to ensure continued stability. 13. History of Kelly's palsy (2014) - Noted for the sake of completeness. 14. RLS - Stable. 15. History of severe presbycusis; with hearing aid in Left ear (and very poor hearing from the Right ear) - Noted. 16. OA; with history of Right foot fracture -Give Tylenol prn. 17. DVT prophylaxis - Lovenox 40 mg sq daily. Total time: Approximately 70 minutes. Charges/Coding Visit Charges OBSV E&M: 51688 Observ/hosp same date L2
[2024-05-26 23:00] VITALS: BP 146/82; PULSE 102; RESP 16; O2SAT 93
--- NOTE | 2024-05-26 23:17 | ECHOD_ITS ---
Reason For Study: TIA/STROKE Procedure This was a 2D Doppler, Color Flow transthoracic echocardiogram. The study was technically difficult. Exam performed portable in patient room. Left Ventricle Normal size and thickness. The left ventricular ejection fraction is 65 %. Stage 1 diastolic dysfunction. Right Ventricle Normal right ventricle. Atria The left and right atria are normal. Aneurysmal atrial septum. Bubble contrast study for PFO nondiagnostic secondary to suboptimal images. Consider KERRI for further evaluation if clinically indicated. Mitral Valve Mild mitral annular calcification. Trivial mitral valve insufficiency. Tricuspid Valve Trivial tricuspid valve insufficiency. Unable to estimate RV systolic pressure due to insufficient tricuspid regurgitant envelope. Aortic Valve Trisinus/trileaflet aortic valve. Pulmonic Valve The pulmonic valve is not well visualized. Great Vessels The aortic root is not well visualized. Pericardium/Pleural No pericardial effusion. Medication Performed a rapid injection of agitated mix of 9 cc saline and 1cc air to assess for atrial septal defect. MMode/2D Measurements & Calculations LVIDd: 3.3 cm IVSd: 1.0 cm LVOT diam: 2.0 cm LVIDs: 2.4 cm LVPWd: 1.2 cm FS: 27.7 % LVOT area: 3.2 cm2 Ao root diam: 2.1 cm LAV(MOD-bp): 25.6 ml LVAd ap4: 18.8 cm2 LA dimension: 3.3 cm LAV(MOD-bp) Indexed: 13.1 ml/m2 LVLd ap4: 7.0 cm LAV(MOD-sp2): 23.4 ml EDV(MOD-sp4): 43.0 ml LAV(MOD-sp4): 25.3 ml EDV(sp4-el): 42.7 ml LVAs ap4: 7.6 cm2 LVLs ap4: 5.3 cm ESV(MOD-sp4): 10.0 ml ESV(sp4-el): 9.1 ml EF(MOD-sp4): 76.8 % EF(sp4-el): 78.8 % SV(MOD-sp4): 33.0 ml SV(sp4-el): 33.7 ml LA A4 area: 12.1 cm2 LA dimension(2D): 2.6 cm RA A4 area: 10.6 cm2 TAPSE: 2.4 cm Time Measurements MV dec time: 0.06 sec Doppler Measurements & Calculations MV E max vitor: 53.6 cm/sec Lat Peak E' Vitor: 9.6 cm/sec Med Peak E' Vitor: 6.1 cm/sec MV A max vitor: 92.0 cm/sec E/E' lat: 5.6 E/E' med: 8.8 MV E/A: 0.58 MV V2 max: 96.1 cm/sec MV dec slope: 919.2 cm/sec2 Ao V2 max: 107.7 cm/sec MV max P.7 mmHg Ao max P.6 mmHg MV V2 mean: 62.4 cm/sec Ao V2 mean: 75.3 cm/sec MV mean P.7 mmHg Ao mean P.6 mmHg MV V2 VTI: 22.1 cm Ao V2 VTI: 21.2 cm MVA(VTI): 2.7 cm2 AV (velocity ratio): 0.89 RICKI(I,D): 2.8 cm2 RICKI(V,D): 2.8 cm2 LV V1 max: 94.7 cm/sec SV(LVOT): 59.9 ml PA V2 max: 85.7 cm/sec LV V1 max P.6 mmHg PA V2 mean: 60.9 cm/sec LV V1 mean P.2 mmHg LV V1 mean: 68.6 cm/sec LV V1 VTI: 18.9 cm ECHO/Echo Complete Interpretation Summary The study was technically difficult. The left ventricular ejection fraction is 65 %. Stage 1 diastolic dysfunction. Aneurysmal atrial septum. Bubble contrast study for PFO nondiagnostic secondary to suboptimal images. 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 Mild mitral annular calcification. Ordering Physician: Robbie Mckeon Referring Physician: Malik Yanes Performed By: Nataly Arriaga RCS
[2024-05-26 23:24] VITALS: BP 146/82; PULSE 102; RESP 16; TEMP 36.4; O2SAT 96
[2024-05-27 00:21] LABS: Hemoglobin A1c 5.9 % (3.8-5.6)
[2024-05-27 01:14] VITALS: BMI 38.9
[2024-05-27 01:40] VITALS: BP 148/94; PULSE 89; RESP 18; TEMP 35.6; O2SAT 100
[2024-05-27 02:13] VITALS: O2SAT 94
--- NOTE | 2024-05-27 04:39 | MRI_ITS ---
STUDY: MRI BRAIN WITHOUT CONTRAST REASON FOR EXAM: Female, 73 years old. rule out stroke, dizzy intermittently TECHNIQUE: Standardized multiplanar fat and water weighted pulse sequences were obtained. COMPARISON: Head CT dated May 26, 2024 FINDINGS: Numerous ovoid plaque-like T2 hyperintensities are scattered throughout the periventricular white matter and throughout the corpus callosum consistent with underlying demyelinating disease, most likely multiple sclerosis. Additional superimposed chronic ischemic signal is present in the same regions with sparing the corpus callosum. Coalesced demyelinating plaques are and the splenium of the corpus callosum bilaterally. No active diffusion weighted signal is present in the plaques. There is mild cerebral atrophy with widening of the extra-axial spaces and ventricular dilatation. There are a limited number of small white matter hyperintensities, distributed throughout the deep white matter tracts of the cerebral hemispheres, consistent with mild chronic white matter ischemic changes. Normal bilateral frontal poles, and orbital frontal and gyrus recti of the frontal lobes. Normal bilateral temporal tips of the temporal lobes. There are no white matter shear injuries (diffuse axonal injuries). There are no parenchymal hemorrhages or hematomas. There are no findings to suggest prior closed head parenchymal injury of the brain. There is no evidence for recent intracranial ischemia or other cause of cytotoxic edema on diffusion weighted imaging (DWI). Normal bilateral basal ganglia. Normal thalami. There is no extra-axial fluid accumulation. Normal flow voids within the major intracranial circulation suggesting patency by spin echo criteria. Normal sella turcica, pituitary gland, infundibular stalk, optic chiasm and hypothalamus. Normal tectal plate and pineal gland. Normal midbrain, zachariah and medulla. Normal cerebellum. Normal basal cisterns. Normal bilateral temporal bones. Normal bilateral internal auditory canals. No demonstrated orbital abnormality, within the constraints of a routine brain study. Normal visualized paranasal sinuses. Normal calvarium and skull base. Normal visualized soft tissue structures. Normal visualized upper cervical spine. MRI/Brain without Contrast IMPRESSION: 1. Numerous ovoid plaque-like T2 hyperintensities are scattered throughout the periventricular white matter and throughout the corpus callosum consistent with underlying demyelinating disease, most likely multiple sclerosis. Additional superimposed chronic ischemic signal is present in the same regions with sparing the corpus callosum. Coalesced demyelinating plaques are and the splenium of the corpus callosum bilaterally. 2. No acute infarct or intracranial hemorrhage Electronically Signed: Christopher Gonsales MD at 9:06 EDT ,
[2024-05-27 05:45] VITALS: BP 132/86; PULSE 95; RESP 18; TEMP 36.2; O2SAT 97
[2024-05-27 06:38] LABS: Bedside Glucose 108 mg/dL (74-106)
--- NOTE | 2024-05-27 07:38 | PN.HOSP_ITS ---
Reason for Visit Reason for Visit: Diagnoses Obesity, unspecified (05/26/24) Pure hypercholesterolemia, unspecified (05/26/24) Dizziness and giddiness (05/26/24) Personal history of other diseases of the circulatory system (05/26/24) Subjective Subjective Dizzy upon standing out. Objective Data Objective Data Vital Signs: Vital Signs Temp Pulse Resp BP Pulse Ox O2 Del Method 36.2 C L 95 18 132/86 H 97 Room Air 05/27/24 05:45 05/27/24 05:45 05/27/24 05:45 05/27/24 05:45 05/27/24 05:45 05/27/24 05:45 Oxygen Delivery Method Room Air Weight: 96.6 kg Body Mass Index (BMI) 38.9 Lab / Micro Data 05/26/24 20:30 05/26/24 20:30 Labs: Laboratory Results - last 24 hr 05/26/24 20:30: WBC 8.9, RBC 5.71 H, Hgb 16.6 H, Hct 50.8 H, MCV 89.0, MCH 29.1, MCHC 32.7, RDW Std Deviation 45.1 H, RDW Coeff of Wilfred 14.2, Plt Count 254, MPV 10.5, Immature Gran % (Auto) 0.300, Neut % (Auto) 71.9 H, Lymph % (Auto) 17.8 L, [place] % (Auto) 6.6, Eos % (Auto) 2.8, Baso % (Auto) 0.6, Absolute Neuts (auto) 6.4, Absolute Lymphs (auto) 1.58, Nucleated RBC % 0, Sodium 139, Potassium 3.7, Chloride 107, Carbon Dioxide 25.0, Anion Gap 8, BUN 24 H, Creatinine 1.48 H, Estim Creat Clear Calc 36.99, Est GFR (MDRD) Af Amer 44 L, Est GFR (MDRD) Non-Af 37 L, BUN/Creatinine Ratio 16.2, Glucose 169 H, Hemoglobin A1c 5.9 H, Calcium 9.5, Troponin I High Sens 4, TSH 1.030 05/26/24 21:52: Urine Color Yellow, Urine Clarity Clear, Urine pH 6.0, Ur Specific [place] 1.020, Urine Protein Negative, Urine Glucose (UA) 1000 H, Urine Ketones Negative, Urine Occult Blood Negative, Urine Nitrite Negative, Urine Bilirubin Negative, Urine Urobilinogen Normal, Ur Leukocyte Esterase Negative, Urine RBC 0 SEEN, Urine WBC 0 SEEN, Ur Squamous Epith Cells 0 SEEN, Urine Bacteria 0 SEEN, Urine Mucus 0 SEEN 05/26/24 23:35: Ethyl Alcohol 4.0 05/27/24 06:19: POC Glucose 108 H Radiography Diagnostic Testing: Radiology Impression Brain CT 05/26/24 20:35 IMPRESSION: 1. Chronic involutional changes of the brain. 2. No CT evidence of acute intracranial hemorrhage. Electronically Signed: Angeles Garcia MD at 21:53 EDT Reading Location ID and State: [address] [place] [address] , Service support , Physical Exam Const alert and no apparent distress HEENT head/scalp atraumatic and moist oral mucous membranes Resp normal respiratory effort, no retractions, no use of accessory muscles and clear to auscultation bilaterally Cardio regular rate, regular rhythm, S1 normal heart sound and S2 normal heart sound GI normal to inspection, nondistended, normoactive bowel sounds, soft to palpation, non-tender and non-distended Extremity normal to inspection and full ROM Neuro Sensorium / Orientation: awake Psych affect normal Assessment & Plan Assessment/Plan (1) Dizziness: (2) Dysequilibrium: (3) History of hypertension: (4) High cholesterol: (5) Obesity (BMI 30-39.9): PLAN: Plan Dizziness: * intermittent, but ongoing for 1 week and subjectively worse recently. * MRI brain showed multiple ovoid plaque-like T2 hyperintensities scattered throughout the periventricular WM and throughout the corpus callosum cw with underlying demyelinating disease. * Will consult [facility] neurology for recommendations. Chronic conditions: * Essential hypertension: given symptoms started 1 week ago, will resume irbesartan * Hyperthyroidism: continue methimazole * HLP: continue statin * obesity class II: complicates care and recovery. * DM-2: a1c 5.9. VTE prophylaxis - Lovenox 40 mg sq daily. Charges/Coding Visit Charges Inpatient E&M: 52283 Subs Hosp L2
[2024-05-27 08:06] VITALS: BMI 38.9
[2024-05-27 08:45] LABS: Cholesterol 117 mg/dL (200); High Density Lipoprotein 47 mg/dL; Triglycerides 161 mg/dL; Very Low Density Lipoprotein 32 mg/dL (5-40)
[2024-05-27 09:45] VITALS: BP 108/97; PULSE 82; RESP 18; TEMP 36.4; O2SAT 96
[2024-05-27] MEDS: Methimazole 5 MG Tablet 2.5 MG PO (10:27)
[2024-05-27] MEDS: Enoxaparin 40 MG/0.4 ML Syringe SC (10:27)
[2024-05-27] MEDS: Aspirin 81 MG TAB.CHEW PO (10:27)
[2024-05-27] MEDS: Calcium Carb/Vitamin D 1 TABLET Tablet 2 TABLET PO (10:27)
[2024-05-27] MEDS: Meclizine 12.5 MG Tablet PO ×2 (10:27→15:42)
[2024-05-27] MEDS: Cyanocobalamin 500 MCG Tablet PO (10:27)
[2024-05-27] MEDS: FLU VACCINE **HIGH DOSE** TV 24-25 180 MCG/0.5 ML SYRINGE IM (10:28)
[2024-05-27] MEDS: Empagliflozin 25 MG Tablet PO (10:31)
[2024-05-27] MEDS: Losartan Potassium 50 MG Tablet PO (10:31)
[2024-05-27 11:35] LABS: Bedside Glucose 129 mg/dL (74-106)
--- NOTE | 2024-05-27 13:58 | CASEMGMT ---
SW did not complete a PHQ 9 as patient did not have a Stroke or TIA. Hui NUGENT
[2024-05-27 15:32] VITALS: BP 124/84; PULSE 84; RESP 18; TEMP 36.4; O2SAT 96
--- NOTE | 2024-05-27 16:06 | CASEMGMT ---
ISHANA VO in to complete MARTÍNEZ form with patient. RN TAVO explained MARTÍNEZ form to patient, patient voiced understanding. Patient signed MARTÍNEZ form and filed in chart. Patient provided copy of signed MARTÍNEZ form. Patient states she is at baseline and denies needs at discharge. Patient had no further questions or concerns.
[2024-05-27 17:13] LABS: Bedside Glucose 97 mg/dL (74-106)
[2024-05-27] MEDS: Atorvastatin Calcium 40 MG Tablet PO (21:28)
[2024-05-27 21:47] LABS: Bedside Glucose 92 mg/dL (74-106)
[2024-05-27 21:50] VITALS: BP 135/79; PULSE 83; RESP 18; TEMP 36.3; O2SAT 98
[2024-05-28 04:40] VITALS: BP 124/80; PULSE 89; RESP 18; TEMP 36.5; O2SAT 96
[2024-05-28] MEDS: Meclizine 12.5 MG Tablet PO ×2 (06:07→20:10)
[2024-05-28 06:21] LABS: Bedside Glucose 107 mg/dL (74-106)
[2024-05-28 07:00] VITALS: O2SAT 94
--- NOTE | 2024-05-28 07:43 | PN.HOSP_ITS ---
Reason for Visit Reason for Visit: Diagnoses Obesity, unspecified (05/26/24) Pure hypercholesterolemia, unspecified (05/26/24) Dizziness and giddiness (05/26/24) Personal history of other diseases of the circulatory system (05/26/24) Subjective Subjective Still feeling dizzy. Objective Data Objective Data Vital Signs: Vital Signs Temp Pulse Resp BP Pulse Ox O2 Del Method 36.5 C L 89 18 124/80 H 94 Room Air 05/28/24 04:40 05/28/24 04:40 05/28/24 04:40 05/28/24 04:40 05/28/24 07:00 05/28/24 07:00 Oxygen Delivery Method Room Air Weight: 96.6 kg Body Mass Index (BMI) 38.9 Lab / Micro Data 05/26/24 20:30 05/26/24 20:30 Labs: Laboratory Results - last 24 hr 05/27/24 06:10: Triglycerides 161, Cholesterol 117, LDL Cholesterol 38, VLDL Cholesterol 32, HDL Cholesterol 47 05/27/24 11:17: POC Glucose 129 H 05/27/24 16:27: POC Glucose 97 05/27/24 21:27: POC Glucose 92 05/28/24 06:03: POC Glucose 107 H Radiography Diagnostic Testing: Radiology Impression Echocardiogram 05/26/24 23:17 Interpretation Summary The study was technically difficult. The left ventricular ejection fraction is 65 %. Stage 1 diastolic dysfunction. Aneurysmal atrial septum. Bubble contrast study for PFO nondiagnostic secondary to suboptimal images. Consider KERRI for further evaluation if clinically indicated. Mild mitral annular calcification. Ordering Physician: Robbie Mckeon Referring Physician: Malik Yanes Performed By: Nataly Arriaga RCS Brain MRI 05/27/24 04:39 IMPRESSION: 1. Numerous ovoid plaque-like T2 hyperintensities are scattered throughout the periventricular white matter and throughout the corpus callosum consistent with underlying demyelinating disease, most likely multiple sclerosis. Additional superimposed chronic ischemic signal is present in the same regions with sparing the corpus callosum. Coalesced demyelinating plaques are and the splenium of the corpus callosum bilaterally. 2. No acute infarct or intracranial hemorrhage Electronically Signed: Christopher Gonsales MD at 9:06 EDT Reading Location ID and State: [facility] / [place] , Service support , Physical Exam Const alert Constitutional Narrative: Hard of hearing hearing aid in place. Able to read lips. HEENT head/scalp atraumatic and moist oral mucous membranes Resp normal respiratory effort and no retractions Extremity normal to inspection Neuro moves all extremities and no focal motor deficits Sensorium / Orientation: awake and alert Psych affect normal Assessment & Plan Assessment/Plan (1) Dizziness: (2) Dysequilibrium: PLAN: Plan Demyelinating lesions * Concern for multiple sclerosis. Likely the cause of the dizziness. * Will consult [facility] neurology for recommendations. 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 * DM-2: a1c 5.9. continue empagliflozine VTE prophylaxis - Lovenox 40 mg sq daily. Charges/Coding Visit Charges Inpatient E&M: 99597 Subs Hosp L2
[2024-05-28] MEDS: Enoxaparin 40 MG/0.4 ML Syringe SC (09:29)
[2024-05-28] MEDS: Cyanocobalamin 500 MCG Tablet PO (09:29)
[2024-05-28] MEDS: Empagliflozin 25 MG Tablet PO (09:29)
[2024-05-28 09:30] VITALS: BP 143/85; PULSE 88; RESP 18; TEMP 36.4; O2SAT 96
[2024-05-28] MEDS: Losartan Potassium 50 MG Tablet PO (09:30)
[2024-05-28] MEDS: Calcium Carb/Vitamin D 1 TABLET Tablet 2 TABLET PO (09:30)
[2024-05-28] MEDS: Aspirin 81 MG TAB.CHEW PO (09:30)
[2024-05-28] MEDS: Methimazole 5 MG Tablet 2.5 MG PO (09:30)
[2024-05-28] MEDS: Acetaminophen 325 MG Tablet 650 MG PO ×2 (10:47→20:09)
[2024-05-28] MEDS: Glycerin/Hypromellose/PEG400 15 ml Bottle EACH EYE (10:47)
[2024-05-28 11:13] LABS: Bedside Glucose 119 mg/dL (74-106)
[2024-05-28 15:04] VITALS: BP 141/81; PULSE 81; RESP 18; TEMP 36.4; O2SAT 96
[2024-05-28 16:32] LABS: Bedside Glucose 87 mg/dL (74-106)
[2024-05-28] MEDS: Atorvastatin Calcium 40 MG Tablet PO (20:10)
[2024-05-28 20:15] VITALS: BP 123/80; PULSE 83; RESP 14; TEMP 36.3; O2SAT 95
--- NOTE | 2024-05-28 20:41 | CON.PCM.NE_ITS ---
Assessment and Plan: Neuro Assessment/Plan AUGUSTIN NELSON is a 73 F with a past medical history of T2DM, Pickens syndrome, colon cancer, uterine cancer, melanoma being evaluated by Teleneurology afterd demyelinating lesions found on MRI brain. While these lesions are consistent with MS it would be unusual for MS to present this way in a 73 year old. I do believe she warrants evaluation by a subspecialist neuro-air operations manager. These lesions are likely not connected to her dizziness, which she strongly correlates to a particular event and which by description seems peripheral. She does not, in any case, have an acute stroke producing dizziness. Diagnosis: demyelinating disease Plan - meclizine reasonable as symptomatic treatment for dizziness - please refer to [facility] Neurology (specify Neuroimmunology, Dr. Bishnu Goldstein, for demyelinating disease of unknown type) in comments I personally attended this patient and spent a total tme of 30 minutes evaluating this patient including clinical assessment, review of chart, medical history imaging, and determining appropriate treatment and workup. Emanuel Quesada MD wood tile installer [facility] Teleneurology HPI Consult Data Date of Consult: 05/28/24 HPI Narrative HPI Narrative: AUGUSTIN NELSON, is a 73 F with history of HTN, HLD, hyperthyroid, T2DM, uterine cancer, colon cancer, melanoma, Pickens syndrome, [place] Palsy and severe presbycusis with hearing aid (hard of hearing) who presented for dizziness. Dizziness had been intermittent for a week but worsened considerably when near a marching band. MRI obtained for stroke rule out showed many ovoid T2 Flair hyperintensities very suspicious for demyelinating disease like MS. She has no prior diansosi of MS. THis is the first MRI of her brain, to her knowledge, at least in recent history. No history of Lyme disease. Other than her dizziness, no current neurological deficits (though as noted above she does have a history of [place]). [facility] Medical History Family hx of colon cancer Profound hearing loss Wears hearing aid Wears partial dentures Cancer Thyroid disease Diabetes Arthritis Chronic kidney disease History of renal disease High cholesterol History of Kelly's palsy Shortness of breath on exertion Leg cramps Non-smoker Mass of right knee Melanoma Foot fracture, right Iliac node removal Hypertension Hyperlipidemia Pickens syndrome Uterine 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 Home Medications ?Medication ?Instructions ?Recorded ?Last Taken ?Type calcium 600 mg (as 2 ea PO DAILY 02/26/14 Unknown History carbonate)-vitamin D3 10 mcg (400 unit) tablet multivitamin,ql-uwrg-jafeenig 27 1 tab PO DAILY 02/26/14 Unknown History mg-0.4 mg tablet cholecalciferol (vitamin D3) 125 5,000 unit PO DAILY 05/19/18 Unknown History mcg (5,000 unit) capsule cyanocobalamin (vitamin B-12) 500 500 mcg PO DAILY@0800 05/19/18 Unknown History mcg tablet methimazole 5 mg tablet 2.5 mg PO DAILY hyperthyroid 05/19/18 Unknown History cyclosporine 0.09 % eye drops in a 1 drp ophthalmic (eye) BID 08/25/21 Unknown History dropperette (Cequa) irbesartan 150 mg tablet 1 ea PO DAILY 04/21/22 Unknown History aspirin 81 mg tablet,delayed 81 mg PO DAILY 02/22/23 Unknown History release (Adult Low Dose Aspirin) dapagliflozin propanediol 10 mg 10 mg PO DAILY 08/26/23 Unknown History tablet (Farxiga) atorvastatin 40 mg tablet 40 mg PO DAILY 05/26/24 Unknown History tirzepatide 5 mg/0.5 mL 5 mg subcut QWEEK 05/26/24 Unknown History subcutaneous pen injector (Mounjaro) Allergy/AdvReac Type Severity Reaction Status Date / Time rofecoxib (From Vioxx) Allergy Intermediate Dizziness Verified 05/26/24 19:58 Family History Son Colon cancer, Onset Age: 32 oldest (37) and youngest (32) sons with colon cancer Father Heart disease Grandmother Breast cancer Brother Colon cancer Multiple sclerosis Pacemaker Sister NHL (non-Hodgkin's lymphoma) Surgical History Hx of colonoscopy History of colectomy History of hysterectomy History of appendectomy History of tonsillectomy History of tubal ligation Social History Smoking Status: Never smoker second hand exposure: No alcohol intake: never substance use type: does not use caffeine: Yes reginald/advent: [employer] seatbelt use: always do you feel safe at home: Yes Vital Signs Vital Signs Vital Signs: 05/27/24 21:50 05/27/24 22:00 05/28/24 04:40 Temperature 97.3 F L 97.7 F L Temperature Source Temporal Temporal Pulse Rate 83 89 Respiratory Rate 18 18 Respiratory Effort Normal Non-Labored Respiratory Depth Normal Respiratory Pattern Normal Blood Pressure 135/79 H 124/80 H Blood Pressure Mean 97 94 Blood Pressure Source Blood Pressure Position Blood Pressure Location Pulse Ox 98 96 Oxygen Delivery Method Room Air Room Air Room Air 05/28/24 04:41 05/28/24 07:00 05/28/24 07:48 Temperature Temperature Source Pulse Rate Respiratory Rate Respiratory Effort Normal Non-Labored Normal Non-Labored Respiratory Depth Normal Normal Respiratory Pattern Normal Normal Blood Pressure Blood Pressure Mean Blood Pressure Source Blood Pressure Position Blood Pressure Location Pulse Ox 94 Oxygen Delivery Method Room Air Room Air 05/28/24 09:30 05/28/24 14:00 05/28/24 15:04 Temperature 97.6 F L 97.6 F L Temperature Source Temporal Temporal Pulse Rate 88 81 Respiratory Rate 18 18 Respiratory Effort Normal Non-Labored Respiratory Depth Normal Respiratory Pattern Normal Blood Pressure 143/85 H 141/81 H Blood Pressure Mean 104 101 Blood Pressure Source Monitor Monitor Blood Pressure Position Sitting Sitting Blood Pressure Location Right Forearm Right Forearm Pulse Ox 96 96 Oxygen Delivery Method Room Air Room Air Room Air 05/28/24 20:15 Temperature 97.4 F L Temperature Source Temporal Pulse Rate 83 Respiratory Rate 14 Respiratory Effort Respiratory Depth Respiratory Pattern Blood Pressure 123/80 H Blood Pressure Mean 94 Blood Pressure Source Monitor Blood Pressure Position Blood Pressure Location Pulse Ox 95 Oxygen Delivery Method Room Air Weight Weight: 96.6 kg Body Mass Index (BMI) 38.9 EEG Results Procedure Details EEG Procedure Details: AUGUSTIN NELSON is a 73 year old F with a past medical history of , who presents for evaluation of Electroencephalogram on DATE at TIME NIHSS NIHSS Nursing Documentation NIHSS Nursing Documentation: NIHSS: Ischemic Stroke/TIA Start: 05/26/24 23:16 Text: For PCU Patients: NIH and Neuro Check every 4 Status: Complete hours, PRN and with change in RN caregiver. Freq: [id number] Protocol: Activity Type Activity Date Activity User E-sign Co-sign Detail Recorded Client Recorded Date Recorded By Document 05/27/24 09:45 HI [id number] 05/27/24 12:23 HI 05/27/24 09:45 NIH Stroke Scale [NIHSS] A score of 0 is normal or asymptomatic . Total possible score is 42. Inpatient: RN or Physician to activate a stroke alert for onset of new stroke symptoms or with NIHSS increase >/= 3 points. Following change in neurological status, NIHSS will be performed per physician order or more frequently PRN. -1a. Level of Consciousness Alert; keenly responsive -1b. LOC Questions Answers BOTH questions correctly. -1c. LOC Commands Performs both tasks correctly . -2. Best Gaze Normal -3. Visual No visual loss -4. Facial Palsy Normal symmetrical movements -5a. Left Arm No drift; arm holds 90 (or 45 ) degrees for full 10 seconds -5b. Right Arm No drift; arm holds 90 (or 45 ) degrees for full 10 seconds -6a. Left Leg No drift; leg holds 30-degree position for full 5 seconds -6b. Right Leg No drift; leg holds 30-degree position for full 5 seconds -8. Sensory Normal; no sensory loss -9. Best Language No aphasia; normal -10. Dysarthria Normal -11. Extinction and Inattention No abnormality -Total 0 Query Text:A score of 0 is normal or asymptomatic. Total possible score is 42 . ED: Notify Physician for NIHSS increase by > / = 3 points. Inpatient: RN or Physician to activate a stroke alert for NIHSS increase of > / = 3 points. Coma Scale [Assess] -Eye Opening Spontaneous -Motor Obeys Commands -Verbal Oriented [Total] -Coma Scale Total 15 Physical Exam Narrative AOx4, able and willing historian. Language including naming and repetition intact. Hard of hearing - otherwise CN intact including EOMI, NO facial droop, sensation intact in V1/2/3 bilaterally, no dysarthria, head rotation intact. Strength 5/5 SA/EE/EF/Etl Informatica Architect/HF/KE/DF/PF. Heel to culver intact. Finger to nose intact. Lab / Micro Data 05/26/24 20:30 05/26/24 20:30 Labs: Laboratory Results - last 24 hr 05/27/24 21:27: POC Glucose 92 05/28/24 06:03: POC Glucose 107 H 05/28/24 10:51: POC Glucose 119 H 05/28/24 16:13: POC Glucose 87 Imaging MRI Brain 05/27/2024 IMPRESSION: 1. Numerous ovoid plaque-like T2 hyperintensities are scattered throughout the periventricular white matter and throughout the corpus callosum consistent with underlying demyelinating disease, most likely multiple sclerosis. Additional superimposed chronic ischemic signal is present in the same regions with sparing the corpus callosum. Coalesced demyelinating plaques are and the splenium of the corpus callosum bilaterally. 2. No acute infarct or intracranial hemorrhage Active Medications Active Medications Active Medications: Current Medications Generic Name Dose Route Start Last Admin Trade Name Freq PRN Reason Stop Dose Admin Acetaminophen 650 mg 05/26/24 23:22 05/28/24 20:09 Acetaminophen 325 Mg Tablet PO 650 mg Q6H PRN PRN Administration Pain 1-10 or Fever Aspirin 81 mg 05/27/24 08:00 05/28/24 09:30 Aspirin 81 Mg Tab.Chew PO 81 mg BREAKFAST PAYTON Administration Atorvastatin Calcium 40 mg 05/27/24 22:00 05/28/24 20:10 Atorvastatin Calcium 40 Mg Tablet PO 40 mg QHS PAYTON Administration Calcium/Vitamin D 2 tablet 05/27/24 08:00 05/28/24 09:30 Calcium Carb/Vitamin D 1 Tablet Tablet PO 2 tablet DAILYCM PAYTON Administration Cyanocobalamin 500 mcg 05/27/24 08:00 05/28/24 09:29 Cyanocobalamin 500 Mcg Tablet PO 500 mcg DAILY@0800 PAYTON Administration Empagliflozin 25 mg 05/27/24 10:00 05/28/24 09:29 Empagliflozin 25 Mg Tablet PO 25 mg DAILY PAYTON Administration Enoxaparin Sodium 40 mg 05/27/24 10:00 05/28/24 09:29 Enoxaparin 40 Mg/0.4 Ml Syringe SC 40 mg DAILY PAYTON Administration Glucagon 1 mg 05/27/24 03:57 Glucagon 1 Mg/Ml Syringe IM X1 PRN Hypoglycemia Protocol Glycerin/Hypromellose/Polyethylene 1 - 2 drp 05/27/24 10:00 05/28/24 10:47 Glycerin/Hypromellose/[id number] 15 Ml Bottle EACH EYE 2 drp Q2H PRN PRN Administration DRY EYES Dextrose 250 mls @ 0 mls/hr 05/27/24 03:57 Dextrose 10%-Water IV .Q0M PRN HYPOGLYCEMIA Protocol As Directed Insulin Human Lispro 0 unit 05/27/24 07:00 05/28/24 17:38 Insulin Lispro 100 Unit/Ml Insuln.Pen SC Not Given ACHS PAYTON Protocol Losartan Potassium 50 mg 05/27/24 10:00 05/28/24 09:30 Losartan Potassium 50 Mg Tablet PO 50 mg DAILY PAYTON Administration Meclizine HCl 12.5 mg 05/26/24 23:22 05/28/24 20:10 Meclizine 12.5 Mg Tablet PO 12.5 mg TID PRN PRN Administration DIZZINESS Methimazole 2.5 mg 05/27/24 10:00 05/28/24 09:30 Methimazole 5 Mg Tablet PO 2.5 mg DAILY PAYTON Administration Sodium Chloride 10 - 40 ml 05/27/24 01:14 0.9% Saline Lock 10 Ml Syringe IV UD PRN SALINE FLUSH
[2024-05-28 22:04] LABS: Bedside Glucose 105 mg/dL (74-106)
[2024-05-29 02:00] VITALS: BP 131/78; PULSE 84; RESP 14; TEMP 36.6; O2SAT 95
[2024-05-29 08:28] VITALS: BP 130/78; PULSE 78; RESP 17; TEMP 36.8; O2SAT 97
[2024-05-29] MEDS: Aspirin 81 MG TAB.CHEW PO (08:30)
[2024-05-29] MEDS: Losartan Potassium 50 MG Tablet PO (08:31)
[2024-05-29] MEDS: Cyanocobalamin 500 MCG Tablet PO (08:31)
[2024-05-29] MEDS: Calcium Carb/Vitamin D 1 TABLET Tablet 2 TABLET PO (08:31)
[2024-05-29] MEDS: Empagliflozin 25 MG Tablet PO (08:32)
[2024-05-29] MEDS: Methimazole 5 MG Tablet 2.5 MG PO (08:32)
[2024-05-29 08:51] LABS: Bedside Glucose 102 mg/dL (74-106)
[2024-05-29] MEDS: Enoxaparin 40 MG/0.4 ML Syringe SC (10:43)
[2024-05-29 11:15] VITALS: BMI 38.9
[2024-05-29 11:22] VITALS: O2SAT 93
[2024-05-29] MEDS: Glycerin/Hypromellose/PEG400 15 ml Bottle EACH EYE (11:28)
[2024-05-29 12:00] LABS: Bedside Glucose 105 mg/dL (74-106)
--- NOTE | 2024-05-29 13:15 | PCM.DC ---
Discharge Instructions Diet Discharge Diet: Low fat / Low cholesterol Activity Discharge Activity: Return to Normal Activity Weight Bearing Status: Weight bearing as tolerated Dressing / Incision Call your doctor if you observe: Fever of 101 or Higher, Shortness of breath, Dizziness and Swelling in the ankles Follow Up Care Test Results: Test results from this visit will be discussed in further detail at your follow-up appointment, if applicable. Discharge Plan Admission Admit Date/Time: 05/26/24 23:23 Primary Reason for Your Visit: dizziness Attending Provider: Elizabeth Alcaraz Primary Care Provider: Noah Brambila Consulting Providers: Robbie Mckeon; Jose Garcia Instructions Patient Instructions: ED Dizziness, Uncertain Cause Additional Instructions / Restrictions: To follow up with Dr Bishnu Goldstein at [facility] for demyelinating disease of unknown type. TO call [facility] to set up appointment. Discharge Orders/Prescriptions Prescriptions: New meclizine 25 mg tablet 25 mg PO TID PRN (Reason: dizziness) Qty: 30 2RF Continued Cequa 0.09 % dropperette 1 drp ophthalmic (eye) BID irbesartan 150 mg tablet 1 ea PO DAILY Patient Comments: TAKE 1 TABLET BY MOUTH EVERY DAY -CONSIDER STARTING WITH A 1/2 TABLET FOR 4 DAYS TO ADJUST aspirin [Adult Low Dose Aspirin] 81 mg tablet,delayed release (DR/EC) 81 mg PO DAILY dapagliflozin propanediol [Farxiga] 10 mg tablet 10 mg PO DAILY multivitamin,[id number] 1 TABLET tablet 1 tab PO DAILY calcium carbonate-vitamin D3 1 EACH tablet 2 ea PO DAILY methimazole 5 MG tablet 2.5 mg PO DAILY Rx Instructions: ON HOLD FOR 3 MONTHS cyanocobalamin (vitamin B-12) 500 MCG tablet 500 mcg PO DAILY@0800 cholecalciferol (vitamin D3) 5,000 UNIT capsule 5,000 unit PO DAILY atorvastatin 40 mg tablet 40 mg PO DAILY Mounjaro 5 mg/0.5 mL pen injector 5 mg subcut QWEEK Referrals / Follow Up: Noah Brambila DO [Primary Care Provider] - Within 1 Week Disposition Disposition (needs filled in before D/C Order can be placed): Home, Self Care
--- NOTE | 2024-05-29 13:16 | PCM.DC.SUM ---
Providers Date of Admission: 05/26/24 Date of Discharge: 05/29/24 Primary Care Physician: Dr. Noah Brambila, Consultations 05/27/24 13:00 Consult: Tele-Neurology Routine Consulting Provider: [facility] Reason for Consult: dizziness. demyelinating disease EMERGENT Consult: No MD Notified: Yes Date Notified: 05/27/24 Time Notified: 13:45 Method of Notification: Answering Service Nursing Unit Staff Notify [facility] of Tele-Neurology Consult: Yes Reason For Visit: Dizziness Diagnosis Discharge Diagnosis (1) Dizziness: Status: Acute Code(s): R42 - Dizziness and giddiness (2) Dysequilibrium: Status: Acute Code(s): R42 - Dizziness and giddiness Medications at Discharge Home Medications calcium 600 mg (as carbonate)-vitamin D3 10 mcg (400 unit) tablet 2 ea PO DAILY supplement 02/26/14 multivitamin,ug-yvod-fwcviwqo 27 mg-0.4 mg tablet 1 tab PO DAILY vitamin 02/26/14 cholecalciferol (vitamin D3) 125 mcg (5,000 unit) capsule 5,000 unit PO DAILY heparin 05/19/18 cyanocobalamin (vitamin B-12) 500 mcg tablet 500 mcg PO DAILY@0800 vitamin 05/19/18 methimazole 5 mg tablet 2.5 mg PO DAILY hyperthyroid 05/19/18 cyclosporine 0.09 % eye drops in a dropperette (Cequa) 1 drp ophthalmic (eye) BID eye health 08/25/21 irbesartan 150 mg tablet 1 ea PO DAILY blood pressure 04/21/22 aspirin 81 mg tablet,delayed release (Adult Low Dose Aspirin) 81 mg PO DAILY heart health 02/22/23 dapagliflozin propanediol 10 mg tablet (Farxiga) 10 mg PO DAILY diabetes 08/26/23 atorvastatin 40 mg tablet 40 mg PO DAILY cholesterol 05/26/24 tirzepatide 5 mg/0.5 mL subcutaneous pen injector (Mounjaro) 5 mg subcut QWEEK diabetes 05/26/24 meclizine 25 mg tablet 25 mg PO TID PRN dizziness #30 tabs 05/29/24 Hospital Course Operations None Procedures 2-D Echocardiogram Summary of Care Provided Minutes Spent on Discharge: 47 Hospital Course: Patient is a 73-year-old female with a past medical history as outlined was admitted to the ED on 05/26/2024 with a complaint of dizziness. Her symptoms are started about a week prior to admission. The dizziness had initially been intermittent but subsequently got worse after she got close to a marching band with very loud trimester almost no clear over. She does have deafness in her right ear. She complained of feeling like she was off balance on her feet and felt like she was leaning towards her right side. CT brain was negative and she had Jannette-Hallpike maneuver in the ED which was also unremarkable. She was admitted for posterior stroke rule out. She was continued on her baby aspirin and statin. She had 2D echo which showed EF of 65% with stage I diastolic dysfunction and bubble contrast study for PFO nondiagnostic secondary to suboptimal images. She remained stable and had MRI which was negative for any evidence of ischemia but showed evidence of demyelinating lesions on the brain which was concerning for possible MS. Neurology reviewed her and commended that she follow-up with the subspecialist neuro plug shaper hand as it was unusual for MS present this way in a 73-year-old patient. She was therefore referred to Dr. Bishnu Goldstein of [facility] neuro immunology for demyelinating disease of unknown type. She remained stable and was discharged home on 05/29/2024. She was discharged on p.o. meclizine 25 mg 3 times daily as needed. She is follow-up with her primary care doctor and was referred to Dr. Bishnu Goldstein at [facility] neuro immunology as stated. Patient seen and examined. She had no active complaints. She got her son on speaker phone so he could also have his questions answered. She had no complaints and review of systems otherwise negative. Her dizziness had improved. Review of symptoms otherwise negative. Labs and vitals reviewed. Home medication reviewed and reconciled. Physical Exam Const alert, oriented x3, no apparent distress and average body habitus General Appearance: cooperative, comfortable and well kempt Orientation / Consciousness: awake HEENT normocephalic, head/scalp atraumatic and moist oral mucous membranes HEENT Narrative: patient deaf in the right ear Mouth: oral and palatal mucosa normal Eyes PERRL, EOMs intact bilaterally and conjunctivae normal Neck no lymphadenopathy and supple Resp normal respiratory effort, no retractions, no use of accessory muscles and clear to auscultation bilaterally Cardio regular rate, regular rhythm, S1 normal heart sound, S2 normal heart sound and no murmurs GI normal to inspection, nondistended, normoactive bowel sounds, soft to palpation, non-tender and non-distended Extremity normal to inspection, full ROM and no clubbing, cyanosis or edema Skin no rashes or lesions noted Neuro oriented x3, CN's II-XII intact bilaterally, moves all extremities, no focal motor deficits and no sensory deficits noted Sensorium / Orientation: awake and alert Motor Exam: strength 5/5 throughout Psych affect normal Weight / BMI Weight Weight: 212 lb 15.465 oz Body Mass Index (BMI) 38.9 ABG / Lab / Microbiology Data 05/26/24 20:30 05/26/24 20:30 Laboratory: Laboratory Results - last 24 hr 05/28/24 16:13: POC Glucose 87 05/28/24 21:46: POC Glucose 105 05/29/24 06:01: POC Glucose 102 05/29/24 11:26: POC Glucose 105 D/C Instructions Discharge Diet: Low fat / Low cholesterol Discharge Activity: Return to Normal Activity Weight Bearing Status: Weight bearing as tolerated Call your doctor if you observe: Fever of 101 or Higher, Shortness of breath, Dizziness and Swelling in the ankles Meaningful Use Info Meaningful Use Meaningful Use Diagnoses (Choose all that apply): None applicable Ischemic Stroke Statin Dosing Therapy Reference: STATIN DOSE THERAPY REFERENCE: * Patients > 75 years receive moderate or high dose statin therapy. * Patients 75 years or YOUNGER should receive HIGH intensity statin dose unless contraindicated. You will be required to document reason for non-treatment if statin daily dose does not meet guidelines. HIGH DOSE STATIN THERAPY DAILY Atorvastatin > than or = to 40 mg Rosuvastatin > than or = to 20 mg Amlodipine + Atorvastatin > than or = to 2.5/40 mg Ezetimibe + Simvastatin 10/80 mg Simvastatin 80mg Discharge Plan Admission Admit Date/Time: 05/26/24 23:23 Primary Reason for Your Visit: dizziness Attending Provider: Elizabeth Alcaraz Primary Care Provider: Noah Brambila Consulting Providers: Robbie Mckeon; oJse Garcia Instructions Patient Instructions: ED Dizziness, Uncertain Cause Additional Instructions / Restrictions: To follow up with Dr Bishnu Goldstein at [facility] for demyelinating disease of unknown type. TO call [facility] to set up appointment. Discharge Orders/Prescriptions Prescriptions: New meclizine 25 mg tablet 25 mg PO TID PRN (Reason: dizziness) Qty: 30 2RF Continued Cequa 0.09 % dropperette 1 drp ophthalmic (eye) BID irbesartan 150 mg tablet 1 ea PO DAILY Patient Comments: TAKE 1 TABLET BY MOUTH EVERY DAY -CONSIDER STARTING WITH A 1/2 TABLET FOR 4 DAYS TO ADJUST aspirin [Adult Low Dose Aspirin] 81 mg tablet,delayed release (DR/EC) 81 mg PO DAILY dapagliflozin propanediol [Farxiga] 10 mg tablet 10 mg PO DAILY multivitamin,[id number] 1 TABLET tablet 1 tab PO DAILY calcium carbonate-vitamin D3 1 EACH tablet 2 ea PO DAILY methimazole 5 MG tablet 2.5 mg PO DAILY Rx Instructions: ON HOLD FOR 3 MONTHS cyanocobalamin (vitamin B-12) 500 MCG tablet 500 mcg PO DAILY@0800 cholecalciferol (vitamin D3) 5,000 UNIT capsule 5,000 unit PO DAILY atorvastatin 40 mg tablet 40 mg PO DAILY Mounjaro 5 mg/0.5 mL pen injector 5 mg subcut QWEEK Referrals / Follow Up: Noah Brambila DO [Primary Care Provider] - 06/05/24 1:00 pm Disposition Disposition (needs filled in before D/C Order can be placed): Home, Self Care Charges/Coding Visit Charges Inpatient E&M: 59945 Disch Hosp >30min
[2024-05-29] MEDS: Meclizine 12.5 MG Tablet PO (13:35)
[2024-05-29 14:51] VITALS: BP 126/76; PULSE 84; RESP 18; TEMP 36.7; O2SAT 97
--- NOTE | 2024-05-29 15:05 | CASEMGMT ---
Patient has order for discharge. RN CM in to discuss needs at discharge with patient. Patient asked ISHAAN VO to speak with son Julian. RN TAVO called Julian and discuss progress with therapy and recommendations for vestibular therapy. Julian states that he will schedule at facility of choice. Son denied further needs or concerns at discharge and had no further questions. ISHAAN VO obtained script for outpatient therapy and provided in discharge packet.
== END 2024-05-29 13:15 | disposition home or self-care (01) ==
LOC: ED 22:48 → PCU 23:28
PROVIDERS: Admitting Provider Internal Medicine; Emergency Provider Emergency Medicine; Referring Provider Emergency Medicine; Visit Provider Student in an Organized Health Care Education/Training Program
DX: N18.30 Chronic kidney disease, stage 3 unspecified (principal); E11.22 Type 2 diabetes mellitus with diabetic chronic kidney disease; Z79.85 Long-term (current) use of injectable non-insulin antidiabetic drugs; I12.9 Hypertensive chronic kidney disease with stage 1 through stage 4 chronic kidney disease, or unspecified chronic kidney disease; Z79.84 Long term (current) use of oral hypoglycemic drugs; E66.812 Obesity, class 2; Z68.39 Body mass index [BMI] 39.0-39.9, adult; H91.90 Unspecified hearing loss, unspecified ear; E78.00 Pure hypercholesterolemia, unspecified; Z23 Encounter for immunization; Z79.899 Other long term (current) drug therapy; Z79.82 Long term (current) use of aspirin; E05.90 Thyrotoxicosis, unspecified without thyrotoxic crisis or storm; G25.81 Restless legs syndrome; M19.90 Unspecified osteoarthritis, unspecified site
CPT/HCPCS: 36415; 70450; 70551; 80048; 80061; 81001; 82077; 82962; 83036; 84443; 84484; 85025; 90662; 92610; 93005; 93306; 94762; 96372; 97116; 97162; 97166; 97530; 97802; 99221; 99285; P9612; A4216; G0378

== ENCOUNTER 2024-07-26 05:54 | Day surgery (SDC) | payer MEDICARE, SELFPAY ==
[2024-07-26] VITALS (8 sets, daily range): BP systolic 101–155; BP diastolic 67–120; PULSE 86–95; RESP 18; TEMP 36.3–37.1; O2SAT 92–95; BMI 37.9
--- NOTE | 2024-07-26 06:53 | PRE.ANES_ITS ---
ASA Classification* ASA Classification ASA Classification: 3 Assessment & Plan Anesthesia* Anesthesia Assessment Anesthesia Assessment: Discussed sedation and/or anesthesia options, risks, benefits, and alternatives with patient/parents/legal guardian/POA. Questions invited. The patient/parents/legal guardian/POA seems to understand and agrees to proceed with anesthesia plan. Reviewed the physical assessment, medical history, allergy history and patient home medications list prior to surgery/procedure/anesthetic and documented any changes. Performed airway and anesthesia risk assessments. Anesthesia Type Anesthesia Type: MAC Anesthesia Focused Assessment* Temperature: 97.4 F Pulse Rate: 94 Blood Pressure: 124/81 Respiratory Rate: 18 Pulse Ox: 95 Airway Assessment Mouth opens: >3 cm Mallampati Score: II Focused Labs Anesthesia Preop lab: CBC WBC 8.9 K/mm3 (4.4-11.0) 05/26/24 20:30 RBC 5.71 M/mm3 (4.2-5.4) H 05/26/24 20:30 Hgb 16.6 g/dL (12.0-15.0) H 05/26/24 20:30 Hct 50.8 % (37-47) H 05/26/24 20:30 Plt Count 254 K/mm3 (150-450) 05/26/24 20:30 CHEMISTRY Potassium 3.7 mmol/L (3.5-5.1) 05/26/24 20:30 Sodium 139 mmol/L (136-145) 05/26/24 20:30 BUN 24 mg/dL (7-18) H 05/26/24 20:30 Creatinine 1.48 mg/dL (0.55-1.02) H 05/26/24 20:30 Glucose 169 mg/dL (74-106) H 05/26/24 20:30 POC Glucose 105 mg/dL (74-106) 05/29/24 11:26 TSH 1.030 uIU/mL (0.358-3.740) 05/26/24 20:30 COAG Pre-Assessment Diagnosis/Proposed Procedure Planned Operative Procedure(s): EGD/CSCOPE Anesthesia History 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 When Was Last Pacemaker Check QUESTION #4 FULL TEXT: You/Your Family Experience fever (hyperthermia) with Anesthesia Last Oral Intake Last Oral intake: Last Oral Intake NPO since 18:00 07/26/24 06:41 Meds taken in AM with sips of No 07/26/24 06:41 water? Meds patient instructed to take am of surgery PONV PONV - line construction supervisor: PONV - line construction supervisor Female Yes 07/21/24 13:37 HX of Motion Sickness No 07/21/24 13:37 HX of N/V After Surgery No 07/21/24 13:37 Non-Smoker Yes 07/21/24 13:37 Duration of Surgery greater No 07/21/24 13:37 than 60 minutes Number of Risk Factors 2 07/21/24 13:37 PONV Score Moderate Risk 07/21/24 13:37 Height & Weight Height & Weight: Anesthesia: Height & Weight Height 5 ft 2 in 07/26/24 06:41 Weight: 94 kg 07/26/24 06:41 Body Mass Index (BMI) 37.9 07/26/24 06:41 Respiratory Assessment Respiratory Assessment - line construction supervisor: Respiratory Tract Infection Hx - line construction supervisor Hx Respiratory Tract Infection No 07/21/24 13:37 STOP Sleep Apnea STOP Sleep Apnea - line construction supervisor: STOP Sleep Apnea - line construction supervisor Hx Hypertension Yes: CONTROLLED WITH MED 07/21/24 13:37 Hx Sleep Apnea No 07/21/24 13:37 CPAP BIPAP Do you snore loudly (louder No 07/21/24 13:37 than talking or can be heard Do you often feel tired/ No 07/21/24 13:37 fatigued/ sleepy during daytime? Has anyone observed you stop No 07/21/24 13:37 breathing during sleep? STOP Results Negative 07/21/24 13:37 QUESTION #5 FULL TEXT : Do you snore loudly (louder than talking or can be heard through closed doors)? Tobacco Use History Tobacco Use History - line construction supervisor: Tobacco Use History - line construction supervisor Tobacco Use Smoking Status Never smoker 07/21/24 13:37 Hx Tobacco Use No 07/21/24 13:37 Years Smoking Packs Smoked per Day Smoking Cessation Date was within the last 15 years Hx Smoking Cessation Date Hx Smoking Cessation Counseling Hematologic Medial History Hematologic Hx - line construction supervisor: Hematologic Medical Hx - territory sales manager Hx of Blood Transfusion No 07/21/24 13:37 Hx of Transfusion in last 3 No 07/21/24 13:37 Months Date of Last Transfusion (if within last 3 months) Ever experience any problems No 07/21/24 13:37 with transfusion(s)? Specify any problems Hx of Preganancy in last 3 No 07/21/24 13:37 Months Nurse Filling Out Transfusion DSCHRIBER 07/21/24 13:37 & Questions: Date: 07/21/24 07/21/24 13:37 Time: 13:40 07/21/24 13:37 Patient unable to answer at this time (ie. confused, unrespo /Reproduction History /Reproductive History - line construction supervisor: /Reproductive Hx- line construction supervisor Hx Now No 07/21/24 13:37 Gestational Age (in weeks): EDC: Hx Hx Para Hx Section SAB No 07/21/24 13:37 PFSH Medical History History of echocardiogram Post-menopausal Easy bruising Syncope History of edema Obesity (BMI 30-39.9) Dysequilibrium Dizziness Family hx of colon cancer Profound hearing loss Wears hearing aid Wears partial dentures Cancer Thyroid disease Diabetes Arthritis Chronic kidney disease High cholesterol History of Kelly's palsy Shortness of breath on exertion Non-smoker Mass of right knee Melanoma Foot fracture, right Iliac node removal Hypertension Pickens syndrome Uterine 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 Home Medications ?Medication ?Instructions ?Recorded ?Last Taken ?Type calcium 600 mg (as 2 ea PO DAILY supplement 02/26/14 07/25/24 History carbonate)-vitamin D3 10 mcg (400 unit) tablet multivitamin,[id number] 27 1 tab PO DAILY vitamin 02/26/14 07/25/24 History mg-0.4 mg tablet cholecalciferol (vitamin D3) 125 5,000 unit PO DAILY heparin 05/19/18 07/25/24 History mcg (5,000 unit) capsule cyanocobalamin (vitamin B-12) 500 500 mcg PO DAILY@0800 vitamin 05/19/18 07/25/24 History mcg tablet methimazole 5 mg tablet 2.5 mg PO DAILY hyperthyroid 05/19/18 07/25/24 History cyclosporine 0.09 % eye drops in a 1 drp ophthalmic (eye) BID eye 08/25/21 07/26/24 History dropperette ([facility]) health irbesartan 150 mg tablet 1 ea PO DAILY blood pressure 04/21/22 07/25/24 History aspirin 81 mg tablet,delayed 81 mg PO DAILY heart health 02/22/23 07/22/24 History release (Adult Low Dose Aspirin) dapagliflozin propanediol 10 mg 10 mg PO DAILY diabetes 08/26/23 07/25/24 History tablet (Farxiga) atorvastatin 40 mg tablet 40 mg PO DAILY cholesterol 05/26/24 07/25/24 History tirzepatide 5 mg/0.5 mL 5 mg subcut WE diabetes 05/26/24 07/12/24 History subcutaneous pen injector (Mounjaro) Allergy/AdvReac Type Severity Reaction Status Date / Time rofecoxib (From Vioxx) Allergy Intermediate Dizziness Verified 07/26/24 06:38 Family History Son Colon cancer, Onset Age: 32 oldest (37) and youngest (32) sons with colon cancer Father Heart disease Grandmother Breast cancer Brother Colon cancer Multiple sclerosis Pacemaker Sister NHL (non-Hodgkin's lymphoma) Surgical History Hx of colonoscopy History of colectomy History of hysterectomy History of appendectomy History of tonsillectomy History of tubal ligation Social History Smoking Status: Never smoker second hand exposure: No alcohol intake: never substance use type: does not use caffeine: Yes reginald/sabianist: Nazarene seatbelt use: always do you feel safe at home: Yes Review of Systems (Anesthesia) ROS Narrative System reviewed and no additional complaints, except as documented.
--- NOTE | 2024-07-26 07:09 | H&P.OPEN ---
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 No changes since previous office visit. office visit 06/21/24 [facility] HPI: 73-year-old female with known history of Pickens syndrome status post total colectomy presents for proctoscopy as well as EGD for surveillance. Patient is currently on a baby aspirin as well as Mounjaro. Patient still has multiple bowel movements daily due to the previous total colectomy. Otherwise denies any nausea vomiting or abdominal pain. Patient's last colonoscopy was last year and had a rectal tubular adenoma, in 2021 patient had an EGD as well as a proctoscopy which again showed a rectal tubular adenoma. 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 Home Medications ?Medication ?Instructions ?Recorded ?Last Taken ?Type calcium 600 mg (as 2 ea PO DAILY supplement 02/26/14 07/25/24 History carbonate)-vitamin D3 10 mcg (400 unit) tablet multivitamin,[id number] 27 1 tab PO DAILY vitamin 02/26/14 07/25/24 History mg-0.4 mg tablet cholecalciferol (vitamin D3) 125 5,000 unit PO DAILY heparin 05/19/18 07/25/24 History mcg (5,000 unit) capsule cyanocobalamin (vitamin B-12) 500 500 mcg PO DAILY@0800 vitamin 05/19/18 07/25/24 History mcg tablet methimazole 5 mg tablet 2.5 mg PO DAILY hyperthyroid 05/19/18 07/25/24 History cyclosporine 0.09 % eye drops in a 1 drp ophthalmic (eye) BID eye 08/25/21 07/26/24 [facility] health irbesartan 150 mg tablet 1 ea PO DAILY blood pressure 04/21/22 07/25/24 History aspirin 81 mg tablet,delayed 81 mg PO DAILY heart health 02/22/23 07/22/24 History release (Adult Low Dose Aspirin) dapagliflozin propanediol 10 mg 10 mg PO DAILY diabetes 08/26/23 07/25/24 History tablet (Farxiga) atorvastatin 40 mg tablet 40 mg PO DAILY cholesterol 05/26/24 07/25/24 History tirzepatide 5 mg/0.5 mL 5 mg subcut WE diabetes 05/26/24 07/12/24 History subcutaneous pen injector (Mounjaro) Allergy/AdvReac Type Severity Reaction Status Date / Time rofecoxib (From Vioxx) Allergy Intermediate Dizziness Verified 07/26/24 06:38 Family History Son Colon cancer, Onset Age: 32 oldest (37) and youngest (32) sons with colon cancer Father Heart disease Grandmother Breast cancer Brother Colon cancer Multiple sclerosis Pacemaker Sister NHL (non-Hodgkin's lymphoma) Surgical History Hx of colonoscopy History of colectomy History of hysterectomy History of appendectomy History of tonsillectomy History of tubal ligation Social History Smoking Status: Never smoker second hand exposure: No alcohol intake: never substance use type: does not use caffeine: Yes reginald/catholic: Nazarene seatbelt use: always do you feel safe at home: Yes Past Medical/Surgical History Planned Operation Planned Operative Procedure(s): EGD/CSCOPE S.O.S: No Previous Hospitalizations/Surgeries HX Hospitalizations: Yes (05/2024 DIZZINESS/INNER EAR) HX of Surgeries: LEFT KNEE SURGERY, LEFT TOTAL KNEE 2011 TUBES TIED, TONSILLECTOMY, APPENDECTOMY HYSTERECTOMY, BSO, LYMPH NODE DISSECTION LARGE ILLIAC REMOVED 2008 COLECTOMY 2013/ COLON CA COLONOSCOPY 2016 BIOPSY MOLE MELANOMA/ ARM LEFT, 2017 COLONOSCOPY 04/2017 EGD flex sigmoidoscopy Any Problems With Anesthesia: No You/Your Family Experience Fever (Hyperthermia) With Anes: No Cholinesterase deficiency: No Cardiovascular Hx Chest Pain within Last 2 months: No Hx of Irregular Heartbeat and/or Afib: No Hx Heart Attack: No Hx Congestive Heart Failure: No Hx Rheumatic Fever: No Hx Hypertension: Yes (CONTROLLED WITH MED) Hx Internal Defibrillator: No Hx Pacemaker: No Hx Cardiac Catheterization: No Hx Cardiac Surgery/Stents/Etc.: No Hx Stress Test: No Hx Pain in Legs when Walking/Leg Cramps: Yes (AT TIMES) Respiratory Chronic Cough: No HX of Shortness of Breath: Yes (SLIGHTLY SOB WITH 2 FLIGHTS STAIRS) Hoarseness: No Hx Chronic Obstructive Pulmonary Disease (COPD): No Hx Asthma: No Hx Emphysema: No Hx Sleep Apnea: No Hx Respiratory Tract Infection/Cold (presently): No Do You Snore Loudly (louder than talking or can be heard): No Do You Often Feel Tired/ Fatigued/ Sleepy Dring Daytime?: No Has Anyone Observed You Stop Breathing During Sleep?: No Result (for STOP score): Negative Hx Smoking: No Smoking Status: Never smoker Gastrointestinal Hx Gastrointestinal Disorders: Yes (COLON CA, COLECTOMY 2013) Hx Gastrointestinal Bleed: No (hx blood with bowel movement) Hx Ulcer: No Hx Hiatal Hernia: No Difficulty Chewing/Swallowing: No Special diet followed at home: No (diabetic) Hx Unplanned Weight Loss of 20#: No (.) HX Unplanned Weight Gain of 20#: No Neurological Hx Seizures: No HX Syncope/Blackout Spells/Unconsciousness: Yes (PASSED OUT 6 YRS AGO, NOT SINCE) Hx Transient Ischemic Attacks (TIA): No Hx Multiple Sclerosis: No Hx Parkinson's Disease: No Hx Head/Neck Injury: No (hx bells palsy, left eye) Hx Headaches: No Hx Back Injury/Pain: Yes (BACK PAIN OCCAS) Recent Onset of Speech Difficulty: No Restless Legs: No Does patient have nerve stimulator: No Blood Disorder Hx Leukemia: No Bleeding Tendencies: Yes (BRUISE EASILY) Hx Deep Vein Thrombosis: No Hx High Cholesterol: Yes (ON MED) Blood Transmitted Disease: No Hx Hepatitis: No Hx Cirrhosis: No Hx Anemia: No Hx Blood Disorders: No Reproduction : No Is Patient Lactating: No Hx Hysterectomy: Yes Hx Tubal Ligation: Yes Are You Post Menopause: Yes Genitourinary Hx Renal Disease: No Musculoskeletal Hx Arthritis: Yes Hx Rheumatoid Arthritis: No Hx Gout: No Recent Onset of an Orthopedic Problem: No Endocrine Hx Diabetes: Yes Insulin: No Thyroid Disease: Yes (MULTINODULAR GOITER PER HX) Hx Steroid Therapy: No Psycho/Social Hx Substance Use: No Hx Alcohol Use: No Hx Anxiety: No Hx Depression: No Mental Illness: No Hx Dementia: No Miscellaneous Hx Cancer: Yes (UTERINE CA, COLON CA, SKIN CA,LYMPH NODE) Recent Exposure to Contagious Disease: No Hx of C-Diff: No Any Loose Teeth: Yes (PARTIAL) Allergies rofecoxib (From Vioxx) Allergy (Intermediate, Verified 07/26/24 06:38) Dizziness DIZZINESS Discharge Is Pt Admitted From a Retirement, or a Half-Way: No After D/C, Where Do you Plan to Go: Return Home From the [facility] History Number of Risk Factors: 5 Vital Signs Vital Signs Vital Signs: 07/26/24 06:41 07/26/24 06:41 07/26/24 06:54 Temperature 97.4 F L 97.4 F L Temperature Source Temporal Pulse Rate 94 94 Respiratory Rate 18 18 Respiratory Pattern Normal Blood Pressure 124/81 H 124/81 H Blood Pressure Mean 95 Blood Pressure Source Monitor Blood Pressure Position Semi-Fowlers Blood Pressure Location Left Arm Pulse Ox 95 95 Oxygen Delivery Method Room Air Weight Weight: 207 lb 3.752 oz Body Mass Index (BMI) 37.9 Physical Exam Const alert, oriented x3 and no apparent distress HEENT normocephalic and head/scalp atraumatic Resp normal respiratory effort Cardio regular rate GI soft to palpation and non-tender; Negative for non-distended Palpation: Negative for guarding Extremity no clubbing, cyanosis or edema Skin no rashes or lesions noted Neuro CN's II-XII intact bilaterally Psych mental status grossly normal Assessment & Plan Assessment/Plan (1) Pickens syndrome: (2) H/O rectal polypectomy: Surgery Risks - Colonoscopy I discussed with the patient the risks of the procedure: Yes Risks Include but are not Limited To: Plan for EGD and proctoscopy risks include but are not limited to: Bleeding, perforation requiring further surgery, inability to complete colonoscopy requiring barium enema.
[2024-07-26 07:15] LABS: Bedside Glucose 168 mg/dL (74-106)
--- NOTE | 2024-07-26 07:47 | OP.CCLET_ITS ---
07/26/2024 Noah Brambila Do Re : Upper GI endoscopy procedure for Hermelinda López Dear Dr. Brambila This procedure was performed on Friday, July 26, 2024. My impressions and recommendations are as follows: Impressions : - Z-line variable, 36 cm from the incisors. - Normal examined duodenum. - No gross lesions in the entire stomach. - No specimens collected. Recommendations : - Discharge patient to home. - Resume previous diet. - Continue present medications. - Repeat upper endoscopy 2-3 years for screening purposes. My findings are described in the full procedure note, which is enclosed. If I can be of further assistance, please feel free to contact me at Doctor phone number(s): , Work: . Sincerely, MD Isabel See MD 07/26/2024 7:46:43 AM This report has been signed electronically.
--- NOTE | 2024-07-26 07:47 | OP.EGD_ITS ---
Patient Name: Hermelinda López Procedure Date: 07/26/2024 7:18 AM Date of : 1950 Age: 73 Procedure: Upper GI endoscopy Indications: Hereditary nonpolyposis colorectal cancer (Pickens Syndrome) Providers: Isabel Santo MD Referring MD: Noah Brambila Do Medicines: Monitored Anesthesia Care Patient Profile: This is a 73 year old female. Complications: No immediate complications. Procedure: Pre-Anesthesia Assessment: - Prior to the procedure, a History and Physical was performed, and patient medications and allergies were reviewed. The patient's tolerance of previous anesthesia was also reviewed. The risks and benefits of the procedure and the sedation options and risks were discussed with the patient. All questions were answered, and informed consent was obtained. Prior Anticoagulants: The patient has taken no anticoagulant or antiplatelet agents except for aspirin. ASA Grade Assessment: Per anesthesia. After reviewing the risks and benefits, the patient was deemed in satisfactory condition to undergo the procedure. After obtaining informed consent, the endoscope was passed under direct vision. Throughout the procedure, the patient's blood pressure, pulse, and oxygen saturations were monitored continuously. The Colonoscope was introduced through the mouth, and advanced to the second part of duodenum. The upper GI endoscopy was accomplished without difficulty. The patient tolerated the procedure well. Scope In: 7:31:52 AM Scope Out: 7:36:21 AM Total Procedure Duration Time 0 hours 4 minutes 29 seconds Findings: The Z-line was variable and was found 36 cm from the incisors. The examined duodenum was normal. The cardia and gastric fundus were normal on retroflexion. No gross lesions were noted in the entire examined stomach. Impression: - Z-line variable, 36 cm from the incisors. - Normal examined duodenum. - No gross lesions in the entire stomach. - No specimens collected. Recommendation: - Discharge patient to home. - Resume previous diet. - Continue present medications. - Repeat upper endoscopy 2-3 years for screening purposes. Procedure Code(s): --- Professional --- 14096, PT, Esophagogastroduodenoscopy, flexible, transoral; diagnostic, including collection of specimen(s) by brushing or washing, when performed (separate procedure) Diagnosis Code(s): --- Professional --- K22.89, Other specified disease of esophagus C18.9, Malignant neoplasm of colon, unspecified Z15.09, Genetic susceptibility to other malignant neoplasm CPT copyright 2021 [employer]. All rights reserved. The codes documented in this report are preliminary and upon direct chill caster review may be revised to meet current compliance requirements. MD Isabel See MD 07/26/2024 7:46:43 AM This report has been signed electronically. Number of Addenda: 0 Note Initiated On: 07/26/2024 7:18 AM
--- NOTE | 2024-07-26 07:51 | OP.CCLET_ITS ---
07/26/2024 Noah Brambila Do Re : Colonoscopy procedure for Hermelinda López Dear Dr. Brambila This procedure was performed on Friday, July 26, 2024. My impressions and recommendations are as follows: Impressions : - The rectum is normal. - The distal rectum and anal verge are normal on retroflexion view. - No specimens collected. Recommendations : - Discharge patient to home. - Resume previous diet. - Continue present medications. - Repeat colonoscopy 2-3 years for surveillance. My findings are described in the full procedure note, which is enclosed. If I can be of further assistance, please feel free to contact me at Doctor phone number(s): , Work: . Sincerely, MD Isabel See MD 07/26/2024 7:50:44 AM This report has been signed electronically.
--- NOTE | 2024-07-26 07:51 | OP.COLON_ITS ---
Patient Name: Hermelinda López Procedure Date: 07/26/2024 7:36 AM Date of : 1950 Age: 73 Procedure: Colonoscopy Indications: Pickens Syndrome Providers: Isabel Santo MD Referring MD: Noah Brambila Do Medicines: Monitored Anesthesia Care Patient Profile: This is a 73 year old female. Last Colonoscopy: June 2023. She is status post subtotal colectomy. Complications: No immediate complications. Procedure: Pre-Anesthesia Assessment: - Prior to the procedure, a History and Physical was performed, and patient medications and allergies were reviewed. The patient's tolerance of previous anesthesia was also reviewed. The risks and benefits of the procedure and the sedation options and risks were discussed with the patient. All questions were answered, and informed consent was obtained. Prior Anticoagulants: The patient has taken no anticoagulant or antiplatelet agents except for aspirin. ASA Grade Assessment: Per anesthesia. After reviewing the risks and benefits, the patient was deemed in satisfactory condition to undergo the procedure. After I obtained informed consent, the scope was passed under direct vision. Throughout the procedure, the patient's blood pressure, pulse, and oxygen saturations were monitored continuously. The Colonoscope was introduced through the anus and advanced to the rectum for evaluation. This was the intended extent. The colonoscopy was performed without difficulty. The patient tolerated the procedure well. The quality of the bowel preparation was good. Scope In: 7:37:53 AM Scope Withdrawal Time 0 hours 2 minutes 47 seconds Scope Out: 7:41:42 AM Total Procedure Duration Time 0 hours 3 minutes 49 seconds Findings: The rectum appeared normal. Previous J-pouch to rectum anastomosis widely patent. The retroflexed view of the distal rectum and anal verge was normal and showed no anal or rectal abnormalities. Impression: - The rectum is normal. - The distal rectum and anal verge are normal on retroflexion view. - No specimens collected. Recommendation: - Discharge patient to home. - Resume previous diet. - Continue present medications. - Repeat colonoscopy 2-3 years for surveillance. Procedure Code(s): --- Professional --- 97577, 53,PT, Colonoscopy, flexible; diagnostic, including collection of specimen(s) by brushing or washing, when performed (separate procedure) Diagnosis Code(s): --- Professional --- Z15.09, Genetic susceptibility to other malignant neoplasm CPT copyright 2021 [employer]. All rights reserved. The codes documented in this report are preliminary and upon shoe clerk review may be revised to meet current compliance requirements. MD Isabel See MD 07/26/2024 7:50:44 AM This report has been signed electronically. Number of Addenda: 0 Note Initiated On: 07/26/2024 7:36 AM
--- NOTE | 2024-07-26 07:56 | PCM.POST.ANE ---
Anesthesia: Postop Eval I Current Vital Signs Temperature: 97.8 F Pulse Rate: 86 Blood Pressure: 155/120 Respiratory Rate: 18 Pulse Ox: 94 Oxygen Delivery Method: Room Air Assessment Airway patent: Yes Spontaneous unlabored respirations: Yes Mental status: Asleep nausea: No Vomiting: No Anesthesia Complication: No Fluid Hydration Crystalloid volume administer (ml): 50 Total IV fluid infused: 50 Progress Note Anesthesia document: Postop Eval 1 completed: Yes
--- NOTE | 2024-07-26 11:26 | PCM.POSTANE2 ---
Anesthesia Postop Eval I Sum Postop Eval Completion status Anesthesia document: Postop Eval 1 completed: Yes Anesthesia Postop Eval I Summary Anesthesia Postop Eval I Summary: Anesthesia Postop Eval I: Assessment Summary Airway patent Yes 07/26/24 07:57 [email or web address] Spontaneous unlabored Yes 07/26/24 07:57 [email or web address] respirations Mental status Asleep 07/26/24 07:57 [email or web address] nausea No 07/26/24 07:57 [email or web address] Vomiting No 07/26/24 07:57 [email or web address] Anesthesia Postop Eval I: Fluid Summary Crystalloid volume administer 50 07/26/24 07:57 [email or web address] (ml) Colloids volume administered ( ml) Blood Product volume administered (ml) Total IV fluid infused 50 07/26/24 07:57 [email or web address] Anesthesia Postop Eval I: Summary Notes Anesthesia Complication No 07/26/24 07:57 [email or web address] Anesthesia Complication Comment: Post-operative progress note Anesthesia: Postop Eval II Evaluation Mental status: Awake Pain Level: 0 nausea: No Vomiting: No
== END 2024-07-26 08:30 | disposition home or self-care (01) ==
LOC: EN 05:54 → AC 05:57
PROVIDERS: Visit Provider Surgery
PROC: 0DJD8ZZ Inspection of Lower Intestinal Tract, Via Natural or Artificial Opening Endoscopic (ICD-10-PCS; CPT 45378; principal; 2024-07-26 07:25)
DX: K22.89 Other specified disease of esophagus (principal); E11.22 Type 2 diabetes mellitus with diabetic chronic kidney disease; Z15.09 Genetic susceptibility to other malignant neoplasm; E66.9 Obesity, unspecified; E78.00 Pure hypercholesterolemia, unspecified; I12.9 Hypertensive chronic kidney disease with stage 1 through stage 4 chronic kidney disease, or unspecified chronic kidney disease; N18.9 Chronic kidney disease, unspecified; M19.90 Unspecified osteoarthritis, unspecified site; E05.90 Thyrotoxicosis, unspecified without thyrotoxic crisis or storm; Z80.0 Family history of malignant neoplasm of digestive organs; Z68.37 Body mass index [BMI] 37.0-37.9, adult; Z90.49 Acquired absence of other specified parts of digestive tract; Z85.42 Personal history of malignant neoplasm of other parts of uterus; Z79.82 Long term (current) use of aspirin; Z79.85 Long-term (current) use of injectable non-insulin antidiabetic drugs; Z85.038 Personal history of other malignant neoplasm of large intestine; Z85.820 Personal history of malignant melanoma of skin; Z79.890 Hormone replacement therapy; Z79.899 Other long term (current) drug therapy; Z86.0101 Personal history of adenomatous and serrated colon polyps
CPT/HCPCS: 43235; 45300; 82962; A4216; J2405

== ENCOUNTER → 2024-08-21 | Outpatient (CLI) | payer MEDICARE, SELFPAY ==
--- NOTE | 2024-08-21 08:49 | BI_ITS ---
MAMMOGRAPHY - BILATERAL SCREENING REASON FOR EXAM: Female, 73 years old. Routine annual screening examination. PERTINENT HISTORY: Grandmother with breast cancer. TECHNIQUE: Digital bilateral breast latasha (3D mammographic acquisition) in the CC and MLO projections. 2-D mediolateral oblique (MLO) and craniocaudad (CC) views of both breasts were obtained. CAD: Full Field Digital Mammography with Computer Added Detection was performed. COMPARISON: Comparison is made with prior study dated August 20, 2023 and August 18, 2022. FINDINGS: Breast Composition: The breasts are almost entirely fatty. There are no dominant masses or suspicious calcifications. Stable 4 mm well-defined nodule in the axillary region of the left breast. This is suggestive of a small lymph node. No other significant abnormalities are identified. There has been no significant change since the prior study. BI/SCRN MAMM (CAD)W/LATASHA BILAT IMPRESSION: Stable bilateral screening mammogram. Yearly follow-up mammogram recommended. (A) ASSESSMENT CATEGORY: BIRADS Category 2: Benign. A letter regarding these results will be sent to the patient by the facility within 30 days. Approximately 10% of breast cancers are not detected by mammography. A normal mammogram should not delay biopsy of a clinically suspicious abnormality. [id number] Electronically Signed: Howie De Paz MD at 9:38 EST ,
== END | disposition home or self-care (01) ==
LOC: OPBI 08:48
PROVIDERS: Referring Provider Nurse Practitioner Family; Visit Provider Nurse Practitioner Family
DX: Z12.31 Encounter for screening mammogram for malignant neoplasm of breast (principal); Z15.09 Genetic susceptibility to other malignant neoplasm
CPT/HCPCS: 77063; 77067

== ENCOUNTER → 2024-12-01 | Outpatient (CLI) | payer MEDICARE, SELFPAY ==
--- NOTE | 2024-12-01 07:30 | KNEE_PTH ---
PATIENT: AUGUSTIN NELSON LOC: [facility] U#:[id number] AGE/SX: 74/F ROOM: RE12/01/[address]: Dr. Felipe Garcia MD : 1950 BED: DIS: 12/01/2024 SPEC #: [id number] RECD: 12/01/24 15:04 STATUS: BASILIO REJeremy #: [id number] FILIPPO: 12/01/24 07:[address]: Felipe Garcia DEPT: SURGICAL PATHOLOGY RECD BY: Vincenzo Tovar ENTERED: 12/04/24 07:32 SP TYPE: TOTAL KNEE OTHR DR: Dr. Noah Brambila, [facility] Tissues: A - Knee, NOS Procedures: Decalcification bone/plaque Surgery Specimen Level III HEADER OPERATION: Right total knee arthroplasty PRE-OP DIAGNOSIS: Unilateral primary osteoarthritis, right knee TISSUE SUBMITTED: A- Right knee MICROSCOPIC DIAGNOSIS A. Right knee, osteoarthritis, total knee arthroplasty: * Articular bone and synovium with reactive and degenerative changes. * Fatty marrow spaces. MICROSCOPIC DESCRIPTION Slides are reviewed. GROSS DESCRIPTION A. Received in formalin in a container labeled with the patient's name, date of , and right knee bone are multiple caicedo, firm, and irregular fragments of bone measuring 10.0 x 8.7 x 2.9 cm in aggregate. The specimen consists of, but is not limited to, medial/lateral condyle and tibial plateau. The resection margins are smooth and firm and the cortical surfaces are pitted and granular with smooth eburnation. Sectioning reveals firm surfaces. [employer] sections submitted in A1 following decalcification. [facility] 12-04-2024 CPT:08103,89073
== END | disposition home or self-care (01) ==
LOC: LABSPEC 15:23
PROVIDERS: Referring Provider Orthopaedic Surgery; Visit Provider Orthopaedic Surgery
DX: M17.11 Unilateral primary osteoarthritis, right knee (principal)
CPT/HCPCS: 88305; 88311